=== PATIENT | male | born 1930 ===

== ENCOUNTER 2019-05-17 16:40 | Inpatient (IN) | payer MEDICARE ==
--- NOTE | 2019-05-17 17:10 | RAD ---
Chest AP view INDICATION: Altered mental status with lack of sleep COMPARISON: None FINDINGS: Lungs:The lungs are clear Cardiac silhouette:The cardiomediastinal silhouette appears within normal limits. Pulmonary vasculature:Normal Pleural spaces:No pleural effusion or pneumothorax is demonstrated. Upper abdomen:No abnormality seen. Osseous structures: No acute osseous abnormality. Additional findings:None. IMPRESSION: No acute cardiopulmonary abnormality.
--- NOTE | 2019-05-17 17:23 | CT ---
CT HEAD WITHOUT IV CONTRAST COMPARISON: None HISTORY: Altered mental status TECHNIQUE: Axial CT imaging at 5 mm intervals from vertex through skull base without contrast FINDINGS: There is decreased attenuation in the periventricular white matter which is nonspecific but likely re flective of chronic small vessel ischemic changes. There is mild cerebral volume loss. The ventricular system is normal in size, shape, and position for the degree of sulcal atrophy. There is no evidence of an acute infarction, hemorrhage, mass effect, or midline shift. Trace mucosal thickening is seen in the left sphenoid sinus and right maxillary antrum. Mastoid air c ells are clear. The left aspect posterior arch of the C2 vertebral body is not visualized, but this may be related to incomplete imaging of the C2 vertebral body versus developmental defect. Calvarium demonstrates a normal CT appearance, and no calvarial fracture is seen. IMPRESSION: 1. No acute intracranial abnormality demonstrated. 2. Chronic small vessel ischemic changes and cerebral volume loss.
[2019-05-17 17:28] LABS: #Eosinphils 0.2 thou/uL (0.0-0.7); #Lymphocytes 1.8 thou/uL (1.20-3.40); #Monocytes 0.9 thou/uL (0.11-0.59); #Neutrophils 6.5 thou/uL (1.40-6.50); %Basophils 0.3 % (0.0-1.0); %Eosinophils 1.8 % (0.0-10.0); %Lymphocytes 19.6 % (21.0-51.0); %Monocytes 9.2 % (0.0-10.0); %Neutrophils 69.2 % (42.0-75.0); Hemoglobin 13.5 g/dL (14.0-18.0); Mean Corpuscular HGB CONC 32.8 g/dL (32.0-36.0); Mean Corpuscular Hemoglobin 32.7 pg (27.0-31.0); Mean Corpuscular Volume 99.5 fL (78.0-98.0); Mean Platelet Volume 7.7 fL (7.4-10.4); Platelet Count 227 thou/uL (130-400); RBC Distribution Width 12.7 % (11.5-14.5); Red Blood Cell (RBC) Count 4.13 mill/uL (4.70-6.10); White Blood Cell (WBC) Count 9.4 thou/uL (4.8-10.8)
[2019-05-17 17:35] LABS: PTT 31.7 SEC (22.9-36.1)
[2019-05-17 17:53] LABS: ALT (SGPT) 15 U/L (8-55); AST (SGOT) 19 U/L (5-34); Albumin 4.6 g/dL (3.4-4.8); Alkaline Phosphatase 69 U/L (40-110); Anion Gap 11 mmol/L (10-20); BUN (Urea Nitrogen) 17 mg/dL (8.4-25.7); Bilirubin, Total 0.4 mg/dL (0.2-1.2); CK (CPK) 296 U/L (30-200); Calc. Creatinine Clearance 0 mL/min (70-130); Calcium 9.8 mg/dL (7.8-10.44); Carbon Dioxide 27 mmol/L (23-31); Chloride 106 mmol/L (98-107); Estimated GFR-MDRD 51; Glucose 117 mg/dL (83-110); Protein, Total 7.6 g/dL (5.8-8.1); Sodium 140 mmol/L (136-145)
[2019-05-17 19:11] LABS: Bacteria/HPF 4+ HPF (None Seen); Bilirubin Negative (Negative); Blood, Urine Negative (Negative); Clarity Turbid (Clear); Glucose, Urine (Dipstick) Normal (Negative); Leukocyte 500 Leu/uL (Negative); Nitrite 2+ (Negative); Protein, Urine (Dipstick) 50 mg/dL (Neg-Trace); RBC/HPF 0-3 HPF (0-3); Squamous Epithelial 0-3 HPF (0-3); Urobilinogen Normal mg/dL (Less than 2); WBC/HPF 21-50 HPF (0-3)
[2019-05-17] MEDS ORDERED: cefTRIAXone\\ROCEPHIN 2 GM VIAL ONE (19:55)
[2019-05-17] MEDS ORDERED: traMADol HCl 50 MG TAB ONE (19:55)
[2019-05-17 21:36] LABS: Troponin I 0.046 ng/mL (< 0.028)
[2019-05-17] MEDS ORDERED: Ondansetron PF 4 MG/2 ML Vial IVP PRN (22:21)
[2019-05-17] MEDS ORDERED: Ondansetron ODT 4 MG TAB SL PRN (22:21)
[2019-05-17] MEDS ORDERED: Sodium Chloride 0.9% 1,000 ML IV SCH (22:30)
[2019-05-17 22:37] VITALS: BMI 25.4
[2019-05-18] MEDS: Acetaminophen 325 MG TAB PO PRN (00:57)
[2019-05-18 01:10] LABS: Troponin I 0.034 ng/mL (< 0.028)
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
[2019-05-18 04:33] LABS: #Eosinphils 0.3 thou/uL (0.0-0.7); #Monocytes 0.8 thou/uL (0.11-0.59); #Neutrophils 4.9 thou/uL (1.40-6.50); %Basophils 0.5 % (0.0-1.0); %Eosinophils 3.6 % (0.0-10.0); %Lymphocytes 24.8 % (21.0-51.0); %Monocytes 9.8 % (0.0-10.0); %Neutrophils 61.3 % (42.0-75.0); Hemoglobin 12.3 g/dL (14.0-18.0); Mean Corpuscular HGB CONC 32.2 g/dL (32.0-36.0); Mean Corpuscular Hemoglobin 32.6 pg (27.0-31.0); Mean Platelet Volume 8.1 fL (7.4-10.4); Platelet Count 194 thou/uL (130-400); RBC Distribution Width 12.7 % (11.5-14.5); Red Blood Cell (RBC) Count 3.78 mill/uL (4.70-6.10)
[2019-05-18 04:55] LABS: Anion Gap 12 mmol/L (10-20); BUN (Urea Nitrogen) 14 mg/dL (8.4-25.7); Calc. Creatinine Clearance 77 mL/min (70-130); Carbon Dioxide 22 mmol/L (23-31); Chloride 108 mmol/L (98-107); Estimated GFR-MDRD 75; Glucose 102 mg/dL (83-110); Potassium 3.8 mmol/L (3.5-5.1); Sodium 138 mmol/L (136-145)
[2019-05-18] MEDS: Enoxaparin Sodium 40 MG/0.4 ML SYRINGE SC SCH (10:09)
[2019-05-18] MEDS: Phenazopyridine HCl 97.5 MG TABLET PO PRN (10:09)
[2019-05-18] MEDS: Famotidine 20 MG TAB PO SCH (10:09)
[2019-05-18] MEDS: cefTRIAXone\\ROCEPHIN 1 GM in Sodium Chloride 0.9% 100 ML IVPB SCH (11:02)
[2019-05-18] MEDS: Morphine 2 MG/ML SYRINGE SLOW IVP PRN ×2 (11:03→23:29)
--- NOTE | 2019-05-18 13:54 | PDOC.HOSPP ---
- Subjective Encounter Date: 05/18/19 Encounter Time: 10:40 Subjective: quite confused, off the bed. d/w RN on today's plan. pt has diaper. penozopyridine trial for bladder spasm. may need santana, if he allows us. Fall risk, consider having a sitter. - Objective Vital Signs & Weight: Vital Signs (12 hours) Temp Pulse Resp BP BP Pulse Ox 05/18/19 11:12 97.5 F L 115 H 18 139/80 97 05/18/19 08:30 97.5 F L 107 H 18 158/87 H 99 05/18/19 04:06 98.3 F 110 H 18 148/75 H 97 Weight Weight 214 lb 6.4 oz I&O: 05/17/19 05/18/19 05/19/19 06:59 06:59 06:59 Intake Total 1920 Output Total 150 Balance 1770 Result Diagrams: 05/18/19 03:57 05/18/19 03:57 Hospitalist ROS - Medication Medications: Active Medications Generic Name Dose Route Start Last Admin Trade Name Freq PRN Reason Stop Dose Admin Acetaminophen 650 mg 05/18/19 00:06 05/18/19 00:57 Tylenol PO 650 mg Q4H PRN Administration Headache/Fever/Mild Pain (1-3) Enoxaparin Sodium 40 mg 05/18/19 09:00 05/18/19 10:09 Lovenox SC 40 mg 0900 AMANDA Administration Famotidine 20 mg 05/18/19 09:00 05/18/19 10:09 Pepcid PO 20 mg 0900 AMANDA Administration Ceftriaxone Sodium 1 gm/ 100 mls @ 200 mls/hr 05/18/19 11:00 05/18/19 11:02 Sodium Chloride IVPB 100 mls 1100 AMANDA Administration Morphine Sulfate 1 mg 05/18/19 10:32 05/18/19 11:03 Morphine SLOW IVP 05/20/19 10:33 1 mg Q12H PRN Administration Pain Phenazopyridine HCl 195 mg 05/18/19 09:42 05/18/19 10:09 Azo Standard PO 195 mg TIDPRN PRN Administration Pain - Exam General Appearance: NAD General - other findings: AOx1 Eye: PERRL ENT: normocephalic atraumatic Neck: supple, symmetric Heart: RRR Respiratory: CTAB Gastrointestinal: normal bowel sounds Neurological: cranial nerve grossly intact, no focal deficits Hosp A/P - Plan Acute metab encephlaopathy -poss d/t UTI -no mich has been scheduled. - will notify micro lab to do urine mcih & Sens. - may need another sample. -cw ctx. UTI - as above -pehnozopyridine, PRN Dementia -supportive care No family around during my rounds. full code.
[2019-05-18] MEDS ORDERED: cefTRIAXone\\ROCEPHIN 1 GM in Sodium Chloride 0.9% 100 ML IVPB SCH (20:00)
[2019-05-18] MEDS: Melatonin 3 MG TAB PO PRN (23:53)
[2019-05-19] MEDS: Morphine 2 MG/ML SYRINGE SLOW IVP PRN (07:45)
[2019-05-19] MEDS: Phenazopyridine HCl 97.5 MG TABLET PO PRN ×2 (07:46→20:08)
[2019-05-19] MEDS ORDERED: hydrALAZINE 20 MG/ML VIAL SLOW IVP PRN (10:05)
--- NOTE | 2019-05-19 10:50 | PDOC.HOSPP ---
- Subjective Encounter Date: 05/19/19 Encounter Time: 09:55 Subjective: more alert today unlike y'day, but keep asking for four [severe dementia- starting back home meds - Objective Vital Signs & Weight: Vital Signs (12 hours) Temp Pulse Resp BP Pulse Ox 05/19/19 07:37 97.6 F 84 18 170/80 H 99 05/19/19 03:32 97.4 F L 65 16 153/95 H 93 L 05/18/19 23:44 155/76 H Weight Weight 214 lb 6.4 oz I&O: 05/18/19 05/19/19 05/20/19 06:59 06:59 06:59 Intake Total 1920 1500 Output Total 150 200 Balance 1770 1300 Result Diagrams: 05/18/19 03:57 05/18/19 03:57 Hospitalist ROS - Medication Medications: Active Medications Generic Name Dose Route Start Last Admin Trade Name Freq PRN Reason Stop Dose Admin Acetaminophen 650 mg 05/18/19 00:06 05/18/19 00:57 Tylenol PO 650 mg Q4H PRN Administration Headache/Fever/Mild Pain (1-3) Enoxaparin Sodium 40 mg 05/18/19 09:00 05/18/19 10:09 Lovenox SC 40 mg 0900 AMANDA Administration Famotidine 20 mg 05/18/19 09:00 05/18/19 10:09 Pepcid PO 20 mg 0900 AMANDA Administration Ceftriaxone Sodium 1 gm/ 100 mls @ 200 mls/hr 05/18/19 11:00 05/18/19 11:02 Sodium Chloride IVPB 100 mls 1100 AMANDA Administration Melatonin 3 mg 05/18/19 23:13 05/18/19 23:53 Melatonin PO 3 mg HSPRN PRN Administration Insomnia Morphine Sulfate 1 mg 05/18/19 10:32 05/19/19 07:45 Morphine SLOW IVP 05/20/19 10:33 1 mg Q12H PRN Administration Pain Phenazopyridine HCl 195 mg 05/18/19 09:42 05/19/19 07:46 Azo Standard PO 195 mg TIDPRN PRN Administration Pain Sodium Chloride 10 ml 05/18/19 21:00 05/19/19 07:47 Flush - Normal Saline IVF 10 ml Q12HR AMANDA Administration - Exam General Appearance: NAD, awake alert General - other findings: still disoreinted ENT: normocephalic atraumatic Neck: supple Heart: RRR Respiratory: no wheezes, rales, rhonchi Gastrointestinal: soft, normal bowel sounds Neurological: no focal deficits Hosp A/P - Plan Acute metab encephlaopathy with underlying hx of dementia -poss d/t UTI -no mich has been scheduled. - will notify micro lab to do urine mich & Sens. - may need another sample. -cw ctx. GNR UTI - on ctx -sens pending. -phenozopyridine, PRN for bladder discomfort. abn.troponin --prob metabolic mismatch, type II. -on BB< aCEI Dementia -supportive care -ordered TSH, apurva D, B12 and [place] level and pl fw on BPH -on tamsulosin No family around during my rounds. full code.
[2019-05-19] MEDS ORDERED: Cyanocobalamin (Vitamin B-12) 1,000 MCG TAB PO SCH (11:15)
[2019-05-19] MEDS ORDERED: Atenolol 25 MG TAB PO SCH ×2 (11:15→21:00)
[2019-05-19] MEDS ORDERED: Amlodipine 10 MG TAB PO SCH (11:15)
[2019-05-19] MEDS ORDERED: Lisinopril 20 MG TAB PO SCH (11:15)
[2019-05-19] MEDS ORDERED: Tamsulosin HCl 0.4 MG CAP PO SCH (11:15)
[2019-05-19] MEDS: Famotidine 20 MG TAB PO SCH (11:37)
[2019-05-19] MEDS: traMADol HCl 50 MG TAB PO PRN (11:39)
[2019-05-19] MEDS: Enoxaparin Sodium 40 MG/0.4 ML SYRINGE SC SCH (11:41)
[2019-05-19] MEDS: cefTRIAXone\\ROCEPHIN 1 GM in Sodium Chloride 0.9% 100 ML IVPB SCH (11:42)
[2019-05-19 12:10] LABS: Vitamin D, 25 Hydroxy 13.6 ng/ml (> 30.0)
[2019-05-19] MEDS: Budesonide 0.5 MG/2 ML NEB NEB SCH (18:49)
[2019-05-19] MEDS: Atenolol 25 MG TAB PO SCH (20:08)
[2019-05-19] MEDS: Finasteride 5 MG TAB PO SCH (20:09)
[2019-05-20] MEDS: Lisinopril 20 MG TAB PO SCH (08:42)
[2019-05-20] MEDS: Tamsulosin HCl 0.4 MG CAP PO SCH (08:43)
[2019-05-20] MEDS: Atenolol 25 MG TAB PO SCH ×2 (08:43→20:34)
[2019-05-20] MEDS: Cyanocobalamin (Vitamin B-12) 1,000 MCG TAB PO SCH (08:43)
[2019-05-20] MEDS: Famotidine 20 MG TAB PO SCH (08:43)
[2019-05-20] MEDS: Amlodipine 10 MG TAB PO SCH (08:44)
[2019-05-20] MEDS: Enoxaparin Sodium 40 MG/0.4 ML SYRINGE SC SCH (08:47)
[2019-05-20] MEDS: Budesonide 0.5 MG/2 ML NEB NEB SCH ×2 (08:53→19:42)
[2019-05-20] MEDS ORDERED: Lisinopril 20 MG TAB PO SCH (09:00)
[2019-05-20] MEDS ORDERED: Cyanocobalamin (Vitamin B-12) 1,000 MCG TAB PO SCH (09:00)
[2019-05-20] MEDS: cefTRIAXone\\ROCEPHIN 1 GM in Sodium Chloride 0.9% 100 ML IVPB SCH (12:00)
--- NOTE | 2019-05-20 12:27 | PDOC.HOSPP ---
- Subjective Encounter Date: 05/20/19 Encounter Time: 08:40 Subjective: not in distress, not fully oriented but tries to communicate. - Objective Vital Signs & Weight: Vital Signs (12 hours) Temp Pulse Resp BP BP Pulse Ox 05/20/19 08:53 89 20 05/20/19 08:44 71 05/20/19 08:43 71 149/73 H 05/20/19 08:42 149/73 H 05/20/19 07:47 97.6 F 71 18 149/73 H 98 05/20/19 03:45 97.3 F L 87 14 146/82 H 92 L Weight Weight 214 lb 6.4 oz I&O: 05/19/19 05/20/19 05/21/19 06:59 06:59 06:59 Intake Total 1500 2049 Output Total 200 1550 Balance 1300 0 -1550 Result Diagrams: 05/18/19 03:57 05/18/19 03:57 Hospitalist ROS - Medication Medications: Active Medications Generic Name Dose Route Start Last Admin Trade Name Freq PRN Reason Stop Dose Admin Acetaminophen 650 mg 05/18/19 00:06 05/18/19 00:57 Tylenol PO 650 mg Q4H PRN Administration Headache/Fever/Mild Pain (1-3) Albuterol/Ipratropium 3 ml 05/19/19 13:00 05/20/19 11:22 Duoneb NEB Not Given QID AMANDA Amlodipine Besylate 10 mg 05/20/19 09:00 05/20/19 08:44 Norvasc PO 10 mg DAILY AMANDA Administration Atenolol 25 mg 05/19/19 21:00 05/20/19 08:43 Tenormin PO 25 mg BID AMANDA Administration Budesonide 0.5 mg 05/19/19 21:00 05/20/19 08:53 Pulmicort Neb Solution NEB 0.5 mg BID AMANDA Administration Cyanocobalamin 1,000 mcg 05/20/19 09:00 05/20/19 08:43 Vitamin B-12 PO 1,000 mcg DAILY AMANDA Administration Enoxaparin Sodium 40 mg 05/18/19 09:00 05/20/19 08:47 Lovenox SC 40 mg 0900 AMANDA Administration Famotidine 20 mg 05/18/19 09:00 05/20/19 08:43 Pepcid PO 20 mg 0900 AMANDA Administration Finasteride 5 mg 05/19/19 21:00 05/19/19 20:09 Proscar PO 5 mg HS AMANDA Administration Ceftriaxone Sodium 1 gm/ 100 mls @ 200 mls/hr 05/18/19 11:00 05/20/19 12:00 Sodium Chloride IVPB 100 mls 1100 AMANDA Administration Lisinopril 40 mg 05/20/19 09:00 05/20/19 08:42 Zestril PO 40 mg DAILY AMANDA Administration [place] Carbonate 300 mg 05/19/19 21:00 05/20/19 08:44 Lithobid Er PO 300 mg BID AMANDA Administration Melatonin 3 mg 05/18/19 23:13 05/18/19 23:53 Melatonin PO 3 mg HSPRN PRN Administration Insomnia Phenazopyridine HCl 195 mg 05/18/19 09:42 05/19/19 20:08 Azo Standard PO 195 mg TIDPRN PRN Administration Pain Sodium Chloride 10 ml 05/18/19 21:00 05/20/19 08:47 Flush - Normal Saline IVF 10 ml Q12HR AMANDA Administration Sodium Chloride 10 ml 05/18/19 09:41 05/20/19 12:01 Flush - Normal Saline IVF 10 ml PRN PRN Administration Saline Flush Tamsulosin HCl 0.4 mg 05/20/19 09:00 05/20/19 08:43 Flomax PO 0.4 mg DAILY AMANDA Administration Tramadol HCl 50 mg 05/19/19 10:04 05/19/19 11:39 Ultram PO 50 mg QIDPRN PRN Administration Pain - Exam General Appearance: awake alert Eye: PERRL, anicteric sclera ENT: no oropharyngeal lesions, dry oral mucosa Neck: supple, no JVD Heart: no murmur, no gallops Respiratory: no wheezes, no rales Gastrointestinal: soft, non-tender, non-distended, normal bowel sounds Extremities: no cyanosis, no edema Neurological: cranial nerve grossly intact, no focal deficits Hosp A/P (1) UTI (urinary tract infection) Status: Acute Qualifiers: Urinary tract infection type: acute cystitis Hematuria presence: without hematuria Qualified Code(s): N30.00 - Acute cystitis without hematuria (2) Acute metabolic encephalopathy Code(s): G93.41 - METABOLIC ENCEPHALOPATHY Status: Acute (3) Dementia Code(s): F03.90 - UNSPECIFIED DEMENTIA WITHOUT BEHAVIORAL DISTURBANCE Status: Chronic Qualifiers: Dementia type: Alzheimer's disease (4) HTN (hypertension) Code(s): I10 - ESSENTIAL (PRIMARY) HYPERTENSION Status: Chronic Qualifiers: Hypertension type: essential hypertension Qualified Code(s): I10 - Essential (primary) hypertension (5) BPH (benign prostatic hyperplasia) Code(s): N40.0 - BENIGN PROSTATIC HYPERPLASIA WITHOUT LOWER URINRY TRACT SYMP Status: Chronic Qualifiers: Lower urinary tract symptom presence: symptoms present Lower urinary tract symptom detail: urinary retention Qualified Code(s): N40.1 - Benign prostatic hyperplasia with lower urinary tract symptoms; R33.8 - Other retention of urine (6) Urinary retention Code(s): R33.9 - RETENTION OF URINE, UNSPECIFIED Status: Acute (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 cipro for uti, continue norvasc, lisinopril, atenolol, flomax, proscar, pulmicort inh. likely has bipolar disorder and is on lithium bid tx patient to medical floor hemostable dc plan in am if stable
[2019-05-20] MEDS: traMADol HCl 50 MG TAB PO PRN ×2 (18:31→23:36)
[2019-05-20] MEDS: Acetaminophen 325 MG TAB PO PRN ×2 (18:32→23:35)
[2019-05-20] MEDS: Melatonin 3 MG TAB PO PRN (20:33)
[2019-05-20] MEDS: Phenazopyridine HCl 97.5 MG TABLET PO PRN (20:33)
[2019-05-20] MEDS: Ciprofloxacin 500 MG TAB PO SCH (20:34)
[2019-05-20] MEDS: Finasteride 5 MG TAB PO SCH (20:34)
[2019-05-20] MEDS: Temazepam 15 MG CAP PO PRN (21:42)
[2019-05-21] MEDS: Lorazepam 0.5 MG TAB PO PRN ×3 (01:11→21:09)
[2019-05-21] MEDS: Ciprofloxacin 500 MG TAB PO SCH ×2 (05:48→19:48)
[2019-05-21] MEDS: Budesonide 0.5 MG/2 ML NEB NEB SCH ×3 (06:11→19:15)
[2019-05-21 09:11] LABS: #Eosinphils 0.3 thou/uL (0.0-0.7); #Lymphocytes 1.7 thou/uL (1.20-3.40); #Monocytes 0.9 thou/uL (0.11-0.59); #Neutrophils 5.4 thou/uL (1.40-6.50); %Basophils 0.5 % (0.0-1.0); %Monocytes 10.9 % (0.0-10.0); %Neutrophils 64.7 % (42.0-75.0); Hemoglobin 12.2 g/dL (14.0-18.0); Mean Corpuscular HGB CONC 33.1 g/dL (32.0-36.0); Mean Corpuscular Hemoglobin 33.3 pg (27.0-31.0); Platelet Count 142 thou/uL (130-400); RBC Distribution Width 12.5 % (11.5-14.5); Red Blood Cell (RBC) Count 3.67 mill/uL (4.70-6.10); White Blood Cell (WBC) Count 8.3 thou/uL (4.8-10.8)
[2019-05-21 09:33] LABS: ALT (SGPT) 9 U/L (8-55); AST (SGOT) 11 U/L (5-34); Albumin 3.6 g/dL (3.4-4.8); Alkaline Phosphatase 49 U/L (40-110); Anion Gap 12 mmol/L (10-20); BUN (Urea Nitrogen) 30 mg/dL (8.4-25.7); Bilirubin, Total 0.3 mg/dL (0.2-1.2); Calc. Creatinine Clearance 54 mL/min (70-130); Calcium 8.6 mg/dL (7.8-10.44); Carbon Dioxide 21 mmol/L (23-31); Chloride 105 mmol/L (98-107); Estimated GFR-MDRD 51; Globulin 2.5 g/dL (2.4-3.5); Glucose 134 mg/dL (83-110); Potassium 3.9 mmol/L (3.5-5.1); Protein, Total 6.1 g/dL (5.8-8.1); Sodium 134 mmol/L (136-145)
[2019-05-21] MEDS: Atenolol 25 MG TAB PO SCH (09:35)
[2019-05-21] MEDS: Famotidine 20 MG TAB PO SCH (09:35)
[2019-05-21] MEDS: Amlodipine 10 MG TAB PO SCH (09:36)
[2019-05-21] MEDS: Lisinopril 20 MG TAB PO SCH (09:36)
[2019-05-21] MEDS: Cyanocobalamin (Vitamin B-12) 1,000 MCG TAB PO SCH (09:37)
[2019-05-21] MEDS: Tamsulosin HCl 0.4 MG CAP PO SCH (09:37)
[2019-05-21] MEDS: Enoxaparin Sodium 40 MG/0.4 ML SYRINGE SC SCH (09:38)
--- NOTE | 2019-05-21 12:39 | PDOC.HOSPP ---
- Subjective Encounter Date: 05/21/19 Encounter Time: 11:45 Subjective: is watching tv, not in distress no complaints, says he feels good. - Objective Vital Signs & Weight: Vital Signs (12 hours) Temp Pulse Resp BP BP BP Pulse Ox 05/21/19 12:09 97.8 F 57 L 18 129/80 93 L 05/21/19 10:26 71 16 93 L 05/21/19 09:36 50 L 149/73 H 05/21/19 09:35 50 L 113/69 05/21/19 08:16 97.5 F L 50 L 16 113/69 95 05/21/19 08:00 94 L 05/21/19 06:11 65 16 94 L 05/21/19 05:05 97.6 F 50 L 20 111/56 L 94 L Weight Weight 214 lb 6.4 oz I&O: 05/20/19 05/21/19 05/22/19 06:59 06:59 06:59 Intake Total 2049 158 Output Total 2330 Balance 2049 - Result Diagrams: 05/21/19 09:03 05/21/19 09:03 Hospitalist ROS - Medication Medications: Active Medications Generic Name Dose Route Start Last Admin Trade Name Freq PRN Reason Stop Dose Admin Acetaminophen 650 mg 05/18/19 00:06 05/20/19 23:35 Tylenol PO 650 mg Q4H PRN Administration Headache/Fever/Mild Pain (1-3) Albuterol/Ipratropium 3 ml 05/21/19 07:00 05/21/19 10:26 Duoneb NEB 3 ml QID-RT AMANDA Administration Amlodipine Besylate 10 mg 05/20/19 09:00 05/21/19 09:36 Norvasc PO 10 mg DAILY AMANDA Administration Atenolol 25 mg 05/21/19 09:00 05/21/19 09:35 Tenormin PO 25 mg DAILY AMANDA Administration Budesonide 0.5 mg 05/21/19 06:30 05/21/19 06:17 Pulmicort Neb Solution NEB Not Given BID-RT AMANDA Ciprofloxacin 500 mg 05/20/19 20:00 05/21/19 05:48 Cipro PO 500 mg 06,1999 AMANDA Administration Cyanocobalamin 1,000 mcg 05/20/19 09:00 05/21/19 09:37 Vitamin B-12 PO 1,000 mcg DAILY AMANDA Administration Enoxaparin Sodium 40 mg 05/18/19 09:00 05/21/19 09:38 Lovenox SC 40 mg 09 AMANDA Administration Famotidine 20 mg 05/18/19 09:00 05/21/19 09:35 Pepcid PO 20 mg 0900 AMANDA Administration Finasteride 5 mg 05/19/19 21:00 05/20/19 20:34 Proscar PO 5 mg HS AMANDA Administration Lisinopril 40 mg 05/20/19 09:00 05/21/19 09:36 Zestril PO 40 mg DAILY AMANDA Administration [place] Carbonate 300 mg 05/19/19 21:00 05/21/19 09:38 Lithobid Er PO 300 mg BID AMANDA Administration Melatonin 3 mg 05/18/19 23:13 05/20/19 20:33 Melatonin PO 3 mg HSPRN PRN Administration Insomnia Phenazopyridine HCl 195 mg 05/18/19 09:42 05/20/19 20:33 Azo Standard PO 195 mg TIDPRN PRN Administration Pain Sodium Chloride 10 ml 05/18/19 21:00 05/21/19 09:39 Flush - Normal Saline IVF 10 ml Q12HR AMANDA Administration Sodium Chloride 10 ml 05/18/19 09:41 05/20/19 12:01 Flush - Normal Saline IVF 10 ml PRN PRN Administration Saline Flush Tamsulosin HCl 0.4 mg 05/20/19 09:00 05/21/19 09:37 Flomax PO 0.4 mg DAILY AMANDA Administration Temazepam 15 mg 05/20/19 21:29 05/20/19 21:42 Restoril PO 15 mg HSPRN PRN Administration Insomnia Tramadol HCl 50 mg 05/19/19 10:04 05/20/19 23:36 Ultram PO 50 mg QIDPRN PRN Administration Pain - Exam General Appearance: awake alert Eye: PERRL, anicteric sclera ENT: no oropharyngeal lesions, moist mucosa Neck: supple, no JVD Heart: RRR, no murmur Respiratory: no wheezes, no rales Gastrointestinal: soft, non-tender, non-distended, normal bowel sounds Extremities: no cyanosis, no edema Neurological: cranial nerve grossly intact, no focal deficits Hosp A/P (1) UTI (urinary tract infection) Status: Acute Qualifiers: Urinary tract infection type: acute cystitis Hematuria presence: without hematuria Qualified Code(s): N30.00 - Acute cystitis without hematuria (2) Acute metabolic encephalopathy Code(s): G93.41 - METABOLIC ENCEPHALOPATHY Status: Acute (3) Dementia Code(s): F03.90 - UNSPECIFIED DEMENTIA WITHOUT BEHAVIORAL DISTURBANCE Status: Chronic Qualifiers: Dementia type: Alzheimer's disease (4) HTN (hypertension) Code(s): I10 - ESSENTIAL (PRIMARY) HYPERTENSION Status: Chronic Qualifiers: Hypertension type: essential hypertension Qualified Code(s): I10 - Essential (primary) hypertension (5) BPH (benign prostatic hyperplasia) Code(s): N40.0 - BENIGN PROSTATIC HYPERPLASIA WITHOUT LOWER URINRY TRACT SYMP Status: Chronic Qualifiers: Lower urinary tract symptom presence: symptoms present Lower urinary tract symptom detail: urinary retention Qualified Code(s): N40.1 - Benign prostatic hyperplasia with lower urinary tract symptoms; R33.8 - Other retention of urine (6) Urinary retention Code(s): R33.9 - RETENTION OF URINE, UNSPECIFIED Status: Acute (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 cipro for uti, continue norvasc, lisinopril, decrease atenolol to daily(bid at home) due to hr around 50/min, flomax, proscar, pulmicort inh. likely has bipolar disorder and is on lithium bid hemostable dc plan in am if stable
[2019-05-21] MEDS: Finasteride 5 MG TAB PO SCH (19:47)
[2019-05-21] MEDS: Phenazopyridine HCl 97.5 MG TABLET PO PRN (19:47)
[2019-05-21] MEDS: Melatonin 3 MG TAB PO PRN (19:47)
[2019-05-21] MEDS: Temazepam 15 MG CAP PO PRN (19:48)
[2019-05-21] MEDS: traMADol HCl 50 MG TAB PO PRN (21:07)
[2019-05-21] MEDS: Acetaminophen 325 MG TAB PO PRN (21:07)
[2019-05-22] MEDS: Lorazepam 0.5 MG TAB PO PRN (00:58)
[2019-05-22] MEDS ORDERED: Lorazepam 0.5 MG TAB PO SCH (03:30)
[2019-05-22] MEDS: Ciprofloxacin 500 MG TAB PO SCH ×2 (04:51→20:19)
[2019-05-22] MEDS: Acetaminophen 325 MG TAB PO PRN ×2 (04:51→20:19)
[2019-05-22] MEDS: traMADol HCl 50 MG TAB PO PRN ×2 (04:52→20:21)
[2019-05-22 06:49] LABS: #Eosinphils 0.3 thou/uL (0.0-0.7); #Lymphocytes 1.4 thou/uL (1.20-3.40); #Monocytes 0.9 thou/uL (0.11-0.59); #Neutrophils 5.1 thou/uL (1.40-6.50); %Basophils 0.6 % (0.0-1.0); %Eosinophils 4.1 % (0.0-10.0); %Lymphocytes 18.4 % (21.0-51.0); %Monocytes 11.2 % (0.0-10.0); %Neutrophils 65.7 % (42.0-75.0); Hemoglobin 11.7 g/dL (14.0-18.0); Mean Corpuscular HGB CONC 33.6 g/dL (32.0-36.0); Mean Corpuscular Hemoglobin 33.6 pg (27.0-31.0); Mean Corpuscular Volume 99.9 fL (78.0-98.0); Mean Platelet Volume 8.2 fL (7.4-10.4); Platelet Count 143 thou/uL (130-400); RBC Distribution Width 12.3 % (11.5-14.5); Red Blood Cell (RBC) Count 3.49 mill/uL (4.70-6.10); White Blood Cell (WBC) Count 7.7 thou/uL (4.8-10.8)
[2019-05-22 07:09] LABS: ALT (SGPT) 8 U/L (8-55); AST (SGOT) 9 U/L (5-34); Albumin 3.6 g/dL (3.4-4.8); Alkaline Phosphatase 48 U/L (40-110); Anion Gap 10 mmol/L (10-20); BUN (Urea Nitrogen) 27 mg/dL (8.4-25.7); Bilirubin, Total 0.3 mg/dL (0.2-1.2); Calc. Creatinine Clearance 68 mL/min (70-130); Calcium 8.9 mg/dL (7.8-10.44); Carbon Dioxide 25 mmol/L (23-31); Chloride 107 mmol/L (98-107); Estimated GFR-MDRD 66; Globulin 2.6 g/dL (2.4-3.5); Glucose 105 mg/dL (83-110); Magnesium 2.3 mg/dL (1.6-2.6); Protein, Total 6.2 g/dL (5.8-8.1); Sodium 138 mmol/L (136-145)
[2019-05-22] MEDS: Atenolol 25 MG TAB PO SCH (08:05)
[2019-05-22] MEDS: Famotidine 20 MG TAB PO SCH (08:05)
[2019-05-22] MEDS: Amlodipine 10 MG TAB PO SCH (08:05)
[2019-05-22] MEDS: Lisinopril 20 MG TAB PO SCH (08:06)
[2019-05-22] MEDS: Cyanocobalamin (Vitamin B-12) 1,000 MCG TAB PO SCH (08:06)
[2019-05-22] MEDS: Tamsulosin HCl 0.4 MG CAP PO SCH (08:06)
[2019-05-22] MEDS: Enoxaparin Sodium 40 MG/0.4 ML SYRINGE SC SCH (08:07)
[2019-05-22] MEDS: Budesonide 0.5 MG/2 ML NEB NEB SCH ×2 (10:23→20:20)
--- NOTE | 2019-05-22 12:34 | PDOC.HOSPP ---
- Subjective Encounter Date: 05/22/19 Encounter Time: 11:45 Subjective: awake, responds to verbal stimuli knows he is in [place] and 's name is Kellee not in distress - Objective Vital Signs & Weight: Vital Signs (12 hours) Temp Pulse Resp BP BP Pulse Ox 05/22/19 10:23 48 L 20 98 05/22/19 08:06 149/73 H 05/22/19 08:05 55 L 05/22/19 08:00 96 05/22/19 07:44 97.4 F L 55 L 19 127/72 96 05/22/19 04:56 59 L 18 99 05/22/19 03:35 61 18 99 Weight Weight 214 lb 6.4 oz I&O: 05/21/19 05/22/19 05/23/19 06:59 06:59 06:59 Intake Total 1580 730 240 Output Total 2330 1950 Balance -750 -1220 240 Result Diagrams: 05/22/19 06:39 05/22/19 06:39 Hospitalist ROS - Medication Medications: Active Medications Generic Name Dose Route Start Last Admin Trade Name Freq PRN Reason Stop Dose Admin Acetaminophen 650 mg 05/18/19 00:06 05/22/19 04:51 Tylenol PO 650 mg Q4H PRN Administration Headache/Fever/Mild Pain (1-3) Albuterol/Ipratropium 3 ml 05/21/19 07:00 05/22/19 10:26 Duoneb NEB 3 ml QID-RT AMANDA Administration Amlodipine Besylate 10 mg 05/20/19 09:00 05/22/19 08:05 Norvasc PO 10 mg DAILY AMANDA Administration Atenolol 25 mg 05/21/19 09:00 05/22/19 08:05 Tenormin PO 25 mg DAILY AMANDA Administration Budesonide 0.5 mg 05/21/19 06:30 05/22/19 10:23 Pulmicort Neb Solution NEB 0.5 mg BID-RT AMANDA Administration Ciprofloxacin 500 mg 05/20/19 20:00 05/22/19 04:51 Cipro PO 500 mg 06,1999 AMANDA Administration Cyanocobalamin 1,000 mcg 05/20/19 09:00 05/22/19 08:06 Vitamin B-12 PO 1,000 mcg DAILY AMANDA Administration Enoxaparin Sodium 40 mg 05/18/19 09:00 05/22/19 08:07 Lovenox SC 40 mg 0900 AMANDA Administration Famotidine 20 mg 05/18/19 09:00 05/22/19 08:05 Pepcid PO 20 mg 0900 AMANDA Administration Finasteride 5 mg 05/19/19 21:00 05/21/19 19:47 Proscar PO 5 mg HS AMANDA Administration Lisinopril 40 mg 05/20/19 09:00 05/22/19 08:06 Zestril PO 40 mg DAILY AMANDA Administration [place] Carbonate 300 mg 05/19/19 21:00 05/22/19 08:06 Lithobid Er PO 300 mg BID AMANDA Administration Melatonin 3 mg 05/18/19 23:13 05/21/19 19:47 Melatonin PO 3 mg HSPRN PRN Administration Insomnia Phenazopyridine HCl 195 mg 05/18/19 09:42 05/21/19 19:47 Azo Standard PO 195 mg TIDPRN PRN Administration Pain Sodium Chloride 10 ml 05/18/19 21:00 05/22/19 08:06 Flush - Normal Saline IVF 10 ml Q12HR AMANDA Administration Sodium Chloride 10 ml 05/18/19 09:41 05/20/19 12:01 Flush - Normal Saline IVF 10 ml PRN PRN Administration Saline Flush Tamsulosin HCl 0.4 mg 05/20/19 09:00 05/22/19 08:06 Flomax PO 0.4 mg DAILY AMANDA Administration Temazepam 15 mg 05/20/19 21:29 05/21/19 19:48 Restoril PO 15 mg HSPRN PRN Administration Insomnia Tramadol HCl 50 mg 05/19/19 10:04 05/22/19 04:52 Ultram PO 50 mg QIDPRN PRN Administration Pain - Exam General Appearance: awake alert Eye: PERRL, anicteric sclera ENT: no oropharyngeal lesions, dry oral mucosa Neck: supple, no JVD Heart: RRR, no murmur Respiratory: no wheezes, no rales Gastrointestinal: soft, non-tender, non-distended, normal bowel sounds Gastrointestinal - other findings: santana+ Extremities: no cyanosis, no edema Neurological: cranial nerve grossly intact, no focal deficits Hosp A/P (1) UTI (urinary tract infection) Status: Acute Qualifiers: Urinary tract infection type: acute cystitis Hematuria presence: without hematuria Qualified Code(s): N30.00 - Acute cystitis without hematuria (2) Acute metabolic encephalopathy Code(s): G93.41 - METABOLIC ENCEPHALOPATHY Status: Acute (3) Dementia Code(s): F03.90 - UNSPECIFIED DEMENTIA WITHOUT BEHAVIORAL DISTURBANCE Status: Chronic Qualifiers: Dementia type: Alzheimer's disease (4) HTN (hypertension) Code(s): I10 - ESSENTIAL (PRIMARY) HYPERTENSION Status: Chronic Qualifiers: Hypertension type: essential hypertension Qualified Code(s): I10 - Essential (primary) hypertension (5) BPH (benign prostatic hyperplasia) Code(s): N40.0 - BENIGN PROSTATIC HYPERPLASIA WITHOUT LOWER URINRY TRACT SYMP Status: Chronic Qualifiers: Lower urinary tract symptom presence: symptoms present Lower urinary tract symptom detail: urinary retention Qualified Code(s): N40.1 - Benign prostatic hyperplasia with lower urinary tract symptoms; R33.8 - Other retention of urine (6) Urinary retention Code(s): R33.9 - RETENTION OF URINE, UNSPECIFIED Status: Acute (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 May remove it if it helps him stay calm at night and start straight cath tid. cipro for uti, continue norvasc, lisinopril, decrease atenolol to daily(bid at home) due to hr around 50/min, flomax, proscar, pulmicort inh. likely has bipolar disorder and is on lithium bid hemostable Risperdal low dose QHS. dc plan to [facility] per family preference, medically stable for dc
[2019-05-22] MEDS: Phenazopyridine HCl 97.5 MG TABLET PO PRN (20:18)
[2019-05-22] MEDS: Finasteride 5 MG TAB PO SCH (20:19)
[2019-05-22] MEDS: Melatonin 3 MG TAB PO PRN (20:19)
[2019-05-22] MEDS: Temazepam 15 MG CAP PO PRN (20:21)
[2019-05-22] MEDS ORDERED: risperiDONE 1 MG TAB PO SCH (21:00)
[2019-05-23 05:49] VITALS: TEMP 97.4
[2019-05-23] MEDS: Ciprofloxacin 500 MG TAB PO SCH (05:52)
[2019-05-23] MEDS: traMADol HCl 50 MG TAB PO PRN (05:52)
[2019-05-23] MEDS: Acetaminophen 325 MG TAB PO PRN (05:52)
[2019-05-23] MEDS: Atenolol 25 MG TAB PO SCH (07:38)
[2019-05-23] MEDS: Enoxaparin Sodium 40 MG/0.4 ML SYRINGE SC SCH (07:38)
[2019-05-23] MEDS: Lisinopril 20 MG TAB PO SCH (07:39)
[2019-05-23] MEDS: Famotidine 20 MG TAB PO SCH (07:39)
[2019-05-23] MEDS: Amlodipine 10 MG TAB PO SCH (07:40)
[2019-05-23] MEDS: Tamsulosin HCl 0.4 MG CAP PO SCH (07:40)
[2019-05-23] MEDS: Cyanocobalamin (Vitamin B-12) 1,000 MCG TAB PO SCH (07:40)
[2019-05-23 08:02] VITALS: BP 125/63
[2019-05-23] MEDS: Budesonide 0.5 MG/2 ML NEB NEB SCH (08:28)
--- NOTE | 2019-05-23 15:35 | PDOC.HOSPP ---
- Subjective Encounter Date: 05/23/19 Encounter Time: 07:30 Subjective: conversing well, no complaints - Objective Vital Signs & Weight: Vital Signs (12 hours) Temp Pulse Resp BP BP BP Pulse Ox 05/23/19 15:11 61 20 95 05/23/19 11:04 50 L 18 94 L 05/23/19 08:28 59 L 18 100 05/23/19 08:00 100 05/23/19 07:59 97.4 F L 58 L 20 125/63 100 05/23/19 07:40 54 L 05/23/19 07:39 149/73 H 05/23/19 07:38 54 L 05/23/19 05:55 54 L 16 152/76 H 100 05/23/19 04:00 97.4 F L 55 L 20 179/83 H 100 Weight Weight 214 lb 6.4 oz I&O: 05/22/19 05/23/19 05/24/19 06:59 06:59 06:59 Intake Total 730 1330 600 Output Total 1950 1000 325 Balance -1220 330 275 Result Diagrams: 05/22/19 06:39 05/22/19 06:39 Hospitalist ROS - Medication Medications: Active Medications Generic Name Dose Route Start Last Admin Trade Name Freq PRN Reason Stop Dose Admin Acetaminophen 650 mg 05/18/19 00:06 05/23/19 05:52 Tylenol PO 650 mg Q4H PRN Administration Headache/Fever/Mild Pain (1-3) Albuterol/Ipratropium 3 ml 05/21/19 07:00 05/23/19 15:11 Duoneb NEB 3 ml QID-RT AMANDA Administration Amlodipine Besylate 10 mg 05/20/19 09:00 05/23/19 07:40 Norvasc PO 10 mg DAILY AMANDA Administration Atenolol 25 mg 05/21/19 09:00 05/23/19 07:38 Tenormin PO 25 mg DAILY AMANDA Administration Budesonide 0.5 mg 05/21/19 06:30 05/23/19 08:28 Pulmicort Neb Solution NEB 0.5 mg BID-RT AMANDA Administration Ciprofloxacin 500 mg 05/20/19 20:00 05/23/19 05:52 Cipro PO 500 mg 0600,2000 AMANDA Administration Cyanocobalamin 1,000 mcg 05/20/19 09:00 05/23/19 07:40 Vitamin B-12 PO 1,000 mcg DAILY AMANDA Administration Enoxaparin Sodium 40 mg 05/18/19 09:00 05/23/19 07:38 Lovenox SC 40 mg 0900 AMANDA Administration Famotidine 20 mg 05/18/19 09:00 05/23/19 07:39 Pepcid PO 20 mg 0900 AMANDA Administration Finasteride 5 mg 05/19/19 21:00 05/22/19 20:19 Proscar PO 5 mg HS AMANDA Administration Lisinopril 40 mg 05/20/19 09:00 05/23/19 07:39 Zestril PO 40 mg DAILY AMANDA Administration [place] Carbonate 300 mg 05/19/19 21:00 05/23/19 07:39 Lithobid Er PO 300 mg BID AMANDA Administration Melatonin 3 mg 05/18/19 23:13 05/22/19 20:19 Melatonin PO 3 mg HSPRN PRN Administration Insomnia Phenazopyridine HCl 195 mg 05/18/19 09:42 05/22/19 20:18 Azo Standard PO 195 mg TIDPRN PRN Administration Pain Risperidone 0.5 mg 05/22/19 21:00 05/22/19 20:19 Risperidone PO 0.5 mg HS AMANDA Administration Sodium Chloride 10 ml 05/18/19 21:00 05/23/19 07:40 Flush - Normal Saline IVF 10 ml Q12HR AMANDA Administration Sodium Chloride 10 ml 05/18/19 09:41 05/20/19 12:01 Flush - Normal Saline IVF 10 ml PRN PRN Administration Saline Flush Tamsulosin HCl 0.4 mg 05/20/19 09:00 05/23/19 07:40 Flomax PO 0.4 mg DAILY AMANDA Administration Temazepam 15 mg 05/20/19 21:29 05/22/19 20:21 Restoril PO 15 mg HSPRN PRN Administration Insomnia Tramadol HCl 50 mg 05/19/19 10:04 05/23/19 05:52 Ultram PO 50 mg QIDPRN PRN Administration Pain - Exam General Appearance: awake alert Eye: PERRL, anicteric sclera ENT: no oropharyngeal lesions, moist mucosa Neck: supple, no JVD Heart: RRR, no murmur Respiratory: no wheezes, no rales Gastrointestinal: soft, non-tender, non-distended, normal bowel sounds Extremities: no cyanosis, no edema Neurological: cranial nerve grossly intact, no focal deficits Hosp A/P (1) UTI (urinary tract infection) Status: Acute Qualifiers: Urinary tract infection type: acute cystitis Hematuria presence: without hematuria Qualified Code(s): N30.00 - Acute cystitis without hematuria (2) Acute metabolic encephalopathy Code(s): G93.41 - METABOLIC ENCEPHALOPATHY Status: Acute (3) Dementia Code(s): F03.90 - UNSPECIFIED DEMENTIA WITHOUT BEHAVIORAL DISTURBANCE Status: Chronic Qualifiers: Dementia type: Alzheimer's disease (4) HTN (hypertension) Code(s): I10 - ESSENTIAL (PRIMARY) HYPERTENSION Status: Chronic Qualifiers: Hypertension type: essential hypertension Qualified Code(s): I10 - Essential (primary) hypertension (5) BPH (benign prostatic hyperplasia) Code(s): N40.0 - BENIGN PROSTATIC HYPERPLASIA WITHOUT LOWER URINRY TRACT SYMP Status: Chronic Qualifiers: Lower urinary tract symptom presence: symptoms present Lower urinary tract symptom detail: urinary retention Qualified Code(s): N40.1 - Benign prostatic hyperplasia with lower urinary tract symptoms; R33.8 - Other retention of urine (6) Urinary retention Code(s): R33.9 - RETENTION OF URINE, UNSPECIFIED Status: Acute (7) Macrocytosis without anemia Code(s): D75.89 - OTHER SPECIFIED DISEASES OF BLOOD AND BLOOD-FORMING ORGANS Status: Chronic (8) Mood disorder Code(s): F39 - UNSPECIFIED MOOD [AFFECTIVE] DISORDER Status: Chronic - Plan straight cath tid. cipro for uti, continue norvasc, lisinopril, decrease atenolol to daily(bid at home) due to hr around 50/min, flomax, proscar, pulmicort inh. has bipolar disorder and is on lithium bid hemostable Risperdal 1mg QHS from [facility]. dc pt to [facility], gave verbal report to .
--- NOTE | 2019-05-23 17:22 | DIS ---
DATE OF ADMISSION: 05/17/2019 DATE OF DISCHARGE: 05/23/2019 DISCHARGE DISPOSITION: To [facility]. PRIMARY DISCHARGE DIAGNOSES: Acute metabolic encephalopathy with urinary tract infection, history of benign prostatic hypertrophy with chronic urinary retention and doing straight catheterization 4 times daily prior to arrival, hypertension, macrocytosis without anemia, likely underlying dementia, bipolar disorder. PROCEDURES DONE DURING HOSPITALIZATION: The patient has had chest x-ray done, which showed no acute cardiopulmonary abnormality. CT brain without contrast showed no acute intracranial abnormality. There are chronic small-vessel ischemic changes with cerebral volume loss seen. Urine culture grew E coli, resistant to ampicillin and Macrobid, but otherwise sensitive to all other antibiotics. White count of 7, hemoglobin and hematocrit are 11 and 34, platelet count 143. BUN 27, creatinine 1.0. B12 of 635. 25-hydroxy vitamin D 13.6. Folic acid 12.4. TSH 0.87. DISCHARGE MEDICATIONS: 1. Ciprofloxacin 500 mg p.o. twice daily for another 5 days. 2. Risperdal 1 mg p.o. at bedtime. 3. Atenolol 25 mg p.o. daily. 4. Ultram 50 mg four times daily p.r.n. 5. Flomax 0.4 mg p.o. daily. 6. Proscar 5 mg p.o. at bedtime. 7. [place] 300 mg p.o. twice daily. 8. Lisinopril 40 mg p.o. daily. 9. DuoNebs four times daily p.r.n. 10. Vitamin B12, 5000 mcg p.o. daily. 11. Pulmicort nebulizer twice daily. 12. Norvasc 10 mg daily. ALLERGIES: NO KNOWN DRUG ALLERGIES. DISCHARGE PLAN: The patient to follow up with Dr. Bahena at [facility]. BRIEF COURSE DURING HOSPITALIZATION: The patient initially got admitted on the for confusion/altered mental state, along with the diarrhea and foul-smelling urine for 4 days. His initial workup revealed UTI with sepsis. He was placed on broad-spectrum antibiotics along with gentle hydration. He has done remarkably well during his stay here. The patient has underlying benign prostatic hypertrophy and was doing straight catheterization 4 times daily prior to arrival here. Due to metabolic encephalopathy, he has had a Berry catheter placed and this was removed 24 hours prior to discharge. He is back on straight cath 3 times a day. The patient has underlying dementia with sundowning. He has had deconditioning and will be shortly discharged to [facility]. He was placed on Risperdal 0.5 mg p.o. at bedtime on the , but the patient was still trying to get out of his bed despite being unstable to walk with risk of falls at night. In view of this, this will be increased to 1 mg at bedtime to see if it works for him. I have given complete updates to Dr. Bahena, he is his primary care physician at the senior care where he will be discharged shortly. A total of 35 minutes was spent on discharge plan. Please see a [id number] documentation for the day of discharge on [employer]. Job ID: [id number]
--- NOTE | 2019-05-24 02:11 | PQF ---
[employer] Glass [employer] Winform Viewer AISHA,SERGEI PHAN MD [id number] [id number] [id number] CLINICAL DOCUMENTATION CLARIFICATION FORM: POST DISCHARGE Addendum to original discharge summary date: ____ Late entry note date: __ DATE: 05/24/19 ATTN:Sergei Singh Please exercise your independent, professional judgment in responding to the clarification form. Clinical indicators are provided on the bottom of this form for your review Cab you please further clarify if Sepsis is ruled in or ruled out? Sepsis [ x] Ruled in diagnosis [ ] Continue to treat [ x] Resolved [ ] Ruled out diagnosis [ ] Cannot rule out diagnosis [ ] Other diagnosis [ ] Unable to determine In addition, please specify: Present on Admission (POA): [ x ] Yes [ ] No [ ] Unable to determine For continuity of documentation, please document condition throughout progress notes and discharge summary. Thank You. CLINICAL INDICATORS - SIGNS / SYMPTOMS / LABS DS pg.2- Initial work up revealed UTI with Sepsis DH and P pg.1- altered mental status H and P pg.2- VS BP 113/87, pulse 109, respiration 21, temp 97.7 DS pg.1- doing straight catheterization 4 times daily prior arrival DS pg.1- Urine culture grew E.coli, resistant to ampicillin RISK FACTORS UTI- DS pg.1 Acute metabolic encephalopathy- DS pg.1 88 years old- H and P pg.1 Dementia- DS pg.1 TREATMENTS Broad spectrum antibiotics- DS pg.2 IV fluids- MAR Urine culture- Microbiology (This form is maintained as a part of the permanent medical record) 2014 [employer]. All Rights Reserved Kelvin [email or web address]
--- NOTE | 2019-05-24 02:15 | PQF ---
[employer] Personal Coach Crystal Reports Winform Viewer AISHA,SERGEI PHAN MD [id number] [facility]264 [id number] CLINICAL DOCUMENTATION CLARIFICATION FORM: POST DISCHARGE Addendum to original discharge summary date: ____ Late entry note date: __ DATE: 05/24/19 ATTN: Sergei Singh Please exercise your independent, professional judgment in responding to the clarification form. Clinical indicators are provided on the bottom of this form for your review Please check appropriate box(s): [ x ] UTI please specify if due to or related to (as applicable): [ ] Indwelling catheter [ x ] Self-catheterization [ ] Suprapubic catheter [ ] Unable to determine etiology UTI Site: [ ] Kidney [ ] Ureter [ ] Bladder [ ] Urethra [ x ] Unable to determine Specify Organism (if known): [ ] Unknown organism [ ] Other diagnosis [ ] Unable to determine In addition, please specify: Present on Admission (POA): [ x ] Yes [ ] No [ ] Unable to determine For continuity of documentation, please document condition throughout progress notes and discharge summary. Thank You. CLINICAL INDICATORS - SIGNS / SYMPTOMS / LABS DS pg.2- Initial work up revealed UTI with Sepsis DS pg.1- Urine culture grew E.coli, resistant to Ampicillin DS pg.1- doing straight catheterization 4 times daily prior arrival H and P pg.1- altered mental status RISK FACTORS UTI- DS pg.1 Acute metabolic encephalopathy- DS pg.1 88 years old- H and P pg.1 Dementia- DS pg.1 TREATMENT: Broad spectrum antibiotics IV fluids- MAR Urine culture- Microbiology (This form is maintained as a part of the permanent medical record) 2014 [employer]. All Rights Reserved Kelvin REGGIE
== END 2019-05-23 18:02 | DRG 698 ==
LOC: ERS 16:40 → 2NO 22:10 → T4-B 05-20 15:44
PROVIDERS: ADMIT Internal Medicine; ATTEND Internal Medicine
DX: T83.511A Infection and inflammatory reaction due to indwelling urethral catheter, initial encounter (principal); G93.41 Metabolic encephalopathy; A41.51 Sepsis due to Escherichia coli [E. coli]; N30.00 Acute cystitis without hematuria; Z16.11 Resistance to penicillins; F05 Delirium due to known physiological condition; N40.1 Benign prostatic hyperplasia with lower urinary tract symptoms; R33.8 Other retention of urine; I10 Essential (primary) hypertension; D75.89 Other specified diseases of blood and blood-forming organs; F03.90 Unspecified dementia, unspecified severity, without behavioral disturbance, psychotic disturbance, mood disturbance, and anxiety; F31.9 Bipolar disorder, unspecified; I48.91 Unspecified atrial fibrillation; J44.9 Chronic obstructive pulmonary disease, unspecified; F51.04 Psychophysiologic insomnia
CPT/HCPCS: 36415; 51701; 70450; 71045; 80048; 80053; 80178; 81003; 81015; 82306; 82550; 82607; 82746; 83605; 83735; 83880; 84443; 84484; 85025; 85610; 85730; 87077; 87086; 87186; 93005; 94640; 94760; 96365; J0696; J1650; J2270; J3490; J7620; J7626

== ENCOUNTER 2020-03-12 12:38 | Inpatient (IN) | payer MEDICARE ==
[2020-03-12 13:52] LABS: Hemoglobin 11.4 g/dL (14.0-18.0); Mean Corpuscular HGB CONC 32.8 g/dL (32.0-36.0); Mean Corpuscular Hemoglobin 33.2 pg (27.0-31.0); Mean Platelet Volume 9.3 fL (7.4-10.4); Platelet Count 180 thou/uL (130-400); RBC Distribution Width 12.3 % (11.5-14.5); Red Blood Cell (RBC) Count 3.45 mill/uL (4.70-6.10); White Blood Cell (WBC) Count 13.8 thou/uL (4.8-10.8)
--- NOTE | 2020-03-12 14:15 | RAD ---
XR Chest 1 View Portable HISTORY: Dyspnea COMPARISON: 05/17/2019 FINDINGS: The heart is enlarged. The aorta is tortuous. There is patchy opacity in the peripheral lef t lower lung. No pneumothoraces or large effusions are seen. IMPRESSION: Findings are suspicious for pneumonia. A follow-up exam should be obtained after course of antibiotics.
[2020-03-12 14:36] LABS: Bilirubin Negative (Negative); Blood, Urine 1+ (Negative); Clarity Turbid (Clear); Glucose, Urine (Dipstick) Normal (Negative); Ketone, Urine Negative (Negative); Leukocyte 500 Leu/uL (Negative); Nitrite Negative (Negative); Protein, Urine (Dipstick) 100 mg/dL (Neg-Trace); RBC/HPF 0-3 HPF (0-3); Squamous Epithelial None Seen HPF (0-3); Urobilinogen Normal mg/dL (Less than 2); WBC/HPF Greater than 50 HPF (0-3); pH, Urine 5.5 (5.0-9.0)
[2020-03-12 14:39] LABS: ALT (SGPT) 12 U/L (8-55); AST (SGOT) 14 U/L (5-34); Albumin 3.3 g/dL (3.4-4.8); Alkaline Phosphatase 72 U/L (40-110); Anion Gap 17 mmol/L (10-20); BUN (Urea Nitrogen) 25 mg/dL (8.4-25.7); Bilirubin, Total 0.6 mg/dL (0.2-1.2); Calc. Creatinine Clearance 0 mL/min (70-130); Calcium 9.2 mg/dL (7.8-10.44); Carbon Dioxide 22 mmol/L (23-31); Chloride 100 mmol/L (98-107); Globulin 2.9 g/dL (2.4-3.5); Glucose 130 mg/dL (83-110); Potassium 4.4 mmol/L (3.5-5.1); Protein, Total 6.2 g/dL (5.8-8.1); Sodium 135 mmol/L (136-145)
[2020-03-12] MEDS ORDERED: cefTRIAXone\\ROCEPHIN 1 GM VIAL ONE (14:39)
[2020-03-12 14:44] LABS: Bacteria/HPF 1+ HPF (None Seen)
[2020-03-12] MEDS ORDERED: Albuterol 200 PUFF (6.7GM INHALER) ONE (14:54)
[2020-03-12] MEDS ORDERED: Dexamethasone 10 MG/ML VIAL ONE (14:54)
[2020-03-12 14:55] LABS: Band 20 % (5-11); Lymphocytes 2 % (21-51); MDiff Complete? YES; Macrocytosis SLIGHT = 6-15 cells (100X) (0-5/hpf); Monocytes 12 % (0-10); Neutrophil 64 % (42-75); Platelet Morphology Comment Appears Adequate; Polychromasia SLIGHT = 2-3 cells (100X) (0-2/hpf); Reactive Lymphocytes 2 % (0-10)
--- NOTE | 2020-03-12 15:11 | PDOC.HHP ---
Hospitalist HPI - History of Present Illness Pneumonia and UTI History of Present Illness: 89-year-old male who was brought to emergency room for increasing shortness of breath, in the emergency room patient was appeared confused and he was poor historian, he was not able to provide good history, in emergency room he was tachypneic and relatively hypoxic, his chest x-ray showed left lower lobe pneumonia, his urine analysis was also consistent with UTI, patient is being admitted for pneumonia and UTI treatment. ED Course: And is given Rocephin and azithromycin as well as patient is given 1 L of IV fluid Hospitalist ROS - Review of Systems ROS unobtainable: due to mental status Hospitalist History - Past Medical History Other Medical History: Atrial fibrillation Hypertension Osteoarthritis COPD - Past Surgical History Other Surgical History: Hip surgery Past psychiatric history anxiety and depression - Family History Other Family History: No strong family history of premature coronary artery disease stroke or cancer - Social History Other Social History: No history of tobacco alcohol or illicit drug abuse - Exam General Appearance: NAD, awake alert Eye: PERRL, anicteric sclera ENT: normocephalic atraumatic, no oropharyngeal lesions Neck: supple, symmetric, no JVD Heart: RRR, no murmur, no gallops, no rubs Respiratory: no wheezes, rales Respiratory - other findings: Left basal rales Gastrointestinal: soft, non-tender, non-distended, normal bowel sounds Extremities: no cyanosis, no clubbing, no edema Skin: normal turgor, no lesions Neurological: no focal deficits Musculoskeletal: normal tone, normal strength Psychiatric: normal affect, normal behavior Hospitalist Results - Labs Result Diagrams: 03/12/20 13:37 03/12/20 13:37 Lab results: WBC 13.8 thou/uL (4.8-10.8) H 03/12/20 13:37 Hgb 11.4 g/dL (14.0-18.0) L 03/12/20 13:37 Hct 34.9 % (42.0-52.0) L 03/12/20 13:37 MCV 101.0 fL (78.0-98.0) H 03/12/20 13:37 Plt Count 180 thou/uL (130-400) 03/12/20 13:37 Band Neuts % (Manual) 20 % (5-11) H 03/12/20 13:37 Sodium 135 mmol/L (136-145) L 03/12/20 13:37 Potassium 4.4 mmol/L (3.5-5.1) 03/12/20 13:37 Chloride 100 mmol/L (98-107) 03/12/20 13:37 Carbon Dioxide 22 mmol/L (23-31) L 03/12/20 13:37 BUN 25 mg/dL (8.4-25.7) 03/12/20 13:37 Creatinine 1.33 mg/dL (0.7-1.3) H 03/12/20 13:37 Glucose 130 mg/dL (83-110) H 03/12/20 13:37 Lactic Acid 1.3 mmol/L (0.5-2.2) 03/12/20 13:37 Calcium 9.2 mg/dL (7.8-10.44) 03/12/20 13:37 Total Bilirubin 0.6 mg/dL (0.2-1.2) 03/12/20 13:37 AST 14 U/L (5-34) 03/12/20 13:37 ALT 12 U/L (8-55) 03/12/20 13:37 Alkaline Phosphatase 72 U/L (40-110) 03/12/20 13:37 Troponin I 0.027 ng/mL (< 0.028) 03/12/20 13:37 B-Natriuretic Peptide 309.3 pg/mL (0-100) H 03/12/20 13:37 Serum Total Protein 6.2 g/dL (5.8-8.1) 03/12/20 13:37 Albumin 3.3 g/dL (3.4-4.8) L 03/12/20 13:37 Urine Ketones Negative mg/dL (Negative) 03/12/20 13:59 Urine Blood 1+ (Negative) A 03/12/20 13:59 Urine Nitrite Negative (Negative) 03/12/20 13:59 Ur Leukocyte Esterase 500 Rupa/uL (Negative) A 03/12/20 13:59 Urine RBC 0-3 HPF (0-3) 03/12/20 13:59 Urine WBC Greater than 50 HPF (0-3) A 03/12/20 13:59 Ur Squamous Epith Cells None Seen HPF (0-3) 03/12/20 13:59 Urine Bacteria 1+ HPF (None Seen) A 03/12/20 13:59 - EKG Interpretation EKG: Rate of 60 sinus rhythm borderline first-degree AV block. Normal axis. QRS wi dening at 148 ms. Nonspecific fascicular block. No acute left bundle branch block. Nonspecific ST changes. No ST segment elevation. - Radiology Interpretation Chest x-ray Status: image reviewed by me Additional Comment: HISTORY: Dyspnea COMPARISON: 05/17/2019 FINDINGS: The heart is enlarged. The aorta is tortuous. There is patchy opacity in the peripheral lef t lower lung. No pneumothoraces or large effusions are seen. IMPRESSION: Findings are suspicious for pneumonia. A follow-up exam should be obtained after course of antibiotics. Hospitalist H&P A/P - Problem (1) Left lower lobe pneumonia Code(s): J18.9 - PNEUMONIA, UNSPECIFIED ORGANISM Status: Acute Qualifiers: Pneumonia type: due to unspecified organism Qualified Code(s): J18.9 - Pneumonia, unspecified organism (2) UTI (urinary tract infection) Status: Acute Qualifiers: Urinary tract infection type: acute cystitis Hematuria presence: without hematuria Qualified Code(s): N30.00 - Acute cystitis without hematuria (3) BPH (benign prostatic hyperplasia) Code(s): N40.0 - BENIGN PROSTATIC HYPERPLASIA WITHOUT LOWER URINRY TRACT SYMP Status: Chronic Qualifiers: Lower urinary tract symptom presence: symptoms present Lower urinary tract symptom detail: urinary retention Qualified Code(s): N40.1 - Benign prostatic hyperplasia with lower urinary tract symptoms; R33.8 - Other retention of urine (4) Dementia Code(s): F03.90 - UNSPECIFIED DEMENTIA WITHOUT BEHAVIORAL DISTURBANCE Status: Chronic Qualifiers: Dementia type: Alzheimer's disease (5) HTN (hypertension) Code(s): I10 - ESSENTIAL (PRIMARY) HYPERTENSION Status: Chronic Qualifiers: Hypertension type: essential hypertension Qualified Code(s): I10 - Essential (primary) hypertension (6) Macrocytosis without anemia Code(s): D75.89 - OTHER SPECIFIED DISEASES OF BLOOD AND BLOOD-FORMING ORGANS Status: Chronic (7) Mood disorder Code(s): F39 - UNSPECIFIED MOOD [AFFECTIVE] DISORDER Status: Chronic (8) COPD (chronic obstructive pulmonary disease) Status: Chronic Qualifiers: Chronic bronchitis type: unspecified - Plan Plan: Plan Admit to medical floor Continue Rocephin and azithromycin Follow-up on culture result and change to oral antibiotic accordingly His home medication will be reconciled DVT prophylaxis Lovenox 40 mg subcu daily GI prophylaxis Pepcid 20 mg twice daily CODE STATUS patient is full code Disposition plan based on clinical course
[2020-03-12 15:27] LABS: SARS-CoV-2 NAA Rapid Test Not Detected (NotDetected)
[2020-03-12] MEDS ORDERED: Azithromycin 500 MG VIAL ONE (15:48)
[2020-03-12] MEDS ORDERED: Metoclopramide HCl 10 MG/2 ML VIAL IVP PRN (20:04)
[2020-03-12] MEDS ORDERED: Senokot S 8.6-50 MG TAB PO PRN (20:04)
[2020-03-12] MEDS ORDERED: Loperamide HCl 2 MG CAP PO PRN (20:04)
[2020-03-12] MEDS ORDERED: Bisacodyl 10 MG SUPP PR PRN (20:04)
[2020-03-12] MEDS ORDERED: Sodium Chloride 0.65% Nasal 44 ML BOT EA NARE PRN (20:04)
[2020-03-12] MEDS ORDERED: Cepastat Lozenges 1 LOZ PO PRN (20:04)
[2020-03-12] MEDS ORDERED: Diabetic Tussin 200 MG/10 ML UDCUP PO PRN (20:04)
[2020-03-12] MEDS ORDERED: Calcium Carbonate 500 MG ChewTAB PO PRN (20:04)
[2020-03-12] MEDS ORDERED: hydrALAZINE 20 MG/ML VIAL SLOW IVP PRN (20:04)
[2020-03-12] MEDS ORDERED: Budesonide 0.5 MG/2 ML NEB NEB SCH (20:45)
[2020-03-12] MEDS: Famotidine 20 MG TAB PO SCH (20:59)
[2020-03-12] MEDS: Benzonatate 100 MG CAP PO PRN (20:59)
[2020-03-12] MEDS: Finasteride 5 MG TAB PO SCH (20:59)
[2020-03-12] MEDS: risperiDONE 1 MG TAB PO SCH (21:00)
[2020-03-12] MEDS: Acetaminophen 325 MG TAB PO PRN (21:00)
[2020-03-12] MEDS: traMADol HCl 50 MG TAB PO PRN (21:00)
[2020-03-12 22:47] VITALS: BMI 26.1
[2020-03-12] MEDS: Budesonide 0.5 MG/2 ML NEB NEB SCH (23:27)
[2020-03-13 06:31] LABS: #Basophils 0.1 thou/uL (0.0-0.2); #Lymphocytes 0.4 thou/uL (1.20-3.40); #Monocytes 0.6 thou/uL (0.11-0.59); #Neutrophils 10.2 thou/uL (1.40-6.50); %Basophils 0.7 % (0.0-1.0); %Lymphocytes 3.9 % (21.0-51.0); %Monocytes 4.9 % (0.0-10.0); %Neutrophils 90.5 % (42.0-75.0); Hemoglobin 10.7 g/dL (14.0-18.0); Mean Corpuscular Hemoglobin 32.1 pg (27.0-31.0); Mean Platelet Volume 8.5 fL (7.4-10.4); Platelet Count 191 thou/uL (130-400); RBC Distribution Width 12.3 % (11.5-14.5); Red Blood Cell (RBC) Count 3.34 mill/uL (4.70-6.10); White Blood Cell (WBC) Count 11.3 thou/uL (4.8-10.8)
[2020-03-13] MEDS: Budesonide 0.5 MG/2 ML NEB NEB SCH ×2 (06:40→19:39)
[2020-03-13 06:50] LABS: Anion Gap 14 mmol/L (10-20); BUN (Urea Nitrogen) 30 mg/dL (8.4-25.7); Calc. Creatinine Clearance 60 mL/min (70-130); Calcium 9.1 mg/dL (7.8-10.44); Carbon Dioxide 25 mmol/L (23-31); Chloride 102 mmol/L (98-107); Glucose 209 mg/dL (83-110); Potassium 4.1 mmol/L (3.5-5.1); Sodium 137 mmol/L (136-145)
[2020-03-13] MEDS: Cyanocobalamin (Vitamin B-12) 1,000 MCG TAB PO SCH (10:13)
[2020-03-13] MEDS: Lisinopril 20 MG TAB PO SCH (10:13)
[2020-03-13] MEDS: Amlodipine 10 MG TAB PO SCH (10:14)
[2020-03-13] MEDS: Atenolol 25 MG TAB PO SCH (10:14)
[2020-03-13] MEDS: Folic Acid 1 MG TAB PO SCH (10:14)
[2020-03-13] MEDS: Famotidine 20 MG TAB PO SCH ×2 (10:14→19:50)
[2020-03-13] MEDS: Saccharomyces boulardii 250 MG CAP PO SCH (10:14)
[2020-03-13] MEDS: Tamsulosin HCl 0.4 MG CAP PO SCH (10:14)
[2020-03-13] MEDS: Enoxaparin Sodium 40 MG/0.4 ML SYRINGE SC SCH (10:15)
--- NOTE | 2020-03-13 10:23 | PDOC.HOSPP ---
- Subjective Encounter Date: 03/13/20 Encounter Time: 10:17 Subjective: much better, less sob, still coughing - Objective Vital Signs & Weight: Vital Signs (12 hours) Temp Pulse Resp BP BP Pulse Ox 03/13/20 10:14 74 156/65 H 03/13/20 10:13 156/65 H 03/13/20 07:38 74 20 156/65 H 96 03/13/20 06:40 72 22 H 91 L 03/13/20 03:28 97.5 F L 79 17 137/77 96 03/12/20 23:29 98.2 F 74 17 128/62 96 03/12/20 23:26 96 Weight Weight 220 lb I&O: 03/12/20 03/13/20 03/14/20 06:59 06:59 06:59 Intake Total 500 Balance 500 Result Diagrams: 03/13/20 06:20 03/13/20 06:20 Hospitalist ROS - Medication Medications: Active Medications Generic Name Dose Route Start Last Admin Trade Name Freq PRN Reason Stop Dose Admin Acetaminophen 650 mg 03/12/20 20:04 03/12/20 21:00 Acetaminophen 325 Mg Tab PO 650 mg Q4H PRN Administration Headache/Fever/Mild Pain (1-3) Albuterol/Ipratropium 3 ml 03/13/20 07:00 03/13/20 06:43 Ipratropium/Albuterol Sulfate 3 Ml Neb NEB 3 ml QID-RT AMANDA Administration Amlodipine Besylate 10 mg 03/13/20 09:00 03/13/20 10:14 Amlodipine 10 Mg Tab PO 10 mg DAILY AMANDA Administration Atenolol 25 mg 03/13/20 09:00 03/13/20 10:14 Atenolol 25 Mg Tab PO 25 mg DAILY AMANDA Administration Benzonatate 100 mg 03/12/20 20:04 03/12/20 20:59 Benzonatate 100 Mg Cap PO 100 mg Q6H PRN Administration Cough Budesonide 0.5 mg 03/13/20 06:30 03/13/20 06:40 Budesonide 0.5 Mg/2 Ml Neb NEB 0.5 mg BID-RT AMANDA Administration Cyanocobalamin 1,000 mcg 03/13/20 09:00 03/13/20 10:13 Cyanocobalamin (Vitamin B-12) 1,000 Mcg Tab PO 1,000 mcg DAILY AMANDA Administration Enoxaparin Sodium 40 mg 03/13/20 09:00 03/13/20 10:15 Enoxaparin Sodium 40 Mg/0.4 Ml Syringe SC 40 mg 0900 AMANDA Administration Famotidine 20 mg 03/12/20 21:00 03/13/20 10:14 Famotidine 20 Mg Tab PO 20 mg BID AMANDA Administration Finasteride 5 mg 03/12/20 21:00 03/12/20 20:59 Finasteride 5 Mg Tab PO 5 mg HS AMANDA Administration Folic Acid 1 mg 03/13/20 09:00 03/13/20 10:14 Folic Acid 1 Mg Tab PO 1 mg DAILY AMANDA Administration Lisinopril 40 mg 03/13/20 09:00 03/13/20 10:13 Lisinopril 20 Mg Tab PO 40 mg DAILY AMANDA Administration [place] Carbonate 300 mg 03/12/20 21:00 03/12/20 20:59 [place] Carbonate Er 300 Mg Tablet PO 300 mg BID AMANDA Administration Risperidone 1 mg 03/12/20 21:00 03/12/20 21:00 Risperidone 1 Mg Tab PO 1 mg HS AMANDA Administration Saccharomyces Boulardii 250 mg 03/13/20 09:00 03/13/20 10:14 Saccharomyces Boulardii 250 Mg Cap PO 250 mg DAILY AMANDA Administration Tamsulosin HCl 0.4 mg 03/13/20 09:00 03/13/20 10:14 Tamsulosin Hcl 0.4 Mg Cap PO 0.4 mg DAILY AMANDA Administration Tramadol HCl 50 mg 03/12/20 20:04 03/12/20 21:00 Tramadol Hcl 50 Mg Tab PO 50 mg QID PRN Administration Pain - Exam General Appearance: awake alert Neck: no JVD Heart: RRR, no murmur Respiratory - other findings: rales LLL, otherwise clear Hosp A/P (1) Left lower lobe pneumonia Code(s): J18.9 - PNEUMONIA, UNSPECIFIED ORGANISM Status: Acute Qualifiers: Pneumonia type: due to Escherichia coli Qualified Code(s): J15.5 - Pneumonia due to Escherichia coli (2) COPD (chronic obstructive pulmonary disease) Status: Chronic Qualifiers: Chronic bronchitis type: unspecified (3) Acute metabolic encephalopathy Code(s): G93.41 - METABOLIC ENCEPHALOPATHY Status: Acute (4) UTI (urinary tract infection) Status: Acute Qualifiers: Urinary tract infection type: acute cystitis Hematuria presence: without hematuria Qualified Code(s): N30.00 - Acute cystitis without hematuria (5) BPH (benign prostatic hyperplasia) Code(s): N40.0 - BENIGN PROSTATIC HYPERPLASIA WITHOUT LOWER URINRY TRACT SYMP Status: Chronic Qualifiers: Lower urinary tract symptom presence: symptoms present Lower urinary tract symptom detail: urinary retention Qualified Code(s): N40.1 - Benign prostatic hyperplasia with lower urinary tract symptoms; R33.8 - Other retention of urine (6) Dementia Code(s): F03.90 - UNSPECIFIED DEMENTIA WITHOUT BEHAVIORAL DISTURBANCE Status: Chronic Qualifiers: Dementia type: Alzheimer's disease (7) HTN (hypertension) Code(s): I10 - ESSENTIAL (PRIMARY) HYPERTENSION Status: Chronic Qualifiers: Hypertension type: essential hypertension Qualified Code(s): I10 - Essential (primary) hypertension (8) Bacteremia Code(s): R78.81 - BACTEREMIA Status: Acute - Plan uti with bacteremia, sensitivities pending will consider PNA likely gm neg also; however could be pneumococcus, etc. since he is improved, no change in antibx pending cultures
[2020-03-13] MEDS: Benzonatate 100 MG CAP PO PRN (13:31)
[2020-03-13] MEDS: cefTRIAXone\\ROCEPHIN 1 GM in Sodium Chloride 0.9% 100 ML IVPB SCH (16:19)
[2020-03-13] MEDS: Azithromycin 500 MG in Sodium Chloride 0.9% 250 ML 250 ML IVPB SCH (17:06)
[2020-03-13] MEDS: Finasteride 5 MG TAB PO SCH (19:51)
[2020-03-13] MEDS: Loratadine 10 MG TAB PO PRN (19:51)
[2020-03-13] MEDS: Acetaminophen 325 MG TAB PO PRN (19:51)
[2020-03-13] MEDS: traMADol HCl 50 MG TAB PO PRN (19:51)
[2020-03-13] MEDS: risperiDONE 1 MG TAB PO SCH (21:26)
[2020-03-14] MEDS: HYDROcodone/Acetaminophen 5/325 mg Tablet PO PRN ×2 (03:46→23:27)
--- NOTE | 2020-03-14 07:32 | PDOC.HOSPP ---
- Subjective Encounter Date: 03/14/20 Encounter Time: 09:00 Subjective: Patient without complaints. Very confused. states he gets this way when he has an infection, but usually oriented at home. - Objective Vital Signs & Weight: Vital Signs (12 hours) Temp Pulse Resp BP Pulse Ox 03/14/20 07:12 97.8 F 98 20 173/79 H 93 L 03/14/20 04:00 97.6 F 85 22 H 130/71 97 03/13/20 20:00 96 03/13/20 19:57 67 16 147/73 H 96 Weight Weight 220 lb I&O: 03/13/20 03/14/20 03/15/20 06:59 06:59 06:59 Intake Total 500 1450 Output Total 1150 Balance 500 300 Result Diagrams: 03/13/20 06:20 03/13/20 06:20 Hospitalist ROS - Review of Systems ROS unobtainable: due to mental status - Medication Medications: Active Medications Generic Name Dose Route Start Last Admin Trade Name Freq PRN Reason Stop Dose Admin Acetaminophen 650 mg 03/12/20 20:04 03/13/20 19:51 Acetaminophen 325 Mg Tab PO 650 mg Q4H PRN Administration Headache/Fever/Mild Pain (1-3) Hydrocodone Bitart/Acetaminophen 1 tab 03/12/20 20:04 03/14/20 03:46 Hydrocodone/Acetaminophen 5/325 Mg Tablet PO 1 tab Q4H PRN Administration Moderate Pain (4-6) Albuterol/Ipratropium 3 ml 03/13/20 07:00 03/13/20 19:39 Ipratropium/Albuterol Sulfate 3 Ml Neb NEB Not Given QID-RT AMANDA Amlodipine Besylate 10 mg 03/13/20 09:00 03/13/20 10:14 Amlodipine 10 Mg Tab PO 10 mg DAILY AMANDA Administration Atenolol 25 mg 03/13/20 09:00 03/13/20 10:14 Atenolol 25 Mg Tab PO 25 mg DAILY AMANDA Administration Benzonatate 100 mg 03/12/20 20:04 03/13/20 13:31 Benzonatate 100 Mg Cap PO 100 mg Q6H PRN Administration Cough Budesonide 0.5 mg 03/13/20 06:30 03/13/20 19:39 Budesonide 0.5 Mg/2 Ml Neb NEB Not Given BID-RT AMANDA Cyanocobalamin 1,000 mcg 03/13/20 09:00 03/13/20 10:13 Cyanocobalamin (Vitamin B-12) 1,000 Mcg Tab PO 1,000 mcg DAILY AMANDA Administration Enoxaparin Sodium 40 mg 03/13/20 09:00 03/13/20 10:15 Enoxaparin Sodium 40 Mg/0.4 Ml Syringe SC 40 mg 0900 AMANDA Administration Famotidine 20 mg 03/12/20 21:00 03/13/20 19:50 Famotidine 20 Mg Tab PO 20 mg BID AMANDA Administration Finasteride 5 mg 03/12/20 21:00 03/13/20 19:51 Finasteride 5 Mg Tab PO 5 mg HS AMANDA Administration Folic Acid 1 mg 03/13/20 09:00 03/13/20 10:14 Folic Acid 1 Mg Tab PO 1 mg DAILY AMANDA Administration Guaifenesin 200 mg 03/12/20 20:04 03/13/20 19:51 Diabetic Tussin 200 Mg/10 Ml Udcup PO 200 mg Q4H PRN Administration Cough Ceftriaxone Sodium 1 gm/ 100 mls @ 200 mls/hr 03/13/20 15:00 03/13/20 16:19 Sodium Chloride IVPB 100 mls 1500 AMANDA Administration Azithromycin 500 mg/ Sodium 250 mls @ 250 mls/hr 03/13/20 16:00 03/13/20 17:06 Chloride IVPB 250 mls 1600 AMANDA Administration Lisinopril 40 mg 03/13/20 09:00 03/13/20 10:13 Lisinopril 20 Mg Tab PO 40 mg DAILY AMANDA Administration [place] Carbonate 300 mg 03/12/20 21:00 03/13/20 21:26 [place] Carbonate Er 300 Mg Tablet PO 300 mg BID AMANDA Administration Loratadine 10 mg 03/12/20 20:04 03/13/20 19:51 Loratadine 10 Mg Tab PO 10 mg DAILYPRN PRN Administration Sinus Symptoms Risperidone 1 mg 03/12/20 21:00 03/13/20 21:26 Risperidone 1 Mg Tab PO 1 mg HS AMANDA Administration Saccharomyces Boulardii 250 mg 03/13/20 09:00 03/13/20 10:14 Saccharomyces Boulardii 250 Mg Cap PO 250 mg DAILY AMANDA Administration Tamsulosin HCl 0.4 mg 03/13/20 09:00 03/13/20 10:14 Tamsulosin Hcl 0.4 Mg Cap PO 0.4 mg DAILY AMANDA Administration Tramadol HCl 50 mg 03/12/20 20:04 03/13/20 19:51 Tramadol Hcl 50 Mg Tab PO 50 mg QID PRN Administration Pain - Exam General Appearance: NAD, awake alert ENT: moist mucosa Heart: RRR, no murmur, no gallops, no rubs Respiratory: no wheezes, no rales, no ronchi, no tachypnea Respiratory - other findings: decreased breath sounds in bases Gastrointestinal: soft, non-tender, non-distended, normal bowel sounds Extremities: no edema Psychiatric: normal affect, normal behavior, oriented to person. negative: oriented to place, oriented to time Hosp A/P - Plan (1) Left lower lobe pneumonia Code(s): J18.9 - PNEUMONIA, UNSPECIFIED ORGANISM Status: Acute Qualifiers: Pneumonia type: due to Escherichia coli Qualified Code(s): J15.5 - Pneumonia due to Escherichia coli (2) COPD (chronic obstructive pulmonary disease) Status: Chronic Qualifiers: Chronic bronchitis type: unspecified (3) Acute metabolic encephalopathy Code(s): G93.41 - METABOLIC ENCEPHALOPATHY Status: Acute (4) UTI (urinary tract infection) Status: Acute Qualifiers: Urinary tract infection type: acute cystitis Hematuria presence: without hematuria Qualified Code(s): N30.00 - Acute cystitis without hematuria (5) BPH (benign prostatic hyperplasia) Code(s): N40.0 - BENIGN PROSTATIC HYPERPLASIA WITHOUT LOWER URINRY TRACT SYMP Status: Chronic Qualifiers: Lower urinary tract symptom presence: symptoms present Lower urinary tract symptom detail: urinary retention Qualified Code(s): N40.1 - Benign prostatic hyperplasia with lower urinary tract symptoms; R33.8 - Other retention of urine (6) Dementia Code(s): F03.90 - UNSPECIFIED DEMENTIA WITHOUT BEHAVIORAL DISTURBANCE Status: Chronic Qualifiers: Dementia type: Alzheimer's disease (7) HTN (hypertension) Code(s): I10 - ESSENTIAL (PRIMARY) HYPERTENSION Status: Chronic Qualifiers: Hypertension type: essential hypertension Qualified Code(s): I10 - [place] l (primary) hypertension (8) Bacteremia Code(s): R78.81 - BACTEREMIA Status: Acute On Rocephin and Azithromycin since 02/11/2020 On 2L NC O2 updated on patient's progress, likely a couple more days in the hospital. DVT Proph: Lovenox GI Proph: Pepcid
[2020-03-14] MEDS: Budesonide 0.5 MG/2 ML NEB NEB SCH ×2 (09:05→21:38)
[2020-03-14] MEDS: Atenolol 25 MG TAB PO SCH (09:25)
[2020-03-14] MEDS: Enoxaparin Sodium 40 MG/0.4 ML SYRINGE SC SCH (09:25)
[2020-03-14] MEDS: Saccharomyces boulardii 250 MG CAP PO SCH (09:25)
[2020-03-14] MEDS: Lisinopril 20 MG TAB PO SCH (09:25)
[2020-03-14] MEDS: Famotidine 20 MG TAB PO SCH ×2 (09:26→20:17)
[2020-03-14] MEDS: Amlodipine 10 MG TAB PO SCH (09:27)
[2020-03-14] MEDS: Tamsulosin HCl 0.4 MG CAP PO SCH (09:27)
[2020-03-14] MEDS: Folic Acid 1 MG TAB PO SCH (09:27)
[2020-03-14] MEDS: Cyanocobalamin (Vitamin B-12) 1,000 MCG TAB PO SCH (09:27)
[2020-03-14] MEDS: cefTRIAXone\\ROCEPHIN 1 GM in Sodium Chloride 0.9% 100 ML IVPB SCH (14:39)
[2020-03-14] MEDS: Acetaminophen 325 MG TAB PO PRN (16:37)
[2020-03-14] MEDS: Azithromycin 500 MG in Sodium Chloride 0.9% 250 ML 250 ML IVPB SCH (16:53)
[2020-03-14] MEDS: Finasteride 5 MG TAB PO SCH (20:17)
[2020-03-14] MEDS: risperiDONE 1 MG TAB PO SCH (20:17)
[2020-03-15 06:18] LABS: #Eosinphils 0.1 thou/uL (0.0-0.7); #Neutrophils 10.4 thou/uL (1.40-6.50); %Basophils 0.2 % (0.0-1.0); %Eosinophils 1.2 % (0.0-10.0); %Lymphocytes 7.9 % (21.0-51.0); %Monocytes 7.9 % (0.0-10.0); %Neutrophils 82.8 % (42.0-75.0); Hemoglobin 11.8 g/dL (14.0-18.0); Mean Corpuscular HGB CONC 32.7 g/dL (32.0-36.0); Mean Platelet Volume 7.7 fL (7.4-10.4); Platelet Count 310 thou/uL (130-400); RBC Distribution Width 12.3 % (11.5-14.5); Red Blood Cell (RBC) Count 3.59 mill/uL (4.70-6.10); White Blood Cell (WBC) Count 12.6 thou/uL (4.8-10.8)
[2020-03-15 06:43] LABS: Anion Gap 16 mmol/L (10-20); BUN (Urea Nitrogen) 29 mg/dL (8.4-25.7); Calc. Creatinine Clearance 67 mL/min (70-130); Calcium 9.5 mg/dL (7.8-10.44); Carbon Dioxide 25 mmol/L (23-31); Chloride 104 mmol/L (98-107); Glucose 130 mg/dL (83-110); Potassium 3.8 mmol/L (3.5-5.1); Sodium 141 mmol/L (136-145)
[2020-03-15] MEDS: Budesonide 0.5 MG/2 ML NEB NEB SCH ×2 (07:19→19:18)
[2020-03-15] MEDS: traMADol HCl 50 MG TAB PO PRN (07:36)
[2020-03-15] MEDS: Saccharomyces boulardii 250 MG CAP PO SCH (07:38)
[2020-03-15] MEDS: Tamsulosin HCl 0.4 MG CAP PO SCH (07:38)
[2020-03-15] MEDS: Folic Acid 1 MG TAB PO SCH (07:38)
[2020-03-15] MEDS: Amlodipine 10 MG TAB PO SCH (07:40)
[2020-03-15] MEDS: Atenolol 25 MG TAB PO SCH (07:41)
[2020-03-15] MEDS: Cyanocobalamin (Vitamin B-12) 1,000 MCG TAB PO SCH (07:41)
[2020-03-15] MEDS: Enoxaparin Sodium 40 MG/0.4 ML SYRINGE SC SCH (07:42)
[2020-03-15] MEDS: Lisinopril 20 MG TAB PO SCH (07:42)
[2020-03-15] MEDS: Famotidine 20 MG TAB PO SCH ×2 (08:46→20:35)
--- NOTE | 2020-03-15 13:38 | PQF ---
CLINICAL DOCUMENTATION CLARIFICATION FORM: Dear Dr. Porter Date: 03/15/20 Please exercise your independent, professional judgment in responding to the clarification form. Clinical indicators are provided on the bottom of this form for your review. Please check appropriate box(es): [ X ] Sepsis due to: Pneumonia and UTI [ ] Severe sepsis with associated acute organ dysfunction: [ ] Acute Respiratory Failure [ ] Acute Kidney injury w/o ATN [ ] Acute Kidney Injury w ATN [ ] Encephalopathy (metabolic) (septic) [ ] Disseminated Intravascular Coagulopathy (DIC) [ ] Hepatic Failure [ ] Additional/Other: please specify: [ ] Localized infection without sepsis [ ] SIRS due to non-infectious process (please specify etiology) [ ] with organ dysfunction [ ] without organ dysfunction [ ] Other diagnosis [ ] Unable to determine In addition, please specify: Present on Admission (POA): [ X ] Yes [ ] No [ ] Unable to determine For continuity of documentation, please document condition throughout progress notes and discharge summary. Thank You. To be completed by CDI/Coding staff for physician review: CLINICAL INDICATORS - SIGNS / SYMPTOMS / LABS / RESULTS AND LOCATION IN MR RR 30 WBC 03/12: 13.8 BANDS 03/12: 20 RISK FACTORS / RESULTS AND LOCATION IN MR PNEUMONIA (PN 03/14-LACEY) UTI (PN 03/14-LACEY) BACTEREMIA (ECOLI) (PN 03/14-LACEY) TREATMENTS / RESULTS AND LOCATION IN MR IV AZITHROMYCIN (ER-PRESENT) IV ROCEPHIN (ER-PRESENT) IV FLUIDS (ER) BLOOD & URINE CULTURES 03/12 CDS Signature: Ashley Solis RN Phone #: [phone] Date: 03/15/20 This is a permanent part of the Medical Record [facility]
[2020-03-15] MEDS: cefTRIAXone\\ROCEPHIN 1 GM in Sodium Chloride 0.9% 100 ML IVPB SCH (14:24)
[2020-03-15] MEDS: Azithromycin 500 MG in Sodium Chloride 0.9% 250 ML 250 ML IVPB SCH (15:07)
--- NOTE | 2020-03-15 16:21 | PDOC.HOSPP ---
- Subjective Encounter Date: 03/15/20 Subjective: Seen at bedside this morning during rounds. Resting in bed in no distress although he is confused and at time somewhat impulsive during exam. He was not able to provide any significant history. Being treated for possible UTI & PNA. - Objective Vital Signs & Weight: Vital Signs (12 hours) Temp Pulse Resp BP BP Pulse Ox 03/15/20 15:10 98.1 F 92 18 152/85 H 95 03/15/20 13:51 92 18 03/15/20 08:00 95 03/15/20 07:46 101 H 20 153/88 H 95 03/15/20 07:42 153/88 H 03/15/20 07:41 88 153/88 H 03/15/20 07:40 88 153/88 H 03/15/20 07:19 88 20 Weight Weight 220 lb I&O: 03/14/20 03/15/20 03/16/20 06:59 06:59 06:59 Intake Total 1450 Output Total 1150 Balance 300 Result Diagrams: 03/15/20 05:52 03/15/20 05:52 Hospitalist ROS - Review of Systems ROS unobtainable: due to mental status - Medication Medications: Active Medications Generic Name Dose Route Start Last Admin Trade Name Freq PRN Reason Stop Dose Admin Acetaminophen 650 mg 03/12/20 20:04 03/14/20 16:37 Acetaminophen 325 Mg Tab PO 650 mg Q4H PRN Administration Headache/Fever/Mild Pain (1-3) Hydrocodone Bitart/Acetaminophen 1 tab 03/12/20 20:04 03/14/20 23:27 Hydrocodone/Acetaminophen 5/325 Mg Tablet PO 1 tab Q4H PRN Administration Moderate Pain (4-6) Albuterol/Ipratropium 3 ml 03/13/20 07:00 03/15/20 13:51 Ipratropium/Albuterol Sulfate 3 Ml Neb NEB 3 ml QID-RT AMANDA Administration Amlodipine Besylate 10 mg 03/13/20 09:00 03/15/20 07:40 Amlodipine 10 Mg Tab PO 10 mg DAILY AMANDA Administration Atenolol 25 mg 03/13/20 09:00 03/15/20 07:41 Atenolol 25 Mg Tab PO 25 mg DAILY AMANDA Administration Benzonatate 100 mg 03/12/20 20:04 03/13/20 13:31 Benzonatate 100 Mg Cap PO 100 mg Q6H PRN Administration Cough Budesonide 0.5 mg 03/13/20 06:30 03/15/20 07:19 Budesonide 0.5 Mg/2 Ml Neb NEB 0.5 mg BID-RT AMANDA Administration Cyanocobalamin 1,000 mcg 03/13/20 09:00 03/15/20 07:41 Cyanocobalamin (Vitamin B-12) 1,000 Mcg Tab PO 1,000 mcg DAILY AMANDA Administration Enoxaparin Sodium 40 mg 03/13/20 09:00 03/15/20 07:42 Enoxaparin Sodium 40 Mg/0.4 Ml Syringe SC 40 mg 0900 AMANDA Administration Famotidine 20 mg 03/12/20 21:00 03/15/20 08:46 Famotidine 20 Mg Tab PO 20 mg BID AMANDA Administration Finasteride 5 mg 03/12/20 21:00 03/14/20 20:17 Finasteride 5 Mg Tab PO 5 mg HS AMANDA Administration Folic Acid 1 mg 03/13/20 09:00 03/15/20 07:38 Folic Acid 1 Mg Tab PO 1 mg DAILY AMANDA Administration Guaifenesin 200 mg 03/12/20 20:04 03/13/20 19:51 Diabetic Tussin 200 Mg/10 Ml Udcup PO 200 mg Q4H PRN Administration Cough Ceftriaxone Sodium 1 gm/ 100 mls @ 200 mls/hr 03/13/20 15:00 03/15/20 14:24 Sodium Chloride IVPB 100 mls 1500 AMANDA Administration Azithromycin 500 mg/ Sodium 250 mls @ 250 mls/hr 03/13/20 16:00 03/15/20 15:07 Chloride IVPB 250 mls 1600 AMANDA Administration Lisinopril 40 mg 03/13/20 09:00 03/15/20 07:42 Lisinopril 20 Mg Tab PO 40 mg DAILY AMANDA Administration [place] Carbonate 300 mg 03/12/20 21:00 03/15/20 08:45 [place] Carbonate Er 300 Mg Tablet PO 300 mg BID AMANDA Administration Loratadine 10 mg 03/12/20 20:04 03/13/20 19:51 Loratadine 10 Mg Tab PO 10 mg DAILYPRN PRN Administration Sinus Symptoms Risperidone 1 mg 03/12/20 21:00 03/14/20 20:17 Risperidone 1 Mg Tab PO 1 mg HS AMANDA Administration Saccharomyces Boulardii 250 mg 03/13/20 09:00 03/15/20 07:38 Saccharomyces Boulardii 250 Mg Cap PO 250 mg DAILY AMANDA Administration Tamsulosin HCl 0.4 mg 03/13/20 09:00 03/15/20 07:38 Tamsulosin Hcl 0.4 Mg Cap PO 0.4 mg DAILY AMANDA Administration Tramadol HCl 50 mg 03/12/20 20:04 03/15/20 07:36 Tramadol Hcl 50 Mg Tab PO 50 mg QID PRN Administration Pain - Exam General Appearance: ill appearing General - other findings: Confused and impulsive during exam Eye: PERRL ENT: normocephalic atraumatic Neck: supple, symmetric, no JVD Heart: RRR, no murmur, no gallops, no rubs, normal peripheral pulses Respiratory: CTAB, no wheezes, no rales, no ronchi, normal chest expansion, no tachypnea, normal percussion Gastrointestinal: soft, non-tender, non-distended, normal bowel sounds, no palpable masses, no hepatomegaly, no splenomegaly, no bruit Extremities: no cyanosis, no clubbing, no edema Neurological - other findings: No focal findings Musculoskeletal: normal tone, normal strength, no muscle wasting Hosp A/P - Plan old records reviewed/req A/P: Patient initially evaluated in ED for progressive shortness of breath and confusion found to have possible LL PNA & UTI. # Pneumonia: Possible LLL PNA. Current O2 requirements at 2L. No respiratory distress observed during exam. Blood cultures +'ve for E.coli and GPS. Continue with IV ABX Ceftriaxone + Azithromycin. # UTI: Possible UTI based on UA. Blood cultures +'ve for E.coli and GPS. Continue with IV ABX Ceftriaxone + Azithromycin. # Bacteremia: Gram negative due to E.coli. Suspecting urine as source. Pansensitive. Continue with IV Ceftriaxone. # COPD: History of COPD. Appears stable, not truly on exacerbation. Continue with inhalers and IV ABX for PNA. No need for steroids. # HTN: VS appear stable. Continue with current regimen. Monitor hemodynamics closely. # AMS: Confusion likely in setting of dementia with acute delirium due to above. Per family patient is usually oriented at baseline. Treat underlying causes per above plan. Avoid delirium triggers. DISPOSITION: Continue with IV ABX for treatment of PNA and possible UTI. Pending progression may require placement for rehab.
[2020-03-15] MEDS: risperiDONE 1 MG TAB PO SCH (20:35)
[2020-03-15] MEDS: Finasteride 5 MG TAB PO SCH (20:35)
[2020-03-15] MEDS: Acetaminophen 325 MG TAB PO PRN (20:40)
[2020-03-16] MEDS: Loratadine 10 MG TAB PO PRN (00:15)
[2020-03-16] MEDS: traMADol HCl 50 MG TAB PO PRN (00:15)
[2020-03-16 06:03] LABS: #Eosinphils 0.3 thou/uL (0.0-0.7); #Lymphocytes 1.4 thou/uL (1.20-3.40); #Monocytes 1.2 thou/uL (0.11-0.59); #Neutrophils 12.2 thou/uL (1.40-6.50); %Basophils 0.3 % (0.0-1.0); %Eosinophils 1.7 % (0.0-10.0); %Lymphocytes 9.3 % (21.0-51.0); %Monocytes 7.6 % (0.0-10.0); %Neutrophils 81.1 % (42.0-75.0); Mean Corpuscular HGB CONC 33.8 g/dL (32.0-36.0); Mean Corpuscular Hemoglobin 34.4 pg (27.0-31.0); Mean Platelet Volume 7.6 fL (7.4-10.4); Platelet Count 298 thou/uL (130-400); RBC Distribution Width 12.3 % (11.5-14.5); Red Blood Cell (RBC) Count 3.49 mill/uL (4.70-6.10)
[2020-03-16 06:27] LABS: Anion Gap 14 mmol/L (10-20); BUN (Urea Nitrogen) 30 mg/dL (8.4-25.7); Calc. Creatinine Clearance 65 mL/min (70-130); Calcium 9.4 mg/dL (7.8-10.44); Carbon Dioxide 26 mmol/L (23-31); Chloride 103 mmol/L (98-107); Glucose 129 mg/dL (83-110); Potassium 3.8 mmol/L (3.5-5.1); Sodium 139 mmol/L (136-145)
--- NOTE | 2020-03-16 07:47 | PDOC.HOSPP ---
- Subjective Encounter Date: 03/16/20 Subjective: Patient seen and examined at bedside. Being followed for possible PNA and UTI. Today patient is more away and interactive. He was able to answer some questions when yesterday he offered no information due to confusion. Today he is able to tell me his name and the town. - Objective Vital Signs & Weight: Vital Signs (12 hours) Temp Pulse Resp BP Pulse Ox 03/16/20 07:23 98.9 F 105 H 16 134/77 95 03/15/20 23:30 98.9 F 94 18 106/65 97 03/15/20 20:35 95 03/15/20 19:51 98.9 F 92 18 126/64 95 Weight Weight 220 lb I&O: 03/15/20 03/16/20 03/17/20 06:59 06:59 06:59 Intake Total 500 Balance 500 Result Diagrams: 03/16/20 05:33 03/16/20 05:33 Hospitalist ROS - Review of Systems ROS unobtainable: due to mental status (Very limited history but more awake and interactive) - Medication Medications: Active Medications Generic Name Dose Route Start Last Admin Trade Name Freq PRN Reason Stop Dose Admin Acetaminophen 650 mg 03/12/20 20:04 03/15/20 20:40 Acetaminophen 325 Mg Tab PO 650 mg Q4H PRN Administration Headache/Fever/Mild Pain (1-3) Hydrocodone Bitart/Acetaminophen 1 tab 03/12/20 20:04 03/14/20 23:27 Hydrocodone/Acetaminophen 5/325 Mg Tablet PO 1 tab Q4H PRN Administration Moderate Pain (4-6) Albuterol/Ipratropium 3 ml 03/13/20 07:00 03/15/20 19:18 Ipratropium/Albuterol Sulfate 3 Ml Neb NEB 3 ml QID-RT AMANDA Administration Amlodipine Besylate 10 mg 03/13/20 09:00 03/15/20 07:40 Amlodipine 10 Mg Tab PO 10 mg DAILY AMANDA Administration Atenolol 25 mg 03/13/20 09:00 03/15/20 07:41 Atenolol 25 Mg Tab PO 25 mg DAILY AMANDA Administration Benzonatate 100 mg 03/12/20 20:04 03/13/20 13:31 Benzonatate 100 Mg Cap PO 100 mg Q6H PRN Administration Cough Budesonide 0.5 mg 03/13/20 06:30 03/15/20 19:18 Budesonide 0.5 Mg/2 Ml Neb NEB 0.5 mg BID-RT AMANDA Administration Cyanocobalamin 1,000 mcg 03/13/20 09:00 03/15/20 07:41 Cyanocobalamin (Vitamin B-12) 1,000 Mcg Tab PO 1,000 mcg DAILY AMANDA Administration Enoxaparin Sodium 40 mg 03/13/20 09:00 03/15/20 07:42 Enoxaparin Sodium 40 Mg/0.4 Ml Syringe SC 40 mg 0900 AMANDA Administration Famotidine 20 mg 03/12/20 21:00 03/15/20 20:35 Famotidine 20 Mg Tab PO 20 mg BID AMANDA Administration Finasteride 5 mg 03/12/20 21:00 03/15/20 20:35 Finasteride 5 Mg Tab PO 5 mg HS AMANDA Administration Folic Acid 1 mg 03/13/20 09:00 03/15/20 07:38 Folic Acid 1 Mg Tab PO 1 mg DAILY AMANDA Administration Guaifenesin 200 mg 03/12/20 20:04 03/13/20 19:51 Diabetic Tussin 200 Mg/10 Ml Udcup PO 200 mg Q4H PRN Administration Cough Ceftriaxone Sodium 1 gm/ 100 mls @ 200 mls/hr 03/13/20 15:00 03/15/20 14:24 Sodium Chloride IVPB 100 mls 1500 AMANDA Administration Azithromycin 500 mg/ Sodium 250 mls @ 250 mls/hr 03/13/20 16:00 03/15/20 15:07 Chloride IVPB 250 mls 1600 AMANDA Administration Lisinopril 40 mg 03/13/20 09:00 03/15/20 07:42 Lisinopril 20 Mg Tab PO 40 mg DAILY AMANDA Administration [place] Carbonate 300 mg 03/12/20 21:00 03/15/20 20:35 [place] Carbonate Er 300 Mg Tablet PO 300 mg BID AMANDA Administration Loratadine 10 mg 03/12/20 20:04 03/16/20 00:15 Loratadine 10 Mg Tab PO 10 mg DAILYPRN PRN Administration Sinus Symptoms Risperidone 1 mg 03/12/20 21:00 03/15/20 20:35 Risperidone 1 Mg Tab PO 1 mg HS AMANDA Administration Saccharomyces Boulardii 250 mg 03/13/20 09:00 03/15/20 07:38 Saccharomyces Boulardii 250 Mg Cap PO 250 mg DAILY AMANDA Administration Tamsulosin HCl 0.4 mg 03/13/20 09:00 03/15/20 07:38 Tamsulosin Hcl 0.4 Mg Cap PO 0.4 mg DAILY AMANDA Administration Tramadol HCl 50 mg 03/12/20 20:04 03/16/20 00:15 Tramadol Hcl 50 Mg Tab PO 50 mg QID PRN Administration Pain - Exam General Appearance: NAD, awake alert Eye: PERRL, anicteric sclera Heart: RRR, no murmur, no gallops, no rubs, normal peripheral pulses Respiratory: CTAB, no wheezes, no rales, no ronchi, normal chest expansion, no tachypnea, normal percussion Gastrointestinal: soft, non-tender, non-distended, normal bowel sounds, no palpable masses, no hepatomegaly, no splenomegaly, no bruit Neurological - other findings: Moving all extremities, no focal findings, confused Musculoskeletal: normal tone, normal strength, no muscle wasting Psychiatric - other findings: More alert, able to answer some questions, remains confused Hosp A/P - Plan old records reviewed/req A/P: Patient initially evaluated in ED for progressive shortness of breath and confusion found to have possible LLL PNA & UTI. # Pneumonia: Possible LLL PNA. Current O2 requirements at 2L. No respiratory distress observed during exam. Blood cultures +'ve for E.coli and GPS. Continue with IV ABX Ceftriaxone + Azithromycin. # UTI: Possible UTI based on UA. Blood cultures +'ve for E.coli and GPS. Continue with IV ABX Ceftriaxone + Azithromycin. # Bacteremia: Gram negative due to E.coli. Suspecting urine as source. Pansensitive. Continue with IV Ceftriaxone. # COPD: History of COPD. Appears stable, not truly on exacerbation. Continue with inhalers and IV ABX for PNA. No need for steroids. # HTN: VS appear stable. Continue with current regimen. Monitor hemodynamics closely. # AMS: Confusion likely in setting of dementia with acute delirium due to above. Per family patient is usually oriented at baseline. Treat underlying causes per above plan. Avoid delirium triggers. DISPOSITION: Continue with IV ABX for treatment of PNA and possible UTI. Pending progression may require placement for rehab.
[2020-03-16] MEDS: Budesonide 0.5 MG/2 ML NEB NEB SCH ×2 (07:52→19:01)
[2020-03-16] MEDS: Atenolol 25 MG TAB PO SCH (08:08)
[2020-03-16] MEDS: Folic Acid 1 MG TAB PO SCH (08:09)
[2020-03-16] MEDS: Amlodipine 10 MG TAB PO SCH (08:09)
[2020-03-16] MEDS: Famotidine 20 MG TAB PO SCH ×2 (08:09→20:52)
[2020-03-16] MEDS: Tamsulosin HCl 0.4 MG CAP PO SCH (08:10)
[2020-03-16] MEDS: Cyanocobalamin (Vitamin B-12) 1,000 MCG TAB PO SCH (08:10)
[2020-03-16] MEDS: Lisinopril 20 MG TAB PO SCH (08:10)
[2020-03-16] MEDS: Saccharomyces boulardii 250 MG CAP PO SCH (08:16)
[2020-03-16] MEDS: Enoxaparin Sodium 40 MG/0.4 ML SYRINGE SC SCH (08:17)
[2020-03-16] MEDS: cefTRIAXone\\ROCEPHIN 1 GM in Sodium Chloride 0.9% 100 ML IVPB SCH (15:26)
[2020-03-16] MEDS: Azithromycin 500 MG in Sodium Chloride 0.9% 250 ML 250 ML IVPB SCH (16:27)
[2020-03-16] MEDS: Finasteride 5 MG TAB PO SCH (20:52)
[2020-03-16] MEDS: risperiDONE 1 MG TAB PO SCH (21:06)
[2020-03-17] MEDS: traMADol HCl 50 MG TAB PO PRN ×2 (01:46→22:03)
[2020-03-17] MEDS: HYDROcodone/Acetaminophen 5/325 mg Tablet PO PRN (01:47)
[2020-03-17 05:33] LABS: #Eosinphils 0.3 thou/uL (0.0-0.7); #Lymphocytes 1.3 thou/uL (1.20-3.40); #Monocytes 1.2 thou/uL (0.11-0.59); #Neutrophils 13.9 thou/uL (1.40-6.50); %Basophils 0.1 % (0.0-1.0); %Eosinophils 1.9 % (0.0-10.0); %Lymphocytes 7.9 % (21.0-51.0); %Monocytes 7.2 % (0.0-10.0); %Neutrophils 82.9 % (42.0-75.0); Hemoglobin 11.1 g/dL (14.0-18.0); Mean Corpuscular HGB CONC 32.8 g/dL (32.0-36.0); Mean Platelet Volume 7.6 fL (7.4-10.4); Platelet Count 340 thou/uL (130-400); RBC Distribution Width 12.4 % (11.5-14.5); Red Blood Cell (RBC) Count 3.35 mill/uL (4.70-6.10); White Blood Cell (WBC) Count 16.7 thou/uL (4.8-10.8)
[2020-03-17 06:01] LABS: ALT (SGPT) 12 U/L (8-55); AST (SGOT) 13 U/L (5-34); Albumin 3.3 g/dL (3.4-4.8); Alkaline Phosphatase 61 U/L (40-110); Anion Gap 14 mmol/L (10-20); BUN (Urea Nitrogen) 28 mg/dL (8.4-25.7); Bilirubin, Total 0.4 mg/dL (0.2-1.2); Calc. Creatinine Clearance 61 mL/min (70-130); Calcium 8.9 mg/dL (7.8-10.44); Carbon Dioxide 26 mmol/L (23-31); Chloride 106 mmol/L (98-107); Globulin 3.1 g/dL (2.4-3.5); Glucose 124 mg/dL (83-110); Protein, Total 6.4 g/dL (5.8-8.1); Sodium 142 mmol/L (136-145)
[2020-03-17] MEDS: Budesonide 0.5 MG/2 ML NEB NEB SCH ×2 (06:41→19:51)
--- NOTE | 2020-03-17 08:04 | PDOC.HOSPP ---
- Subjective Encounter Date: 03/17/20 Subjective: Patient seen and examined at bedside. He is awake and alert. Certainly there has been some improvement on his mentation although still confused and unable to provide much history. I was informed by RN on 03-16-20 of patient having some coughing when drinking fluids. He has been seen by speech therapy and diet was adjusted to softs and nectar. He remains on 2L O2 NC. Remains afebrile but does have slightly increased leukocytosis. Will continue with IV ABX today and add Flagyl. Repeat chest x-ray today. - Objective Vital Signs & Weight: Vital Signs (12 hours) Temp Pulse Resp BP Pulse Ox 03/17/20 07:39 98.0 F 79 20 140/67 93 L 03/17/20 06:41 85 16 96 03/17/20 06:38 85 16 96 Weight Weight 220 lb I&O: 03/16/20 03/17/20 03/18/20 06:59 06:59 06:59 Intake Total 500 Balance 500 Result Diagrams: 03/17/20 05:09 03/17/20 05:09 Hospitalist ROS - Review of Systems ROS unobtainable: due to mental status (Limited ROS due to confusion. His mentation does appear to be improving.) - Medication Medications: Active Medications Generic Name Dose Route Start Last Admin Trade Name Freq PRN Reason Stop Dose Admin Acetaminophen 650 mg 03/12/20 20:04 03/15/20 20:40 Acetaminophen 325 Mg Tab PO 650 mg Q4H PRN Administration Headache/Fever/Mild Pain (1-3) Hydrocodone Bitart/Acetaminophen 1 tab 03/12/20 20:04 03/17/20 01:47 Hydrocodone/Acetaminophen 5/325 Mg Tablet PO 1 tab Q4H PRN Administration Moderate Pain (4-6) Albuterol/Ipratropium 3 ml 03/13/20 07:00 03/17/20 06:38 Ipratropium/Albuterol Sulfate 3 Ml Neb NEB 3 ml QID-RT AMANDA Administration Amlodipine Besylate 10 mg 03/13/20 09:00 03/16/20 08:09 Amlodipine 10 Mg Tab PO 10 mg DAILY AMANDA Administration Atenolol 25 mg 03/13/20 09:00 03/16/20 08:08 Atenolol 25 Mg Tab PO 25 mg DAILY AMANDA Administration Benzonatate 100 mg 03/12/20 20:04 03/13/20 13:31 Benzonatate 100 Mg Cap PO 100 mg Q6H PRN Administration Cough Budesonide 0.5 mg 03/13/20 06:30 03/17/20 06:41 Budesonide 0.5 Mg/2 Ml Neb NEB 0.5 mg BID-RT AMANDA Administration Cyanocobalamin 1,000 mcg 03/13/20 09:00 03/16/20 08:10 Cyanocobalamin (Vitamin B-12) 1,000 Mcg Tab PO 1,000 mcg DAILY AMANDA Administration Enoxaparin Sodium 40 mg 03/13/20 09:00 03/16/20 08:17 Enoxaparin Sodium 40 Mg/0.4 Ml Syringe SC 40 mg 0900 AMANDA Administration Famotidine 20 mg 03/12/20 21:00 03/16/20 20:52 Famotidine 20 Mg Tab PO 20 mg BID AMANDA Administration Finasteride 5 mg 03/12/20 21:00 03/16/20 20:52 Finasteride 5 Mg Tab PO 5 mg HS AMANDA Administration Folic Acid 1 mg 03/13/20 09:00 03/16/20 08:09 Folic Acid 1 Mg Tab PO 1 mg DAILY AMANDA Administration Guaifenesin 200 mg 03/12/20 20:04 03/13/20 19:51 Diabetic Tussin 200 Mg/10 Ml Udcup PO 200 mg Q4H PRN Administration Cough Ceftriaxone Sodium 1 gm/ 100 mls @ 200 mls/hr 03/13/20 15:00 03/16/20 15:26 Sodium Chloride IVPB 100 mls 1500 AMANDA Administration Azithromycin 500 mg/ Sodium 250 mls @ 250 mls/hr 03/13/20 16:00 03/16/20 16:27 Chloride IVPB 250 mls 1600 AMANDA Administration Lisinopril 40 mg 03/13/20 09:00 03/16/20 08:10 Lisinopril 20 Mg Tab PO 40 mg DAILY AMANDA Administration [place] Carbonate 300 mg 03/12/20 21:00 03/16/20 20:52 [place] Carbonate Er 300 Mg Tablet PO 300 mg BID AMANDA Administration Loratadine 10 mg 03/12/20 20:04 03/16/20 00:15 Loratadine 10 Mg Tab PO 10 mg DAILYPRN PRN Administration Sinus Symptoms Risperidone 1 mg 03/12/20 21:00 03/16/20 21:06 Risperidone 1 Mg Tab PO 1 mg HS AMANDA Administration Saccharomyces Boulardii 250 mg 03/13/20 09:00 03/16/20 08:16 Saccharomyces Boulardii 250 Mg Cap PO 250 mg DAILY AMANDA Administration Tamsulosin HCl 0.4 mg 03/13/20 09:00 03/16/20 08:10 Tamsulosin Hcl 0.4 Mg Cap PO 0.4 mg DAILY AMANDA Administration Tramadol HCl 50 mg 03/12/20 20:04 03/17/20 01:46 Tramadol Hcl 50 Mg Tab PO 50 mg QID PRN Administration Pain - Exam General Appearance: NAD, awake alert Eye: PERRL ENT: normocephalic atraumatic Heart: RRR, no murmur, no gallops, no rubs, normal peripheral pulses Respiratory: no wheezes, no rales, no ronchi, normal chest expansion, no tachypnea, normal percussion Gastrointestinal: soft, non-tender, non-distended, normal bowel sounds, no palpable masses, no hepatomegaly, no splenomegaly, no bruit Neurological: cranial nerve grossly intact, normal sensation to touch, no weakness, no focal deficits, no new deficit Musculoskeletal: generalized weakness Psychiatric - other findings: Confusion/mentation improving Hosp A/P - Plan old records reviewed/req A/P: Patient initially evaluated in ED for progressive shortness of breath and c onfusion found to have possible LLL PNA & UTI. # Pneumonia: Possible LLL PNA. Increasing leukocytosis to 16.7 but no fever. Current O2 requirements remain at 2L. No respiratory distress observed during exam. He was evaluated by speech therapy on 03-16 for coughing when drinking. Diet changed to softs and nectar. On IV ABX Ceftriaxone + Azithromycin, add IV Flagyl for aspiration concerns. Blood cultures +'ve for E.coli and GPS. # UTI: Possible UTI based on UA. Blood cultures +'ve for E.coli and GPS. Continue with IV ABX Ceftriaxone + Azithromycin. # Bacteremia: Gram negative due to E.coli. Suspecting urine as source. Pansensitive. Continue with IV Ceftriaxone. # COPD: History of COPD. Appears stable, not truly on exacerbation. Continue with inhalers and IV ABX for PNA. No need for steroids. # HTN: VS appear stable. Continue with current regimen. Monitor hemodynamics closely. # AMS: Improving. Confusion likely in setting of dementia with acute delirium due to above. Per family patient is usually oriented at baseline. Treat underlying causes per above plan. Avoid delirium triggers. DISPOSITION: Antibiotics adjusted to add IV Flagyl in setting of worsening leukocytosis and concerns for aspiration. Diet modified per ST recommendations. Will likely need rehab at time of discharge. CM consulted to follow for discharge disposition.
[2020-03-17] MEDS: Folic Acid 1 MG TAB PO SCH (08:31)
[2020-03-17] MEDS: Atenolol 25 MG TAB PO SCH (08:32)
[2020-03-17] MEDS: Amlodipine 10 MG TAB PO SCH (08:32)
[2020-03-17] MEDS: Tamsulosin HCl 0.4 MG CAP PO SCH (08:32)
[2020-03-17] MEDS: Lisinopril 20 MG TAB PO SCH (08:32)
[2020-03-17] MEDS: Famotidine 20 MG TAB PO SCH ×2 (08:33→19:58)
[2020-03-17] MEDS: Saccharomyces boulardii 250 MG CAP PO SCH (08:33)
[2020-03-17] MEDS: Enoxaparin Sodium 40 MG/0.4 ML SYRINGE SC SCH (08:34)
[2020-03-17] MEDS: Cyanocobalamin (Vitamin B-12) 1,000 MCG TAB PO SCH (08:34)
--- NOTE | 2020-03-17 12:10 | RAD ---
SINGLE VIEW CHEST: Date: 03/17/2020 COMPARISON: 03/12/2020. HISTORY: Pneumonia. FINDINGS: Single view of the chest shows an enlarged but stable cardiomediastinal silhouette with atherosclerot ic calcifications in the aorta. There is no evidence of consolidation, mass, or pleural effusion. [place] in the left lung base is not seen on one of the images and may have represented atelectasis. Deg enerative changes are seen in the spine. IMPRESSION: Cardiomegaly. POS: EAA
[2020-03-17] MEDS: metroNIDAZOLE 500 MG in Premix Bag 1 BAG IVPB SCH ×2 (12:26→19:56)
[2020-03-17] MEDS: cefTRIAXone\\ROCEPHIN 1 GM in Sodium Chloride 0.9% 100 ML IVPB SCH (16:39)
[2020-03-17] MEDS: Azithromycin 500 MG in Sodium Chloride 0.9% 250 ML 250 ML IVPB SCH (17:48)
[2020-03-17] MEDS: risperiDONE 1 MG TAB PO SCH (19:59)
[2020-03-17] MEDS: Finasteride 5 MG TAB PO SCH (19:59)
[2020-03-17] MEDS: Acetaminophen 325 MG TAB PO PRN (22:03)
[2020-03-18] MEDS: metroNIDAZOLE 500 MG in Premix Bag 1 BAG IVPB SCH ×3 (04:00→18:06)
[2020-03-18 05:47] LABS: #Eosinphils 0.3 thou/uL (0.0-0.7); #Lymphocytes 1.3 thou/uL (1.20-3.40); #Monocytes 1.2 thou/uL (0.11-0.59); #Neutrophils 15.1 thou/uL (1.40-6.50); %Eosinophils 1.9 % (0.0-10.0); %Monocytes 6.8 % (0.0-10.0); %Neutrophils 84.3 % (42.0-75.0); Hemoglobin 11.1 g/dL (14.0-18.0); Mean Corpuscular HGB CONC 32.1 g/dL (32.0-36.0); Mean Corpuscular Hemoglobin 32.7 pg (27.0-31.0); Mean Platelet Volume 7.5 fL (7.4-10.4); Platelet Count 332 thou/uL (130-400); RBC Distribution Width 12.5 % (11.5-14.5); White Blood Cell (WBC) Count 17.9 thou/uL (4.8-10.8)
[2020-03-18 06:08] LABS: Anion Gap 15 mmol/L (10-20); BUN (Urea Nitrogen) 25 mg/dL (8.4-25.7); Calc. Creatinine Clearance 61 mL/min (70-130); Calcium 8.6 mg/dL (7.8-10.44); Carbon Dioxide 23 mmol/L (23-31); Chloride 107 mmol/L (98-107); Glucose 136 mg/dL (83-110); Potassium 3.8 mmol/L (3.5-5.1); Sodium 141 mmol/L (136-145)
[2020-03-18] MEDS: Budesonide 0.5 MG/2 ML NEB NEB SCH ×2 (07:15→19:18)
[2020-03-18] MEDS: Famotidine 20 MG TAB PO SCH ×2 (07:48→20:48)
[2020-03-18] MEDS: Atenolol 25 MG TAB PO SCH (07:48)
[2020-03-18] MEDS: Amlodipine 10 MG TAB PO SCH (07:49)
[2020-03-18] MEDS: Lisinopril 20 MG TAB PO SCH (07:49)
[2020-03-18] MEDS: Saccharomyces boulardii 250 MG CAP PO SCH (07:49)
[2020-03-18] MEDS: Cyanocobalamin (Vitamin B-12) 1,000 MCG TAB PO SCH (07:49)
[2020-03-18] MEDS: Tamsulosin HCl 0.4 MG CAP PO SCH (07:49)
[2020-03-18] MEDS: Enoxaparin Sodium 40 MG/0.4 ML SYRINGE SC SCH (07:50)
[2020-03-18] MEDS: Folic Acid 1 MG TAB PO SCH (07:50)
--- NOTE | 2020-03-18 09:07 | PDOC.HOSPP ---
- Subjective Encounter Date: 03/18/20 Encounter Time: 11:30 Subjective: Patient feeling well. Sleeping and some trouble with getting words out on initial waking but cleared quickly. Much better orientation than on admit. Knows year, location, reason for being in the hospital. - Objective Vital Signs & Weight: Vital Signs (12 hours) Temp Pulse Resp BP BP Pulse Ox 03/18/20 08:00 98 03/18/20 07:49 87 151/74 H 03/18/20 07:48 87 03/18/20 07:44 97.8 F 87 20 141/71 H 98 03/18/20 07:14 92 16 97 03/18/20 04:00 74 18 109/52 L 97 Weight Weight 220 lb I&O: 03/17/20 03/18/20 03/19/20 06:59 06:59 06:59 Intake Total 1000 360 Output Total 9200 Balance -8200 360 Result Diagrams: 03/18/20 05:30 03/18/20 05:30 Hospitalist ROS - Review of Systems Constitutional: denies: fever, chills Respiratory: denies: cough, shortness of breath Cardiovascular: denies: chest pain, palpitations Gastrointestinal: denies: nausea, vomiting, abdominal pain - Medication Medications: Active Medications Generic Name Dose Route Start Last Admin Trade Name Freq PRN Reason Stop Dose Admin Acetaminophen 650 mg 03/12/20 20:04 03/17/20 22:03 Acetaminophen 325 Mg Tab PO 650 mg Q4H PRN Administration Headache/Fever/Mild Pain (1-3) Hydrocodone Bitart/Acetaminophen 1 tab 03/12/20 20:04 03/17/20 01:47 Hydrocodone/Acetaminophen 5/325 Mg Tablet PO 1 tab Q4H PRN Administration Moderate Pain (4-6) Albuterol/Ipratropium 3 ml 03/13/20 07:00 03/18/20 07:14 Ipratropium/Albuterol Sulfate 3 Ml Neb NEB 3 ml QID-RT AMANDA Administration Amlodipine Besylate 10 mg 03/13/20 09:00 03/18/20 07:49 Amlodipine 10 Mg Tab PO 10 mg DAILY AMANDA Administration Atenolol 25 mg 03/13/20 09:00 03/18/20 07:48 Atenolol 25 Mg Tab PO 25 mg DAILY AMANDA Administration Benzonatate 100 mg 03/12/20 20:04 03/13/20 13:31 Benzonatate 100 Mg Cap PO 100 mg Q6H PRN Administration Cough Budesonide 0.5 mg 03/13/20 06:30 03/18/20 07:15 Budesonide 0.5 Mg/2 Ml Neb NEB 0.5 mg BID-RT AMANDA Administration Cyanocobalamin 1,000 mcg 03/13/20 09:00 03/18/20 07:49 Cyanocobalamin (Vitamin B-12) 1,000 Mcg Tab PO 1,000 mcg DAILY AMANDA Administration Enoxaparin Sodium 40 mg 03/13/20 09:00 03/18/20 07:50 Enoxaparin Sodium 40 Mg/0.4 Ml Syringe SC 40 mg 09 AMANDA Administration Famotidine 20 mg 03/12/20 21:00 03/18/20 07:48 Famotidine 20 Mg Tab PO 20 mg BID AMANDA Administration Finasteride 5 mg 03/12/20 21:00 03/17/20 19:59 Finasteride 5 Mg Tab PO 5 mg HS AMANDA Administration Folic Acid 1 mg 03/13/20 09:00 03/18/20 07:50 Folic Acid 1 Mg Tab PO 1 mg DAILY AMANDA Administration Guaifenesin 200 mg 03/12/20 20:04 03/13/20 19:51 Diabetic Tussin 200 Mg/10 Ml Udcup PO 200 mg Q4H PRN Administration Cough Ceftriaxone Sodium 1 gm/ 100 mls @ 200 mls/hr 03/13/20 15:00 03/17/20 16:39 Sodium Chloride IVPB 100 mls 1500 AMANDA Administration Metronidazole 500 mg/ Device 100 mls @ 100 mls/hr 03/17/20 11:00 03/18/20 04:00 IVPB 100 mls 0300,1100,1900 AMANDA Administration Lisinopril 40 mg 03/13/20 09:00 03/18/20 07:49 Lisinopril 20 Mg Tab PO 40 mg DAILY AMANDA Administration [place] Carbonate 300 mg 03/12/20 21:00 03/18/20 07:48 Mel[place] Carbonate Er 300 Mg Tablet PO 300 mg BID AMANDA Administration Loratadine 10 mg 03/12/20 20:04 03/16/20 00:15 Loratadine 10 Mg Tab PO 10 mg DAILYPRN PRN Administration Sinus Symptoms Risperidone 1 mg 03/12/20 21:00 03/17/20 19:59 Risperidone 1 Mg Tab PO 1 mg HS AMANDA Administration Saccharomyces Boulardii 250 mg 03/13/20 09:00 03/18/20 07:49 Saccharomyces Boulardii 250 Mg Cap PO 250 mg DAILY AMANDA Administration Tamsulosin HCl 0.4 mg 03/13/20 09:00 03/18/20 07:49 Tamsulosin Hcl 0.4 Mg Cap PO 0.4 mg DAILY AMANDA Administration Tramadol HCl 50 mg 03/12/20 20:04 03/17/20 22:03 Tramadol Hcl 50 Mg Tab PO 50 mg QID PRN Administration Pain - Exam General Appearance: NAD, awake alert ENT: moist mucosa Heart: RRR, no murmur, no gallops, no rubs Respiratory: CTAB, no wheezes, no rales, no ronchi Gastrointestinal: soft, non-tender, non-distended, normal bowel sounds Psychiatric: normal affect, normal behavior, A&O x 3 Psychiatric - other findings: some slow and difficult speech initially but better after a few min Hosp A/P - Plan A/P: Patient initially evaluated in ED for progressive shortness of breath and confusion found to have possible LLL PNA & UTI. # Pneumonia: Resolved on repeat CXR. Likely was atelectasis. Patient did have some aspiration type symptoms but no worsening of oxygen levels and CXR today clear. Patient was started on Metronidazole yesterday but WBC still up again today. Given lack of fever and clinical improvement, will just monitor for now. Azithromycin d/c'd after 5 days. # UTI: UCx positive for pansensitive E.coli and small amount of GPS. Continue with IV ABX Ceftriaxone. # Bacteremia: Gram negative due to E.coli. Suspecting urine as source. Pansensitive. Continue with IV Ceftriaxone. # COPD: History of COPD. Appears stable, not truly on exacerbation. Continue with inhalers and IV ABX for PNA. No need for steroids. Try off Oxygen. # HTN: VS appear stable. Continue with current regimen. Monitor hemodynamics closely. # AMS: Improving. Confusion likely in setting of dementia with acute delirium due to above. Per family patient is usually oriented at baseline. Treat underlying causes per above plan. Avoid delirium triggers. # Dysphagia: Coughing a few days ago while drinking. ST evaluated and diet modifications made. DISPOSITION: Antibiotics adjusted to add IV Flagyl in setting of worsening leukocytosis and concerns for aspiration. Diet modified per ST recommendations. Patient did great with PT yesterday so can likely go home on d/c if has 24 hour care, otherwise may need SNF. CM consulted to follow for discharge disposition.
[2020-03-18] MEDS: cefTRIAXone\\ROCEPHIN 1 GM in Sodium Chloride 0.9% 100 ML IVPB SCH (14:25)
[2020-03-18] MEDS: HYDROcodone/Acetaminophen 5/325 mg Tablet PO PRN (20:47)
[2020-03-18] MEDS: risperiDONE 1 MG TAB PO SCH (20:47)
[2020-03-18] MEDS: Finasteride 5 MG TAB PO SCH (20:48)
[2020-03-19] MEDS: metroNIDAZOLE 500 MG in Premix Bag 1 BAG IVPB SCH ×2 (04:00→11:08)
[2020-03-19 06:14] LABS: #Eosinphils 0.3 thou/uL (0.0-0.7); #Lymphocytes 1.5 thou/uL (1.20-3.40); #Neutrophils 10.8 thou/uL (1.40-6.50); %Basophils 0.1 % (0.0-1.0); %Eosinophils 1.9 % (0.0-10.0); %Lymphocytes 10.7 % (21.0-51.0); %Monocytes 7.2 % (0.0-10.0); %Neutrophils 80.1 % (42.0-75.0); Hemoglobin 11.1 g/dL (14.0-18.0); Mean Corpuscular HGB CONC 31.5 g/dL (32.0-36.0); Mean Platelet Volume 7.4 fL (7.4-10.4); Platelet Count 353 thou/uL (130-400); RBC Distribution Width 12.3 % (11.5-14.5); Red Blood Cell (RBC) Count 3.46 mill/uL (4.70-6.10); White Blood Cell (WBC) Count 13.5 thou/uL (4.8-10.8)
[2020-03-19 06:44] LABS: Anion Gap 15 mmol/L (10-20); BUN (Urea Nitrogen) 23 mg/dL (8.4-25.7); Calc. Creatinine Clearance 66 mL/min (70-130); Calcium 9.1 mg/dL (7.8-10.44); Carbon Dioxide 23 mmol/L (23-31); Chloride 109 mmol/L (98-107); Glucose 121 mg/dL (83-110); Sodium 143 mmol/L (136-145)
[2020-03-19] MEDS: Budesonide 0.5 MG/2 ML NEB NEB SCH (07:40)
--- NOTE | 2020-03-19 08:04 | PDOC.HOSPP ---
- Subjective Encounter Date: 03/19/20 Encounter Time: 11:20 Subjective: Patient without complaints this morning. Improved orientation. Remembers me from yesterday. States that he has oxygen at home. - Objective Vital Signs & Weight: Vital Signs (12 hours) Temp Pulse Resp BP Pulse Ox 03/19/20 07:40 88 18 95 03/19/20 05:00 97.2 F L 88 16 120/61 93 L 03/19/20 00:15 98.0 F 86 18 130/44 L 91 L 03/18/20 21:40 93 16 112/65 90 L Weight Weight 220 lb I&O: 03/18/20 03/19/20 03/20/20 06:59 06:59 06:59 Intake Total 1000 960 Output Total 9200 900 Balance -8200 60 Result Diagrams: 03/19/20 05:59 03/19/20 05:59 Hospitalist ROS - Review of Systems Constitutional: denies: fever, chills Respiratory: denies: cough, shortness of breath Cardiovascular: denies: chest pain, palpitations Gastrointestinal: denies: nausea, vomiting, abdominal pain Genitourinary: denies: dysuria - Medication Medications: Active Medications Generic Name Dose Route Start Last Admin Trade Name Freq PRN Reason Stop Dose Admin Acetaminophen 650 mg 03/12/20 20:04 03/17/20 22:03 Acetaminophen 325 Mg Tab PO 650 mg Q4H PRN Administration Headache/Fever/Mild Pain (1-3) Hydrocodone Bitart/Acetaminophen 1 tab 03/12/20 20:04 03/18/20 20:47 Hydrocodone/Acetaminophen 5/325 Mg Tablet PO 1 tab Q4H PRN Administration Moderate Pain (4-6) Albuterol/Ipratropium 3 ml 03/13/20 07:00 03/19/20 07:40 Ipratropium/Albuterol Sulfate 3 Ml Neb NEB 3 ml QID-RT AMANDA Administration Amlodipine Besylate 10 mg 03/13/20 09:00 03/18/20 07:49 Amlodipine 10 Mg Tab PO 10 mg DAILY AMANDA Administration Atenolol 25 mg 03/13/20 09:00 03/18/20 07:48 Atenolol 25 Mg Tab PO 25 mg DAILY AAMNDA Administration Benzonatate 100 mg 03/12/20 20:04 03/13/20 13:31 Benzonatate 100 Mg Cap PO 100 mg Q6H PRN Administration Cough Budesonide 0.5 mg 03/13/20 06:30 03/19/20 07:40 Budesonide 0.5 Mg/2 Ml Neb NEB 0.5 mg BID-RT AMANDA Administration Cyanocobalamin 1,000 mcg 03/13/20 09:00 03/18/20 07:49 Cyanocobalamin (Vitamin B-12) 1,000 Mcg Tab PO 1,000 mcg DAILY AMANDA Administration Enoxaparin Sodium 40 mg 03/13/20 09:00 03/18/20 07:50 Enoxaparin Sodium 40 Mg/0.4 Ml Syringe SC 40 mg 0900 AMANDA Administration Famotidine 20 mg 03/12/20 21:00 03/18/20 20:48 Famotidine 20 Mg Tab PO 20 mg BID AMANDA Administration Finasteride 5 mg 03/12/20 21:00 03/18/20 20:48 Finasteride 5 Mg Tab PO 5 mg HS AMANDA Administration Folic Acid 1 mg 03/13/20 09:00 03/18/20 07:50 Folic Acid 1 Mg Tab PO 1 mg DAILY AMANDA Administration Guaifenesin 200 mg 03/12/20 20:04 03/13/20 19:51 Diabetic Tussin 200 Mg/10 Ml Udcup PO 200 mg Q4H PRN Administration Cough Ceftriaxone Sodium 1 gm/ 100 mls @ 200 mls/hr 03/13/20 15:00 03/18/20 14:25 Sodium Chloride IVPB 100 mls 1500 AMANDA Administration Metronidazole 500 mg/ Device 100 mls @ 100 mls/hr 03/17/20 11:00 03/19/20 04:00 IVPB 100 mls 0300,1100,1900 AMANDA Administration Lisinopril 40 mg 03/13/20 09:00 03/18/20 07:49 Lisinopril 20 Mg Tab PO 40 mg DAILY AMANDA Administration [place] Carbonate 300 mg 03/12/20 21:00 03/18/20 20:48 [place] Carbonate Er 300 Mg Tablet PO 300 mg BID AMANDA Administration Loratadine 10 mg 03/12/20 20:04 03/16/20 00:15 Loratadine 10 Mg Tab PO 10 mg DAILYPRN PRN Administration Sinus Symptoms Risperidone 1 mg 03/12/20 21:00 03/18/20 20:47 Risperidone 1 Mg Tab PO 1 mg HS AMANDA Administration Saccharomyces Boulardii 250 mg 03/13/20 09:00 03/18/20 07:49 Saccharomyces Boulardii 250 Mg Cap PO 250 mg DAILY AMANDA Administration Tamsulosin HCl 0.4 mg 03/13/20 09:00 03/18/20 07:49 Tamsulosin Hcl 0.4 Mg Cap PO 0.4 mg DAILY AMANDA Administration Tramadol HCl 50 mg 03/12/20 20:04 03/17/20 22:03 Tramadol Hcl 50 Mg Tab PO 50 mg QID PRN Administration Pain - Exam General Appearance: NAD, awake alert ENT: moist mucosa Heart: RRR, no murmur, no gallops, no rubs Respiratory: CTAB, no wheezes, no rales, no ronchi Gastrointestinal: soft, non-tender, non-distended, normal bowel sounds Psychiatric: normal affect, normal behavior, A&O x 3 Hosp A/P - Plan A/P: Patient initially evaluated in ED for progressive shortness of breath and confusion found to have possible LLL PNA & UTI. # Pneumonia: Resolved on repeat CXR. Likely was atelectasis. Patient did have some aspiration type symptoms but no worsening of oxygen levels and CXR today clear. Patient was started on Metronidazole 03/17/2020 and WBC trending down today. Azithromycin d/c'd after 5 days. Still requiring low dose O2. Per patient he uses oxygen at home, up to 3L. Have not been able to confirm with yet. # UTI: UCx positive for pansensitive E.coli and small amount of GPS. Continue with IV ABX Ceftriaxone. # Bacteremia: Gram negative due to E.coli. Suspecting urine as source. Pansensitive. Continue with IV Ceftriaxone. # COPD: History of COPD. Appears stable, not truly on exacerbation. Continue with inhalers and IV ABX for PNA. No need for steroids. Try off Oxygen. # HTN: VS appear stable. Continue with current regimen. Monitor hemodynamics closely. # AMS: Improving. Confusion likely in setting of dementia with acute delirium due to above. Per family patient is usually oriented at baseline. Treat underlying causes per above plan. Avoid delirium triggers. # Dysphagia: Coughing a few days ago while drinking. ST evaluated and diet modifications made. DISPOSITION: Antibiotics adjusted to add IV Flagyl in setting of worsening leukocytosis and concerns for aspiration, however CXR negative and WBC now trending down. Will d/c Flagyl and transition to oral antibiotics. Diet modified per ST recommendations. Patient did great with PT on Wednesday. Will plan for d/c home today if can care for him at home.
[2020-03-19 08:07] VITALS: TEMP 98.2
[2020-03-19] MEDS: Famotidine 20 MG TAB PO SCH (08:13)
[2020-03-19] MEDS: Lisinopril 20 MG TAB PO SCH (08:13)
[2020-03-19] MEDS: Atenolol 25 MG TAB PO SCH (08:13)
[2020-03-19] MEDS: Saccharomyces boulardii 250 MG CAP PO SCH (08:13)
[2020-03-19] MEDS: Tamsulosin HCl 0.4 MG CAP PO SCH (08:14)
[2020-03-19] MEDS: Amlodipine 10 MG TAB PO SCH (08:14)
[2020-03-19] MEDS: Enoxaparin Sodium 40 MG/0.4 ML SYRINGE SC SCH (08:14)
[2020-03-19] MEDS: Cyanocobalamin (Vitamin B-12) 1,000 MCG TAB PO SCH (08:14)
[2020-03-19] MEDS: Folic Acid 1 MG TAB PO SCH (08:14)
[2020-03-19 08:18] VITALS: BP 151/74
--- NOTE | 2020-03-21 11:23 | DIS ---
DATE OF ADMISSION: 03/12/2020 DATE OF DISCHARGE: 03/19/2020 PRIMARY CARE PHYSICIAN: Olya Magaña, [employer] REASON FOR ADMISSION: Pneumonia and UTI. DIAGNOSES AT DISCHARGE: 1. Urinary tract infection with Escherichia coli and group B strep. 2. Bacteremia with Escherichia coli. 3. Pneumonia ruled out. 4. Chronic obstructive pulmonary disease, chronic, without exacerbation. 5. Hypertension. 6. Acute delirium with likely mild underlying dementia. 7. Dysphagia. PROCEDURES: None. CONSULTATIONS: None. SUMMARY OF HOSPITAL COURSE: This is an 89-year-old male, brought in for increased shortness of breath, confusion, and some tachypnea. He was unable to give any history due to delirium. Did have a left lower lobe infiltrate on his chest x-ray, UA showing a UTI, and did meet sepsis criteria. The patient was put on IV antibiotics. Blood and urine cultures were collected. The patient was also put on oxygen. Per the patient's , the patient does have an oxygen concentrator at home which he uses occasionally for his COPD. She also reported that he gets very confused with urinary tract infection, though usually he will have symptoms of the UTI prior to getting the confusion, but he just got confused at this time. The patient did grow back E coli both from his urine and from his blood, pansensitive to antibiotics. He continued to do well on a very small dose of O2 throughout his hospital stay. He had a repeat chest x-ray when his white blood cell count continued to increase in spite of antibiotics, which showed resolution of the infiltrate and thought to be likely atelectasis per the radiologist's report. The patient also did have a coughing spell after eating once in the hospital, so metronidazole was added for any possibility of aspiration. However, the patient did not develop any infiltrate on chest x-ray, no increased respiratory symptoms, so this was eventually discontinued. The patient improved clinically, he cleared and became alert and oriented x3 on the Rocephin. He did have a course of azithromycin for the possible pneumonia before that, which was completed after 5 days. The patient was doing very well on the day of discharge. He was ambulating well with PT. The patient did have 2 days before discharge some acute urinary retention greater than a liter in his bladder and is unable to pee. Berry was placed and then he was able to put out several liters of urine, which also helped with his mental clearing. The patient's is able to provide care for him at home and so he is being discharged home with Home Health and with urology followup. DISCHARGE MANAGEMENT: Discharged home with [facility]. ACTIVITY: As tolerated. DIET: Healthy heart, low-sodium diet with NDD-3 chopped, extra sauce/gravy and nectar thick liquids for his textures. THERAPY: Occupational and physical therapy via Home Health. EQUIPMENT SUPPLIES: He can continue using his oxygen at home as needed, though he was saturating well on room air when checked on the day of discharge and he is being sent home with a Berry. FOLLOWUP: With primary care physician as needed when in the next week to reassess the Berry. DISCHARGE MEDICATIONS: 1. Levofloxacin 500 mg daily for another 3 days. 2. Amlodipine 10 mg daily. 3. Atenolol 25 mg daily. 4. Pulmicort 0.5 mg neb twice a day. 5. Vitamin B12 5000 mcg daily. 6. Finasteride 5 mg at night. 7. DuoNeb 4 times a day. 8. Lisinopril 40 mg daily. 9. [place] carbonate 300 mg twice a day. 10. One daily vitamin for men one tablet daily. 11. Flomax 0.4 mg at night. 12. Tramadol as needed. 13. 1 tablet p.o. daily. TIME SPENT: Arranging the details of this discharge took 35 minutes. Job ID: [id number]
== END 2020-03-19 14:43 | disposition home health service (06) | DRG 871 ==
LOC: ERS 12:38 → ERHOLD 15:14 → T4-B 19:52
PROVIDERS: ADMIT Internal Medicine; ATTEND Emergency Medicine
PROC: 0T9B70Z Drainage of Bladder with Drainage Device, Via Natural or Artificial Opening (ICD-10-PCS; principal; 2020-03-15)
DX: A41.51 Sepsis due to Escherichia coli [E. coli] (principal); J15.5 Pneumonia due to Escherichia coli; G93.41 Metabolic encephalopathy; J44.0 Chronic obstructive pulmonary disease with (acute) lower respiratory infection; N30.00 Acute cystitis without hematuria; Z20.828 Contact with and (suspected) exposure to other viral communicable diseases; I48.91 Unspecified atrial fibrillation; I10 Essential (primary) hypertension; M19.90 Unspecified osteoarthritis, unspecified site; F41.9 Anxiety disorder, unspecified; F32.9 Major depressive disorder, single episode, unspecified; N40.1 Benign prostatic hyperplasia with lower urinary tract symptoms; R33.8 Other retention of urine; G30.9 Alzheimer's disease, unspecified; F02.80 Dementia in other diseases classified elsewhere, unspecified severity, without behavioral disturbance, psychotic disturbance, mood disturbance, and anxiety; D75.89 Other specified diseases of blood and blood-forming organs; F39 Unspecified mood [affective] disorder; Z79.899 Other long term (current) drug therapy; Z79.51 Long term (current) use of inhaled steroids
CPT/HCPCS: 36415; 51701; 71045; 80048; 80053; 81003; 81015; 83605; 83880; 84484; 85025; 87040; 87077; 87086; 87149; 87186; 93005; 94640; 94760; 96365; 96366; 96367; 96375; J0456; J0696; J1100; J1650; J3490; J7050; J7620; J7626; U0002

== ENCOUNTER 2021-03-18 18:14 | Inpatient (IN) | payer MEDICARE ==
[2021-03-18 19:08] LABS: #Lymphocytes 0.6 thou/uL (1.20-3.40); #Monocytes 0.1 thou/uL (0.11-0.59); #Neutrophils 6.2 thou/uL (1.40-6.50); %Eosinophils 0.1 % (0.0-10.0); %Monocytes 1.2 % (0.0-10.0); %Neutrophils 90.7 % (42.0-75.0); Hemoglobin 12.5 g/dL (14.0-18.0); Mean Corpuscular HGB CONC 32.5 g/dL (32.0-36.0); Mean Platelet Volume 8.1 fL (7.4-10.4); Platelet Count 167 thou/uL (130-400); RBC Distribution Width 12.2 % (11.5-14.5); Red Blood Cell (RBC) Count 3.79 mill/uL (4.70-6.10); White Blood Cell (WBC) Count 6.9 thou/uL (4.8-10.8)
[2021-03-18 19:32] LABS: ALT (SGPT) 13 U/L (8-55); AST (SGOT) 16 U/L (5-34); Albumin 4.1 g/dL (3.4-4.8); Alkaline Phosphatase 56 U/L (40-110); Anion Gap 11 mmol/L (10-20); BUN (Urea Nitrogen) 43 mg/dL (8.4-25.7); Bilirubin, Total 0.5 mg/dL (0.2-1.2); Calc. Creatinine Clearance 0 mL/min (70-130); Calcium 10.5 mg/dL (7.8-10.44); Carbon Dioxide 24 mmol/L (23-31); Chloride 106 mmol/L (98-107); Glucose 170 mg/dL (83-110); Magnesium 2.7 mg/dL (1.6-2.6); Potassium 5.2 mmol/L (3.5-5.1); Protein, Total 7.1 g/dL (5.8-8.1); Sodium 136 mmol/L (136-145)
[2021-03-18 19:40] LABS: SARS-CoV-2 NAA Rapid Test Not Detected (NotDetected)
[2021-03-18] MEDS ORDERED: Acetaminophen 500 MG TAB ONE (20:48)
[2021-03-18] MEDS ORDERED: traMADol HCl 50 MG TAB ONE (20:48)
[2021-03-18 22:49] LABS: Troponin I 0.018 ng/mL (< 0.028)
[2021-03-18] MEDS ORDERED: Ondansetron PF 4 MG/2 ML Vial IVP PRN (23:12)
[2021-03-18] MEDS ORDERED: traMADol HCl 50 MG TAB PO PRN (23:14)
[2021-03-19] MEDS: Sodium Chloride 0.9% 1,000 ML IV SCH ×2 (00:01→23:37)
[2021-03-19] MEDS: cefTRIAXone\\ROCEPHIN 1 GM in Sodium Chloride 0.9% 100 ML IVPB SCH ×2 (00:02→23:38)
[2021-03-19 01:51] LABS: Troponin I 0.013 ng/mL (< 0.028)
[2021-03-19 05:44] LABS: ALT (SGPT) 13 U/L (8-55); AST (SGOT) 14 U/L (5-34); Alkaline Phosphatase 57 U/L (40-110); Anion Gap 13 mmol/L (10-20); BUN (Urea Nitrogen) 38 mg/dL (8.4-25.7); Bilirubin, Total 0.3 mg/dL (0.2-1.2); Calc. Creatinine Clearance 55 mL/min (70-130); Calcium 10.4 mg/dL (7.8-10.44); Carbon Dioxide 22 mmol/L (23-31); Chloride 107 mmol/L (98-107); Globulin 3.2 g/dL (2.4-3.5); Glucose 190 mg/dL (83-110); Potassium 4.7 mmol/L (3.5-5.1); Protein, Total 7.2 g/dL (5.8-8.1); Sodium 137 mmol/L (136-145)
[2021-03-19 06:15] LABS: Band 1 % (5-11); Hemoglobin 12.4 g/dL (14.0-18.0); Lymphocytes 6 % (21-51); MDiff Complete? YES; Mean Corpuscular HGB CONC 33.3 g/dL (32.0-36.0); Mean Corpuscular Hemoglobin 33.6 pg (27.0-31.0); Mean Platelet Volume 8.4 fL (7.4-10.4); Monocytes 2 % (0-10); Neutrophil 91 % (42-75); Platelet Count 154 thou/uL (130-400); Platelet Morphology Comment Appears Adequate; RBC Distribution Width 12.1 % (11.5-14.5); Red Blood Cell (RBC) Count 3.69 mill/uL (4.70-6.10); White Blood Cell (WBC) Count 7.3 thou/uL (4.8-10.8)
[2021-03-19] MEDS ORDERED: Loperamide HCl 2 MG CAP PO PRN (09:31)
[2021-03-19] MEDS ORDERED: GUAIFENESIN SF SOLN 200 MG/10 ML UDCUP PO PRN (09:31)
[2021-03-19] MEDS ORDERED: Benzonatate 100 MG CAP PO PRN (09:31)
[2021-03-19] MEDS ORDERED: Hydrocerin (Eucerin) Cream 120 gm Jar TOP PRN (09:31)
[2021-03-19] MEDS ORDERED: Bisacodyl 5 MG TAB PO PRN (09:31)
[2021-03-19] MEDS ORDERED: hydrALAZINE 20 MG/ML VIAL SLOW IVP PRN (09:31)
[2021-03-19] MEDS ORDERED: Artificial Tear Sol 15 ML BOT EA EYE PRN (09:31)
[2021-03-19] MEDS ORDERED: Cepastat Lozenges 1 LOZ PO PRN (09:31)
[2021-03-19] MEDS ORDERED: Loratadine 10 MG TAB PO PRN (09:31)
[2021-03-19] MEDS ORDERED: Senokot S 8.6-50 MG TAB PO PRN (09:31)
[2021-03-19] MEDS ORDERED: Sodium Chloride 0.65% Nasal 44 ML BOT EA NARE PRN (09:31)
[2021-03-19] MEDS: Enoxaparin Sodium 40 MG/0.4 ML SYRINGE SC SCH (11:19)
[2021-03-19] MEDS: Famotidine 20 MG TAB PO SCH (11:19)
[2021-03-19] MEDS: Amlodipine 10 MG TAB PO SCH (11:19)
[2021-03-19] MEDS: Budesonide 0.5 MG/2 ML NEB NEB SCH (19:41)
[2021-03-19] MEDS: Finasteride 5 MG TAB PO SCH (20:22)
[2021-03-19] MEDS: Tamsulosin HCl 0.4 MG CAP PO SCH (20:22)
[2021-03-19] MEDS: HYDROcodone/Acetaminophen 5/325 mg Tablet PO PRN (20:22)
[2021-03-20] MEDS ORDERED: ALPRAZolam 0.5 MG TAB PO SCH (01:45)
[2021-03-20] MEDS: Budesonide 0.5 MG/2 ML NEB NEB SCH ×2 (07:17→18:52)
[2021-03-20] MEDS: Enoxaparin Sodium 40 MG/0.4 ML SYRINGE SC SCH (09:47)
[2021-03-20] MEDS: Famotidine 20 MG TAB PO SCH (09:47)
[2021-03-20] MEDS: Lithium Carbonate 150 MG CAP PO SCH ×2 (09:47→20:50)
[2021-03-20] MEDS: Amlodipine 10 MG TAB PO SCH (09:48)
[2021-03-20] MEDS: Ziprasidone 20 MG VIAL IM PRN ×3 (10:40→23:45)
[2021-03-20] MEDS: HYDROcodone/Acetaminophen 5/325 mg Tablet PO PRN (20:50)
[2021-03-20] MEDS: Tamsulosin HCl 0.4 MG CAP PO SCH (20:50)
[2021-03-20] MEDS: Finasteride 5 MG TAB PO SCH (20:50)
[2021-03-20] MEDS: cefTRIAXone\\ROCEPHIN 1 GM in Sodium Chloride 0.9% 100 ML IVPB SCH (23:27)
[2021-03-20] MEDS: Sodium Chloride 0.9% 1,000 ML IV SCH (23:28)
[2021-03-20] MEDS: Sterile Water 10 ML VIAL FS PRN (23:46)
[2021-03-21] MEDS: HYDROcodone/Acetaminophen 5/325 mg Tablet PO PRN (03:20)
[2021-03-21] MEDS: Budesonide 0.5 MG/2 ML NEB NEB SCH ×2 (07:56→19:00)
[2021-03-21] MEDS: Ziprasidone 20 MG VIAL IM PRN ×2 (08:57→22:15)
[2021-03-21] MEDS: Amlodipine 10 MG TAB PO SCH (08:58)
[2021-03-21] MEDS: Enoxaparin Sodium 40 MG/0.4 ML SYRINGE SC SCH (08:58)
[2021-03-21] MEDS: Lithium Carbonate 150 MG CAP PO SCH ×2 (08:58→23:25)
[2021-03-21] MEDS: Famotidine 20 MG TAB PO SCH (09:16)
[2021-03-21] MEDS: Sodium Chloride 0.9% 1,000 ML IV SCH (22:27)
[2021-03-21] MEDS: Finasteride 5 MG TAB PO SCH (23:25)
[2021-03-21] MEDS: Tamsulosin HCl 0.4 MG CAP PO SCH (23:25)
[2021-03-21] MEDS: cefTRIAXone\\ROCEPHIN 1 GM in Sodium Chloride 0.9% 100 ML IVPB SCH (23:32)
[2021-03-22] MEDS: Budesonide 0.5 MG/2 ML NEB NEB SCH ×2 (07:27→18:49)
[2021-03-22] MEDS: Ziprasidone 20 MG VIAL IM PRN ×2 (08:45→21:03)
[2021-03-22] MEDS: Enoxaparin Sodium 40 MG/0.4 ML SYRINGE SC SCH (08:55)
[2021-03-22] MEDS: Amlodipine 10 MG TAB PO SCH (08:56)
[2021-03-22] MEDS: Famotidine 20 MG TAB PO SCH (08:56)
[2021-03-22] MEDS: Lithium Carbonate 150 MG CAP PO SCH ×2 (08:56→21:02)
[2021-03-22] MEDS: Finasteride 5 MG TAB PO SCH (21:02)
[2021-03-22] MEDS: Tamsulosin HCl 0.4 MG CAP PO SCH (21:03)
[2021-03-22 22:38] LABS: Bilirubin Negative (Negative); Blood, Urine Trace (Negative); Clarity Clear (Clear); Glucose, Urine (Dipstick) Normal (Negative); Ketone, Urine Negative (Negative); Leukocyte 250 Leu/uL (Negative); Nitrite Negative (Negative); Protein, Urine (Dipstick) 50 mg/dL (Neg-Trace); RBC/HPF 0-3 HPF (0-3); Specific Gravity, Urine 1.017 (1.002-1.036); Squamous Epithelial 0-3 HPF (0-3); Urobilinogen Normal mg/dL (Less than 2)
[2021-03-22 22:46] LABS: WBC/HPF 0-3 HPF (0-3)
[2021-03-22 22:47] LABS: Bacteria/HPF None Seen HPF (None Seen)
[2021-03-22 22:48] LABS: Urine Culture Reflex Yes Yes
[2021-03-22] MEDS: cefTRIAXone\\ROCEPHIN 1 GM in Sodium Chloride 0.9% 100 ML IVPB SCH (23:27)
[2021-03-22] MEDS: Sodium Chloride 0.9% 1,000 ML IV SCH (23:28)
[2021-03-23] MEDS: Ziprasidone 20 MG VIAL IM PRN ×3 (01:33→21:55)
[2021-03-23] MEDS: Budesonide 0.5 MG/2 ML NEB NEB SCH ×2 (07:25→19:11)
[2021-03-23 08:40] LABS: Vitamin D, 25 Hydroxy 17.9 ng/ml (> 30.0)
[2021-03-23 08:46] LABS: Thyroid Stimulating Hormone 0.7486 uIU/mL (0.35-4.94)
[2021-03-23] MEDS: Enoxaparin Sodium 40 MG/0.4 ML SYRINGE SC SCH (09:04)
[2021-03-23] MEDS: Famotidine 20 MG TAB PO SCH (09:04)
[2021-03-23] MEDS: Lithium Carbonate 150 MG CAP PO SCH ×2 (09:04→21:04)
[2021-03-23] MEDS: Sterile Water 10 ML VIAL FS PRN (09:04)
[2021-03-23] MEDS: Amlodipine 10 MG TAB PO SCH (09:04)
[2021-03-23] MEDS: Cholecalciferol (Vitamin D3) 400 UNITS TAB PO SCH (11:27)
[2021-03-23] MEDS: Finasteride 5 MG TAB PO SCH (21:04)
[2021-03-23] MEDS: Tamsulosin HCl 0.4 MG CAP PO SCH (21:04)
[2021-03-24] MEDS: cefTRIAXone\\ROCEPHIN 1 GM in Sodium Chloride 0.9% 100 ML IVPB SCH (00:26)
[2021-03-24] MEDS: Ziprasidone 20 MG VIAL IM PRN ×3 (05:12→15:33)
[2021-03-24] MEDS: Budesonide 0.5 MG/2 ML NEB NEB SCH ×2 (06:37→18:42)
[2021-03-24] MEDS: Cholecalciferol (Vitamin D3) 400 UNITS TAB PO SCH (09:29)
[2021-03-24] MEDS: Lithium Carbonate 150 MG CAP PO SCH (09:29)
[2021-03-24] MEDS: Amlodipine 10 MG TAB PO SCH (09:29)
[2021-03-24] MEDS: Enoxaparin Sodium 40 MG/0.4 ML SYRINGE SC SCH (09:29)
[2021-03-24] MEDS: Famotidine 20 MG TAB PO SCH (09:35)
[2021-03-24] MEDS: Sodium Chloride 0.9% 1,000 ML IV SCH (09:48)
[2021-03-24 16:02] LABS: #Eosinphils 0.2 thou/uL (0.0-0.7); #Lymphocytes 1.4 thou/uL (1.20-3.40); #Monocytes 0.9 thou/uL (0.11-0.59); #Neutrophils 8.5 thou/uL (1.40-6.50); %Basophils 0.3 % (0.0-1.0); %Eosinophils 1.4 % (0.0-10.0); %Lymphocytes 12.9 % (21.0-51.0); %Monocytes 8.4 % (0.0-10.0); Hemoglobin 14.2 g/dL (14.0-18.0); Mean Corpuscular HGB CONC 31.6 g/dL (32.0-36.0); Mean Corpuscular Hemoglobin 32.8 pg (27.0-31.0); Mean Platelet Volume 7.9 fL (7.4-10.4); Platelet Count 190 thou/uL (130-400); RBC Distribution Width 12.6 % (11.5-14.5); Red Blood Cell (RBC) Count 4.32 mill/uL (4.70-6.10); White Blood Cell (WBC) Count 11.1 thou/uL (4.8-10.8)
[2021-03-24 16:23] LABS: ALT (SGPT) 17 U/L (8-55); AST (SGOT) 15 U/L (5-34); Alkaline Phosphatase 57 U/L (40-110); Anion Gap 11 mmol/L (10-20); BUN (Urea Nitrogen) 36 mg/dL (8.4-25.7); Bilirubin, Total 0.5 mg/dL (0.2-1.2); Calc. Creatinine Clearance 46 mL/min (70-130); Carbon Dioxide 25 mmol/L (23-31); Chloride 122 mmol/L (98-107); Globulin 3.1 g/dL (2.4-3.5); Glucose 122 mg/dL (83-110); Potassium 4.4 mmol/L (3.5-5.1); Protein, Total 7.1 g/dL (5.8-8.1); Sodium 154 mmol/L (136-145)
[2021-03-24] MEDS ORDERED: Amino Acids 4.25 %/Dextrose 5% 1,000 ML IV SCH (20:15)
[2021-03-24] MEDS: Dextrose 5% in Water 1,000 ML IV SCH (20:54)
[2021-03-25] MEDS: Finasteride 5 MG TAB PO SCH ×3 (00:12→21:01)
[2021-03-25] MEDS: Lithium Carbonate 150 MG CAP PO SCH ×4 (00:12→21:00)
[2021-03-25] MEDS: Tamsulosin HCl 0.4 MG CAP PO SCH ×3 (00:13→21:02)
[2021-03-25] MEDS: HYDROcodone/Acetaminophen 5/325 mg Tablet PO PRN ×2 (02:10→19:41)
[2021-03-25] MEDS ORDERED: Morphine 4 MG/ML VIAL SLOW IVP SCH (03:15)
[2021-03-25 05:29] LABS: #Eosinphils 0.2 thou/uL (0.0-0.7); #Lymphocytes 1.1 thou/uL (1.20-3.40); #Monocytes 0.9 thou/uL (0.11-0.59); #Neutrophils 8.3 thou/uL (1.40-6.50); %Basophils 0.3 % (0.0-1.0); %Lymphocytes 10.7 % (21.0-51.0); %Monocytes 8.1 % (0.0-10.0); Hemoglobin 13.3 g/dL (14.0-18.0); Mean Corpuscular HGB CONC 30.8 g/dL (32.0-36.0); Mean Corpuscular Hemoglobin 31.8 pg (27.0-31.0); Mean Platelet Volume 8.6 fL (7.4-10.4); Platelet Count 177 thou/uL (130-400); RBC Distribution Width 12.6 % (11.5-14.5); White Blood Cell (WBC) Count 10.5 thou/uL (4.8-10.8)
[2021-03-25] MEDS: Ziprasidone 20 MG VIAL IM PRN ×3 (05:30→20:54)
[2021-03-25 05:55] LABS: ALT (SGPT) 18 U/L (8-55); AST (SGOT) 15 U/L (5-34); Albumin 3.7 g/dL (3.4-4.8); Alkaline Phosphatase 53 U/L (40-110); Anion Gap 10 mmol/L (10-20); BUN (Urea Nitrogen) 37 mg/dL (8.4-25.7); Bilirubin, Total 0.5 mg/dL (0.2-1.2); Calc. Creatinine Clearance 49 mL/min (70-130); Carbon Dioxide 26 mmol/L (23-31); Chloride 122 mmol/L (98-107); Globulin 2.9 g/dL (2.4-3.5); Glucose 137 mg/dL (83-110); Magnesium 2.9 mg/dL (1.6-2.6); Potassium 4.1 mmol/L (3.5-5.1); Protein, Total 6.6 g/dL (5.8-8.1); Sodium 154 mmol/L (136-145)
[2021-03-25] MEDS: Budesonide 0.5 MG/2 ML NEB NEB SCH ×2 (07:03→18:45)
[2021-03-25] MEDS ORDERED: Amino Acids 4.25 %/Dextrose 5% 2,000 ML BAG IV SCH (09:00)
[2021-03-25] MEDS: Amlodipine 10 MG TAB PO SCH (09:18)
[2021-03-25] MEDS: Famotidine 20 MG TAB PO SCH (09:19)
[2021-03-25] MEDS: Dextrose 5% in Water 1,000 ML IV SCH ×3 (09:19→17:40)
[2021-03-25] MEDS: Enoxaparin Sodium 40 MG/0.4 ML SYRINGE SC SCH (09:19)
[2021-03-25] MEDS: Cholecalciferol (Vitamin D3) 400 UNITS TAB PO SCH (09:24)
[2021-03-25 15:20] LABS: Anion Gap 10 mmol/L (10-20); BUN (Urea Nitrogen) 34 mg/dL (8.4-25.7); Calc. Creatinine Clearance 52 mL/min (70-130); Calcium 9.5 mg/dL (7.8-10.44); Carbon Dioxide 26 mmol/L (23-31); Chloride 118 mmol/L (98-107); Glucose 187 mg/dL (83-110); Potassium 3.9 mmol/L (3.5-5.1); Sodium 150 mmol/L (136-145)
[2021-03-25 15:22] LABS: Actual Bicarbonate (HCO3a) 26.5 mEq/L (22-28); Base Excess (BEa) 0.2 mEq/L (-2.0 to +3.0); CO2 Tension 49.9 mmHg (35.0-45.0); Calcium, Ionized (arterial) 1.32 mmol/L (1.12-1.30); Carboxyhemoglobin (COHb) 0.7 gm% (0.0-3.0); Hemoglobin (Hb) 13.1 g/dL (14.0-18.0); O2 Tension (PaO2), arterial 75.2 mmHg (> 60.0); Potassium - ABG Lab 3.86 mmol/L (3.70-5.30); pH, Arterial 7.34 (7.35-7.45)
[2021-03-25 15:23] LABS: ALV-art Gradient 62.065 mmHg (0-20); Puncture Site LRA
[2021-03-25 15:25] VITALS: BMI 24.1
[2021-03-26] MEDS: Dextrose 5% in Water 1,000 ML IV SCH ×2 (01:17→05:03)
[2021-03-26] MEDS: HYDROcodone/Acetaminophen 5/325 mg Tablet PO PRN (03:35)
[2021-03-26] MEDS: Budesonide 0.5 MG/2 ML NEB NEB SCH (07:58)
[2021-03-26 08:58] LABS: Anion Gap 8 mmol/L (10-20); BUN (Urea Nitrogen) 26 mg/dL (8.4-25.7); Calc. Creatinine Clearance 63 mL/min (70-130); Calcium 9.3 mg/dL (7.8-10.44); Carbon Dioxide 26 mmol/L (23-31); Chloride 115 mmol/L (98-107); Glucose 176 mg/dL (83-110); Potassium 3.7 mmol/L (3.5-5.1); Sodium 145 mmol/L (136-145)
[2021-03-26] MEDS ORDERED: Famotidine 20 MG TAB PO SCH (09:00)
[2021-03-26] MEDS: Amlodipine 10 MG TAB PO SCH (09:53)
[2021-03-26] MEDS: Lithium Carbonate 150 MG CAP PO SCH (09:54)
[2021-03-26] MEDS: Enoxaparin Sodium 40 MG/0.4 ML SYRINGE SC SCH (09:55)
[2021-03-26] MEDS: Cholecalciferol (Vitamin D3) 400 UNITS TAB PO SCH (10:04)
[2021-03-26 15:27] LABS: SARS-CoV-2 PCR by NAA Not Detected (NotDetected)
[2021-03-26 17:56] VITALS: TEMP 97.7
[2021-03-26 18:00] VITALS: BP 148/85
== END 2021-03-26 17:40 | DRG 725 ==
LOC: ERS 18:14 → 2NO 21:30 → OBSVTOIN 03-19 11:22
PROVIDERS: ADMIT Internal Medicine; ATTEND Internal Medicine
DX: N40.1 Benign prostatic hyperplasia with lower urinary tract symptoms (principal); Z20.822 Contact with and (suspected) exposure to COVID-19; J96.01 Acute respiratory failure with hypoxia; G92.8 Other toxic encephalopathy; J44.1 Chronic obstructive pulmonary disease with (acute) exacerbation; E87.0 Hyperosmolality and hypernatremia; F02.81 Dementia in other diseases classified elsewhere, unspecified severity, with behavioral disturbance; I47.2 Ventricular tachycardia; N17.9 Acute kidney failure, unspecified; N30.00 Acute cystitis without hematuria; T43.595A Adverse effect of other antipsychotics and neuroleptics, initial encounter; R91.8 Other nonspecific abnormal finding of lung field; N28.1 Cyst of kidney, acquired; I71.4 Abdominal aortic aneurysm, without rupture; I71.2 Thoracic aortic aneurysm, without rupture; F31.9 Bipolar disorder, unspecified; I48.91 Unspecified atrial fibrillation; I10 Essential (primary) hypertension; M19.90 Unspecified osteoarthritis, unspecified site; R33.8 Other retention of urine; G30.1 Alzheimer's disease with late onset; D75.89 Other specified diseases of blood and blood-forming organs; R13.12 Dysphagia, oropharyngeal phase; E55.9 Vitamin D deficiency, unspecified; R00.1 Bradycardia, unspecified; I08.3 Combined rheumatic disorders of mitral, aortic and tricuspid valves; Z79.899 Other long term (current) drug therapy; Z79.51 Long term (current) use of inhaled steroids; Z78.1 Physical restraint status
CPT/HCPCS: 0240U; 36415; 36416; 36600; 51700; 51701; 70450; 71045; 71260; 80048; 80053; 80178; 81001; 82306; 82607; 82746; 82805; 83605; 83735; 84443; 84484; 85007; 85025; 85027; 87040; 87086; 93005; 93010; 93306; 94640; 94760; 95819; 95957; 96372; 96374; G0378; J0696; J1650; J2270; J3486; J3490; J7050; J7070; J7620; J7626; U0003; U0005

== ENCOUNTER 2021-04-21 22:28 | Inpatient (IN) | payer MEDICARE ==
[2021-04-21] MEDS ORDERED: Lorazepam 2 MG/ML VIAL ONE (23:39)
[2021-04-21 23:45] LABS: #Eosinphils 0.1 thou/uL (0.0-0.7); #Monocytes 0.6 thou/uL (0.11-0.59); #Neutrophils 3.1 thou/uL (1.40-6.50); %Basophils 0.3 % (0.0-1.0); %Eosinophils 1.1 % (0.0-10.0); %Lymphocytes 21.3 % (21.0-51.0); %Monocytes 12.7 % (0.0-10.0); %Neutrophils 64.6 % (42.0-75.0); Hemoglobin 10.8 g/dL (14.0-18.0); Mean Corpuscular HGB CONC 32.9 g/dL (32.0-36.0); Mean Corpuscular Hemoglobin 32.2 pg (27.0-31.0); Mean Corpuscular Volume 97.7 fL (78.0-98.0); Mean Platelet Volume 7.6 fL (7.4-10.4); Platelet Count 153 thou/uL (130-400); RBC Distribution Width 13.5 % (11.5-14.5); Red Blood Cell (RBC) Count 3.37 mill/uL (4.70-6.10); White Blood Cell (WBC) Count 4.8 thou/uL (4.8-10.8)
[2021-04-21] MEDS ORDERED: cefTRIAXone\\ROCEPHIN 1 GM VIAL ONE (23:56)
[2021-04-22 00:06] LABS: ALT (SGPT) Less than 7 U/L (8-55); AST (SGOT) 12 U/L (5-34); Albumin 3.2 g/dL (3.4-4.8); Alkaline Phosphatase 56 U/L (40-110); Anion Gap 14 mmol/L (10-20); BUN (Urea Nitrogen) 22 mg/dL (8.4-25.7); Bilirubin, Total 0.4 mg/dL (0.2-1.2); Calc. Creatinine Clearance 0 mL/min (70-130); Calcium 8.7 mg/dL (7.8-10.44); Carbon Dioxide 25 mmol/L (23-31); Chloride 103 mmol/L (98-107); Globulin 2.5 g/dL (2.4-3.5); Glucose 106 mg/dL (83-110); Potassium 4.9 mmol/L (3.5-5.1); Protein, Total 5.7 g/dL (5.8-8.1); Sodium 137 mmol/L (136-145)
[2021-04-22] MEDS ORDERED: Azithromycin 500 MG VIAL ONE (00:42)
[2021-04-22] MEDS ORDERED: Ondansetron ODT 4 MG TAB SL PRN (02:15)
[2021-04-22] MEDS ORDERED: Acetaminophen 325 MG TAB PO PRN (02:15)
[2021-04-22] MEDS ORDERED: Ondansetron PF 4 MG/2 ML Vial IVP PRN (02:15)
[2021-04-22] MEDS ORDERED: Guaifenesin DM 100-10/5 ML UDCUP PO PRN (08:19)
[2021-04-22] MEDS ORDERED: Cholecalciferol (Vitamin D3) 400 UNITS TAB PO SCH (09:00)
[2021-04-22] MEDS ORDERED: Non-Formulary Item 1 EACH (Cyanocobalamin (Vitamin B-12) [Vitamin B12] 5,000 MCG Tab.Rapd PO SCH (09:00)
[2021-04-22] MEDS: Dexamethasone 4 mg/ml Vial SLOW IVP SCH (10:41)
[2021-04-22] MEDS: Enoxaparin Sodium 40 MG/0.4 ML SYRINGE SC SCH ×2 (10:41→21:29)
[2021-04-22] MEDS ORDERED: hydrALAZINE 20 MG/ML VIAL SLOW IVP PRN (11:10)
[2021-04-22] MEDS ORDERED: REMDESIVIR 200 MG in Sodium Chloride 0.9% 250 ML 210 ML IV SCH (11:15)
[2021-04-22] MEDS: Lorazepam 2 MG/ML VIAL SLOW IVP PRN (11:26)
[2021-04-22] MEDS ORDERED: Iopamidol-370 76% 500 ML 1 ML ONE (11:56)
[2021-04-22] MEDS: Amlodipine 10 MG TAB PO SCH (12:03)
[2021-04-22] MEDS: Ascorbic Acid 500 mg Chewable Tablet PO SCH (12:03)
[2021-04-22] MEDS: Aspirin 81 mg Enteric Coated Tablet PO SCH (12:04)
[2021-04-22] MEDS: Cholecalciferol 1,000 UNITS (25 MCG) TAB PO SCH (12:05)
[2021-04-22] MEDS: Lisinopril 5 MG TAB PO SCH (12:05)
[2021-04-22] MEDS: Atenolol 25 MG TAB PO SCH ×2 (12:05→21:24)
[2021-04-22] MEDS: Cyanocobalamin (Vitamin B-12) 1,000 MCG TAB PO SCH (12:05)
[2021-04-22] MEDS: Zinc Sulfate 220 MG CAP PO SCH (12:06)
[2021-04-22 13:27] LABS: SARS-CoV-2 PCR by NAA DETECTED (NotDetected)
[2021-04-22] MEDS ORDERED: FLU VACC QS2021-22(65YR UP)/PF 240 MCG/0.7 ML SYRINGE IM ONE (14:00)
[2021-04-22] MEDS: Albuterol 200 PUFF (6.7GM INHALER) INH SCH (19:32)
[2021-04-22] MEDS ORDERED: Non-Formulary Item 1 EACH (Melatonin [Melatonin] 5 MG Capsule) PO SCH (21:00)
[2021-04-22] MEDS: Finasteride 5 MG TAB PO SCH (21:24)
[2021-04-22] MEDS: Melatonin 3 MG TAB PO SCH (21:24)
[2021-04-22] MEDS: traMADol HCl 50 MG TAB PO PRN (21:25)
[2021-04-22] MEDS: Tamsulosin HCl 0.4 MG CAP PO SCH (21:25)
[2021-04-23] MEDS: Albuterol 200 PUFF (6.7GM INHALER) INH SCH ×3 (06:32→18:43)
[2021-04-23 06:43] LABS: Band 6 % (5-11); Lymphocytes 26 % (21-51); MDiff Complete? YES; Mean Corpuscular HGB CONC 32.1 g/dL (32.0-36.0); Mean Corpuscular Hemoglobin 31.4 pg (27.0-31.0); Mean Platelet Volume 7.2 fL (7.4-10.4); Monocytes 7 % (0-10); Neutrophil 61 % (42-75); Platelet Count 179 thou/uL (130-400); RBC Distribution Width 13.4 % (11.5-14.5); Red Blood Cell (RBC) Count 3.81 mill/uL (4.70-6.10); White Blood Cell (WBC) Count 3.8 thou/uL (4.8-10.8)
[2021-04-23 08:42] LABS: ALT (SGPT) Less than 7 U/L (8-55); AST (SGOT) 10 U/L (5-34); Albumin 3.4 g/dL (3.4-4.8); Alkaline Phosphatase 63 U/L (40-110); Anion Gap 13 mmol/L (10-20); BUN (Urea Nitrogen) 21 mg/dL (8.4-25.7); Bilirubin, Total 0.4 mg/dL (0.2-1.2); Calc. Creatinine Clearance 75 mL/min (70-130); Calcium 9.4 mg/dL (7.8-10.44); Carbon Dioxide 26 mmol/L (23-31); Chloride 105 mmol/L (98-107); Globulin 3.2 g/dL (2.4-3.5); Glucose 109 mg/dL (83-110); Potassium 4.8 mmol/L (3.5-5.1); Protein, Total 6.6 g/dL (5.8-8.1); Sodium 139 mmol/L (136-145)
[2021-04-23] MEDS: Enoxaparin Sodium 40 MG/0.4 ML SYRINGE SC SCH ×2 (10:35→21:24)
[2021-04-23] MEDS: Atenolol 25 MG TAB PO SCH ×2 (10:35→21:25)
[2021-04-23] MEDS: Lisinopril 5 MG TAB PO SCH (10:36)
[2021-04-23] MEDS: Cyanocobalamin (Vitamin B-12) 1,000 MCG TAB PO SCH ×2 (10:36→12:20)
[2021-04-23] MEDS: Aspirin 81 mg Enteric Coated Tablet PO SCH (10:36)
[2021-04-23] MEDS: Ascorbic Acid 500 mg Chewable Tablet PO SCH (10:37)
[2021-04-23] MEDS: Amlodipine 10 MG TAB PO SCH (10:37)
[2021-04-23] MEDS: Dexamethasone 4 mg/ml Vial SLOW IVP SCH (10:37)
[2021-04-23] MEDS: Cholecalciferol 1,000 UNITS (25 MCG) TAB PO SCH ×3 (10:37→14:50)
[2021-04-23] MEDS: Zinc Sulfate 220 MG CAP PO SCH (10:37)
[2021-04-23] MEDS: REMDESIVIR 100 MG in Sodium Chloride 0.9% 250 ML 230 ML IV SCH (10:38)
[2021-04-23] MEDS: Lorazepam 1 MG TAB PO PRN (21:24)
[2021-04-23] MEDS: Tamsulosin HCl 0.4 MG CAP PO SCH (21:25)
[2021-04-23] MEDS: Finasteride 5 MG TAB PO SCH (21:25)
[2021-04-23] MEDS: Melatonin 3 MG TAB PO SCH (21:25)
[2021-04-23] MEDS: traMADol HCl 50 MG TAB PO PRN (21:41)
[2021-04-24] MEDS: Lorazepam 2 MG/ML VIAL SLOW IVP PRN ×2 (00:10→21:05)
[2021-04-24 06:44] LABS: Anion Gap 15 mmol/L (10-20); BUN (Urea Nitrogen) 25 mg/dL (8.4-25.7); CRP (Inflammatory) 3.26 mg/dL (= or < 0.5); Calc. Creatinine Clearance 74 mL/min (70-130); Calcium 9.5 mg/dL (7.8-10.44); Carbon Dioxide 22 mmol/L (23-31); Chloride 107 mmol/L (98-107); Glucose 131 mg/dL (83-110); Potassium 4.8 mmol/L (3.5-5.1); Sodium 139 mmol/L (136-145)
[2021-04-24] MEDS: Albuterol 200 PUFF (6.7GM INHALER) INH SCH ×3 (07:11→18:20)
[2021-04-24] MEDS ORDERED: Cyanocobalamin 1000 MCG/ML VIAL IM SCH (09:00)
[2021-04-24] MEDS: Atenolol 25 MG TAB PO SCH ×2 (11:07→22:45)
[2021-04-24] MEDS: Cholecalciferol 1,000 UNITS (25 MCG) TAB PO SCH (11:07)
[2021-04-24] MEDS: Amlodipine 10 MG TAB PO SCH (11:07)
[2021-04-24] MEDS: Aspirin 81 mg Enteric Coated Tablet PO SCH (11:08)
[2021-04-24] MEDS: Lisinopril 5 MG TAB PO SCH (11:08)
[2021-04-24] MEDS: Lorazepam 1 MG TAB PO PRN (11:08)
[2021-04-24] MEDS: Ascorbic Acid 500 mg Chewable Tablet PO SCH (11:08)
[2021-04-24] MEDS: Dexamethasone 4 mg/ml Vial SLOW IVP SCH (11:09)
[2021-04-24] MEDS: Zinc Sulfate 220 MG CAP PO SCH (11:09)
[2021-04-24] MEDS: Enoxaparin Sodium 40 MG/0.4 ML SYRINGE SC SCH ×2 (11:10→22:45)
[2021-04-24] MEDS: REMDESIVIR 100 MG in Sodium Chloride 0.9% 250 ML 230 ML IV SCH (11:10)
[2021-04-24] MEDS ORDERED: hydrALAZINE 25 MG TAB PO PRN (11:35)
[2021-04-24] MEDS: traMADol HCl 50 MG TAB PO PRN ×2 (13:22→22:46)
[2021-04-24] MEDS: Melatonin 3 MG TAB PO SCH (22:45)
[2021-04-24] MEDS ORDERED: Lithium Carbonate 150 MG CAP PO SCH (22:45)
[2021-04-24] MEDS: Finasteride 5 MG TAB PO SCH (22:46)
[2021-04-24] MEDS: Tamsulosin HCl 0.4 MG CAP PO SCH (22:46)
[2021-04-25] MEDS: Lorazepam 2 MG/ML VIAL SLOW IVP PRN ×2 (02:35→09:30)
[2021-04-25] MEDS: Albuterol 200 PUFF (6.7GM INHALER) INH SCH (06:02)
[2021-04-25] MEDS ORDERED: Lithium Carbonate 150 MG CAP PO SCH (09:00)
[2021-04-25 09:15] VITALS: BP 125/66; TEMP 97.5
[2021-04-25] MEDS: REMDESIVIR 100 MG in Sodium Chloride 0.9% 250 ML 230 ML IV SCH (09:15)
[2021-04-25] MEDS: Enoxaparin Sodium 40 MG/0.4 ML SYRINGE SC SCH (09:15)
[2021-04-25] MEDS: Cholecalciferol 1,000 UNITS (25 MCG) TAB PO SCH (09:15)
[2021-04-25] MEDS: Zinc Sulfate 220 MG CAP PO SCH (09:16)
[2021-04-25] MEDS: Ascorbic Acid 500 mg Chewable Tablet PO SCH (09:16)
[2021-04-25] MEDS: Lisinopril 5 MG TAB PO SCH (09:16)
[2021-04-25] MEDS: Atenolol 25 MG TAB PO SCH (09:16)
[2021-04-25] MEDS: Aspirin 81 mg Enteric Coated Tablet PO SCH (09:16)
[2021-04-25] MEDS: Amlodipine 10 MG TAB PO SCH (09:16)
[2021-04-25] MEDS: Dexamethasone 4 mg/ml Vial SLOW IVP SCH (09:17)
[2021-04-25 10:05] LABS: Anion Gap 14 mmol/L (10-20); BUN (Urea Nitrogen) 25 mg/dL (8.4-25.7); CRP (Inflammatory) 1.61 mg/dL (= or < 0.5); Calc. Creatinine Clearance 70 mL/min (70-130); Calcium 10.2 mg/dL (7.8-10.44); Carbon Dioxide 25 mmol/L (23-31); Chloride 108 mmol/L (98-107); Glucose 113 mg/dL (83-110); Potassium 4.7 mmol/L (3.5-5.1); Sodium 142 mmol/L (136-145)
[2021-04-25] MEDS ORDERED: Ziprasidone 20 MG VIAL IM PRN (11:12)
[2021-04-25 11:13] VITALS: BMI 26.9
== END 2021-04-25 13:42 | DRG 177 ==
LOC: ERS 22:28 → ERHOLD 04-22 02:07 → 2SW 04-22 03:12 → T4-A 04-24 20:20
PROVIDERS: ADMIT Student in an Organized Health Care Education/Training Program; ATTEND Internal Medicine
PROC: 8E0ZXY6 Isolation (ICD-10-PCS; principal; 2021-04-22)
PROC: XW033E5 Introduction of Remdesivir Anti-infective into Peripheral Vein, Percutaneous Approach, New Technology Group 5 (ICD-10-PCS; 2021-04-22)
PROC: 3E0333Z Introduction of Anti-inflammatory into Peripheral Vein, Percutaneous Approach (ICD-10-PCS; 2021-04-22)
DX: U07.1 COVID-19 (principal); J12.82 Pneumonia due to coronavirus disease 2019; G93.41 Metabolic encephalopathy; J44.0 Chronic obstructive pulmonary disease with (acute) lower respiratory infection; I10 Essential (primary) hypertension; F31.9 Bipolar disorder, unspecified; I48.0 Paroxysmal atrial fibrillation; M19.90 Unspecified osteoarthritis, unspecified site; N40.1 Benign prostatic hyperplasia with lower urinary tract symptoms; R33.8 Other retention of urine; G30.9 Alzheimer's disease, unspecified; F02.80 Dementia in other diseases classified elsewhere, unspecified severity, without behavioral disturbance, psychotic disturbance, mood disturbance, and anxiety; Z79.51 Long term (current) use of inhaled steroids; Z79.899 Other long term (current) drug therapy
CPT/HCPCS: 36415; 71045; 71275; 80048; 80053; 83880; 84484; 85007; 85025; 85027; 85379; 86140; 87040; 93005; J0248; J0360; J0456; J0696; J1100; J1650; J2060; J3420; J7050; Q9967; U0003; U0005

== ENCOUNTER 2021-04-29 02:02 | Inpatient (IN) | payer MEDICARE ==
[2021-04-29 02:48] LABS: #Lymphocytes 0.8 thou/uL (1.20-3.40); #Monocytes 1.2 thou/uL (0.11-0.59); #Neutrophils 10.3 thou/uL (1.40-6.50); %Eosinophils 0.4 % (0.0-10.0); %Lymphocytes 6.4 % (21.0-51.0); %Monocytes 9.5 % (0.0-10.0); %Neutrophils 83.8 % (42.0-75.0); Mean Corpuscular HGB CONC 31.3 g/dL (32.0-36.0); Mean Corpuscular Hemoglobin 31.5 pg (27.0-31.0); Mean Platelet Volume 7.7 fL (7.4-10.4); Platelet Count 285 thou/uL (130-400); RBC Distribution Width 14.3 % (11.5-14.5); White Blood Cell (WBC) Count 12.3 thou/uL (4.8-10.8)
[2021-04-29] MEDS ORDERED: Haloperidol Lactate 5 MG/ML VIAL ONE ×2 (02:51→05:00)
[2021-04-29 03:12] LABS: ALT (SGPT) 14 U/L (8-55); AST (SGOT) 10 U/L (5-34); Alkaline Phosphatase 64 U/L (40-110); Anion Gap 12 mmol/L (10-20); BUN (Urea Nitrogen) 84 mg/dL (8.4-25.7); Bilirubin, Total 0.7 mg/dL (0.2-1.2); Calc. Creatinine Clearance 0 mL/min (70-130); Calcium 9.1 mg/dL (7.8-10.44); Carbon Dioxide 24 mmol/L (23-31); Chloride 120 mmol/L (98-107); Globulin 2.9 g/dL (2.4-3.5); Glucose 133 mg/dL (83-110); Protein, Total 5.9 g/dL (5.8-8.1); Sodium 152 mmol/L (136-145)
[2021-04-29] MEDS ORDERED: Cefepime 2 GM VIAL ONE (03:29)
[2021-04-29 03:46] LABS: CKMB 2.6 ng/mL (0-6.6)
[2021-04-29] MEDS ORDERED: Acetaminophen 325 MG TAB PO PRN (06:08)
[2021-04-29] MEDS ORDERED: Albuterol Sulfate 2.5 mg/3 ml Neb NEB PRN (06:15)
[2021-04-29] MEDS ORDERED: Pharmacy to Dose VANC AND CEFEPIME IVPB PRN (06:53)
[2021-04-29] MEDS: Dextrose 5 %-0.45 % NaCl 1,000 ML IV SCH ×2 (08:07→15:51)
[2021-04-29 08:08] LABS: Troponin I 0.033 ng/mL (< 0.028)
[2021-04-29] MEDS: Heparin 5,000 UNITS/ML VIAL SC SCH ×2 (08:08→21:28)
[2021-04-29] MEDS: Dexamethasone 10 MG/ML VIAL SLOW IVP SCH ×2 (08:08→21:28)
[2021-04-29] MEDS: Vancomycin 1 GM in Premix Bag 1 BAG IVPB SCH (08:15)
[2021-04-29 08:50] LABS: Bacteria/HPF 3+ HPF (None Seen); Bilirubin Negative (Negative); Blood, Urine Negative (Negative); Clarity Clear (Clear); Glucose, Urine (Dipstick) Normal (Negative); Ketone, Urine Negative (Negative); Leukocyte 500 Leu/uL (Negative); Nitrite Negative (Negative); Protein, Urine (Dipstick) 20 mg/dL (Neg-Trace); RBC/HPF 0-3 HPF (0-3); Specific Gravity, Urine 1.014 (1.002-1.036); Squamous Epithelial 0-3 HPF (0-3); Urobilinogen Normal mg/dL (Less than 2); WBC/HPF 21-50 HPF (0-3); pH, Urine 5.5 (5.0-9.0)
[2021-04-29 08:52] LABS: Urine Culture Reflex Yes Yes
[2021-04-29] MEDS ORDERED: Famotidine 20 MG TAB PO SCH (09:00)
[2021-04-29 09:42] LABS: Troponin I 0.042 ng/mL (< 0.028)
[2021-04-29] MEDS ORDERED: Pantoprazole 40 MG VIAL IVP SCH (10:45)
[2021-04-29] MEDS ORDERED: Lorazepam 2 MG/ML VIAL SLOW IVP SCH (15:30)
[2021-04-29] MEDS ORDERED: Lorazepam 1 MG TAB PO PRN (15:47)
[2021-04-29] MEDS ORDERED: Lorazepam 2 MG/ML VIAL ONE (15:48)
[2021-04-29 22:52] LABS: Anion Gap 16 mmol/L (10-20); BUN (Urea Nitrogen) 62 mg/dL (8.4-25.7); Calc. Creatinine Clearance 42 mL/min (70-130); Calcium 9.1 mg/dL (7.8-10.44); Carbon Dioxide 20 mmol/L (23-31); Glucose 215 mg/dL (83-110); Potassium 4.9 mmol/L (3.5-5.1); Sodium 157 mmol/L (136-145)
[2021-04-29 22:55] LABS: Chloride 126 mmol/L (98-107)
[2021-04-30] MEDS: Dextrose 5% in Water 1,000 ML IV SCH ×4 (03:00→19:24)
[2021-04-30 05:43] LABS: Hemoglobin 12.3 g/dL (14.0-18.0); Lymphocytes 5 % (21-51); MDiff Complete? YES; Mean Corpuscular HGB CONC 30.7 g/dL (32.0-36.0); Mean Corpuscular Hemoglobin 31.1 pg (27.0-31.0); Monocytes 2 % (0-10); Neutrophil 93 % (42-75); Platelet Count 248 thou/uL (130-400); Platelet Morphology Comment Appears Adequate; RBC Distribution Width 14.3 % (11.5-14.5); Red Blood Cell (RBC) Count 3.94 mill/uL (4.70-6.10); White Blood Cell (WBC) Count 9.8 thou/uL (4.8-10.8)
[2021-04-30 05:47] LABS: Anion Gap 13 mmol/L (10-20); BUN (Urea Nitrogen) 58 mg/dL (8.4-25.7); CRP (Inflammatory) 2.62 mg/dL (= or < 0.5); Calc. Creatinine Clearance 46 mL/min (70-130); Calcium 9.2 mg/dL (7.8-10.44); Carbon Dioxide 24 mmol/L (23-31); Chloride 124 mmol/L (98-107); Glucose 207 mg/dL (83-110); Potassium 4.2 mmol/L (3.5-5.1); Sodium 157 mmol/L (136-145)
[2021-04-30] MEDS ORDERED: FLU VACC QS2021-22(65YR UP)/PF 240 MCG/0.7 ML SYRINGE IM ONE (07:00)
[2021-04-30] MEDS: Vancomycin 1 GM in Premix Bag 1 BAG IVPB SCH (08:16)
[2021-04-30] MEDS: Heparin 5,000 UNITS/ML VIAL SC SCH (08:16)
[2021-04-30] MEDS: Dexamethasone 10 MG/ML VIAL SLOW IVP SCH ×2 (08:16→21:43)
[2021-04-30] MEDS: Pantoprazole 40 MG VIAL IVP SCH (08:17)
[2021-04-30] MEDS ORDERED: Famotidine 20 MG TAB PO SCH (09:00)
[2021-04-30] MEDS: Lorazepam 2 MG/ML VIAL SLOW IVP PRN ×2 (13:07→21:43)
[2021-04-30 14:47] LABS: Anion Gap 10 mmol/L (10-20); BUN (Urea Nitrogen) 50 mg/dL (8.4-25.7); Calc. Creatinine Clearance 51 mL/min (70-130); Calcium 9.2 mg/dL (7.8-10.44); Carbon Dioxide 24 mmol/L (23-31); Chloride 123 mmol/L (98-107); Glucose 184 mg/dL (83-110); Potassium 4.2 mmol/L (3.5-5.1); Sodium 153 mmol/L (136-145)
[2021-05-01] MEDS: Lorazepam 2 MG/ML VIAL SLOW IVP PRN ×2 (01:58→06:29)
[2021-05-01] MEDS: Dextrose 5% in Water 1,000 ML IV SCH ×4 (02:14→19:47)
[2021-05-01] MEDS ORDERED: Cefepime 0.5 GM, Admixture Fee 1 EACH in Sodium Chloride 0.9% 100 ML IVPB SCH (04:00)
[2021-05-01 08:31] LABS: Hemoglobin 12.8 g/dL (14.0-18.0); Mean Corpuscular HGB CONC 31.2 g/dL (32.0-36.0); Mean Corpuscular Hemoglobin 31.3 pg (27.0-31.0); Mean Platelet Volume 8.4 fL (7.4-10.4); Platelet Count 185 thou/uL (130-400); RBC Distribution Width 14.1 % (11.5-14.5); Red Blood Cell (RBC) Count 4.09 mill/uL (4.70-6.10); White Blood Cell (WBC) Count 10.7 thou/uL (4.8-10.8)
[2021-05-01 08:53] LABS: Anion Gap 14 mmol/L (10-20); BUN (Urea Nitrogen) 42 mg/dL (8.4-25.7); CRP (Inflammatory) 1.02 mg/dL (= or < 0.5); Calc. Creatinine Clearance 55 mL/min (70-130); Calcium 9.7 mg/dL (7.8-10.44); Carbon Dioxide 20 mmol/L (23-31); Chloride 120 mmol/L (98-107); Glucose 238 mg/dL (83-110); Potassium 4.7 mmol/L (3.5-5.1); Sodium 149 mmol/L (136-145)
[2021-05-01 08:57] LABS: Vancomycin, Trough 7.3 ug/mL
[2021-05-01 09:16] LABS: Band 10 % (5-11); Lymphocytes 4 % (21-51); MDiff Complete? YES; Macrocytosis SLIGHT = 6-15 cells (100X) (0-5/hpf); Monocytes 4 % (0-10); Neutrophil 82 % (42-75); Platelet Morphology Comment Appears Adequate
[2021-05-01] MEDS: Dexamethasone 10 MG/ML VIAL SLOW IVP SCH ×2 (09:33→21:12)
[2021-05-01] MEDS: Enoxaparin Sodium 40 MG/0.4 ML SYRINGE SC SCH (09:36)
[2021-05-01] MEDS: Pantoprazole 40 MG VIAL IVP SCH (09:37)
[2021-05-01] MEDS: Vancomycin 1 GM in Premix Bag 1 BAG IVPB SCH (09:40)
[2021-05-01] MEDS ORDERED: Metoprolol Tartrate 5 MG/5 ML VIAL IVP PRN (15:20)
[2021-05-01] MEDS: Cefepime 2 GM in Sodium Chloride 0.9% 100 ML IVPB SCH (16:40)
[2021-05-01] MEDS ORDERED: Morphine 4 MG/ML VIAL SLOW IVP SCH (20:45)
[2021-05-02] MEDS: Lorazepam 2 MG/ML VIAL SLOW IVP PRN ×3 (04:16→16:00)
[2021-05-02] MEDS: Cefepime 2 GM in Sodium Chloride 0.9% 100 ML IVPB SCH ×2 (04:17→16:01)
[2021-05-02] MEDS: Dextrose 5% in Water 1,000 ML IV SCH (04:22)
[2021-05-02 05:27] LABS: #Lymphocytes 0.5 thou/uL (1.20-3.40); #Monocytes 0.3 thou/uL (0.11-0.59); #Neutrophils 8.7 thou/uL (1.40-6.50); %Eosinophils 0.2 % (0.0-10.0); %Lymphocytes 5.7 % (21.0-51.0); %Neutrophils 91.1 % (42.0-75.0); Hemoglobin 12.7 g/dL (14.0-18.0); Mean Corpuscular HGB CONC 30.7 g/dL (32.0-36.0); Mean Platelet Volume 8.1 fL (7.4-10.4); Platelet Count 237 thou/uL (130-400); RBC Distribution Width 13.8 % (11.5-14.5); Red Blood Cell (RBC) Count 4.24 mill/uL (4.70-6.10); White Blood Cell (WBC) Count 9.5 thou/uL (4.8-10.8)
[2021-05-02 05:38] LABS: Anion Gap 9 mmol/L (10-20); BUN (Urea Nitrogen) 34 mg/dL (8.4-25.7); Calc. Creatinine Clearance 64 mL/min (70-130); Calcium 9.8 mg/dL (7.8-10.44); Carbon Dioxide 27 mmol/L (23-31); Chloride 115 mmol/L (98-107); Glucose 223 mg/dL (83-110); Potassium 4.1 mmol/L (3.5-5.1); Sodium 147 mmol/L (136-145)
[2021-05-02] MEDS: Vancomycin 1 GM in Premix Bag 1 BAG IVPB SCH (08:58)
[2021-05-02] MEDS: Pantoprazole 40 MG VIAL IVP SCH (08:59)
[2021-05-02] MEDS: Enoxaparin Sodium 40 MG/0.4 ML SYRINGE SC SCH (08:59)
[2021-05-02] MEDS: Dexamethasone 10 MG/ML VIAL SLOW IVP SCH (09:00)
[2021-05-02 10:23] LABS: Vancomycin, Trough 36.1 ug/mL
[2021-05-02] MEDS ORDERED: Diltiazem 125 MG in Sodium Chloride 0.9% 100 ML IVPB SCH (14:30)
[2021-05-02] MEDS ORDERED: diphenhydrAMINE 50 MG/ML VIAL ONE (19:20)
[2021-05-02] MEDS ORDERED: Famotidine/PF 20 mg/2ml Vial SLOW IVP SCH (19:45)
[2021-05-02] MEDS ORDERED: methylPREDNISolone Sod Succ/PF 125 MG/2 ML VIAL IVP SCH (19:45)
[2021-05-03] MEDS: Dextrose 5% in Water 1,000 ML IV SCH ×4 (00:45→20:52)
[2021-05-03] MEDS: Cefepime 2 GM in Sodium Chloride 0.9% 100 ML IVPB SCH ×2 (04:27→17:30)
[2021-05-03 05:23] LABS: Anion Gap 9 mmol/L (10-20); BUN (Urea Nitrogen) 37 mg/dL (8.4-25.7); Calc. Creatinine Clearance 58 mL/min (70-130); Calcium 9.6 mg/dL (7.8-10.44); Carbon Dioxide 28 mmol/L (23-31); Chloride 115 mmol/L (98-107); Glucose 261 mg/dL (83-110); Magnesium 2.2 mg/dL (1.6-2.6); Potassium 4.1 mmol/L (3.5-5.1); Sodium 148 mmol/L (136-145)
[2021-05-03] MEDS: Pantoprazole 40 MG VIAL IVP SCH (08:31)
[2021-05-03] MEDS: Enoxaparin Sodium 40 MG/0.4 ML SYRINGE SC SCH (08:31)
[2021-05-03] MEDS: Dexamethasone 10 MG/ML VIAL SLOW IVP SCH ×2 (08:31→20:47)
[2021-05-03 11:27] LABS: Vancomycin, Trough 9.4 ug/mL
[2021-05-03] MEDS: Lorazepam 2 MG/ML VIAL SLOW IVP PRN ×2 (12:41→22:39)
[2021-05-03] MEDS: Vancomycin 1 GM in Premix Bag 1 BAG IVPB SCH ×2 (12:48→13:28)
[2021-05-04] MEDS: Vancomycin 1 GM in Premix Bag 1 BAG IVPB SCH ×2 (01:40→14:14)
[2021-05-04] MEDS: Dextrose 5% in Water 1,000 ML IV SCH ×2 (01:44→15:09)
[2021-05-04] MEDS: Cefepime 2 GM in Sodium Chloride 0.9% 100 ML IVPB SCH ×2 (04:52→16:17)
[2021-05-04 08:52] LABS: #Lymphocytes 0.6 thou/uL (1.20-3.40); #Monocytes 0.7 thou/uL (0.11-0.59); %Basophils 0.2 % (0.0-1.0); %Eosinophils 0.2 % (0.0-10.0); %Lymphocytes 4.9 % (21.0-51.0); %Neutrophils 88.8 % (42.0-75.0); Hemoglobin 12.8 g/dL (14.0-18.0); Mean Corpuscular HGB CONC 31.8 g/dL (32.0-36.0); Mean Corpuscular Hemoglobin 31.3 pg (27.0-31.0); Mean Corpuscular Volume 98.6 fL (78.0-98.0); Mean Platelet Volume 8.3 fL (7.4-10.4); Platelet Count 201 thou/uL (130-400); RBC Distribution Width 13.6 % (11.5-14.5); Red Blood Cell (RBC) Count 4.09 mill/uL (4.70-6.10); White Blood Cell (WBC) Count 12.3 thou/uL (4.8-10.8)
[2021-05-04] MEDS ORDERED: Dextrose 5% in Water 1,000 ML IV PRN (09:06)
[2021-05-04] MEDS ORDERED: Dextrose 50% Abboject 50 ML SYRINGE SLOW IVP PRN (09:06)
[2021-05-04] MEDS ORDERED: HumaLOG 300 UNITS/3 ML VIAL SC PRN (09:06)
[2021-05-04 09:09] LABS: Anion Gap 12 mmol/L (10-20); BUN (Urea Nitrogen) 37 mg/dL (8.4-25.7); Calc. Creatinine Clearance 63 mL/min (70-130); Calcium 9.4 mg/dL (7.8-10.44); Carbon Dioxide 25 mmol/L (23-31); Chloride 112 mmol/L (98-107); Glucose 223 mg/dL (83-110); Potassium 4.3 mmol/L (3.5-5.1); Sodium 145 mmol/L (136-145)
[2021-05-04 09:12] LABS: Actual Bicarbonate (HCO3a) 28.4 mEq/L (22-28); Calcium, Ionized (arterial) 1.29 mmol/L (1.12-1.30); Carboxyhemoglobin (COHb) 0.2 gm% (0.0-3.0); Hemoglobin (Hb) 12.3 g/dL (14.0-18.0); O2 Tension (PaO2), arterial 85.7 mmHg (> 60.0)
[2021-05-04 09:21] LABS: Puncture Site RBA
[2021-05-04] MEDS: Dexamethasone 10 MG/ML VIAL SLOW IVP SCH (09:27)
[2021-05-04] MEDS ORDERED: Esmolol 2,500 MG/250 ML 250 ML IVPB SCH (10:00)
[2021-05-04] MEDS ORDERED: Pharmacy to Dose REMDESIVIR IVPB PRN (10:00)
[2021-05-04] MEDS: Pantoprazole 40 MG VIAL IVP SCH (11:07)
[2021-05-04] MEDS: Enoxaparin Sodium 40 MG/0.4 ML SYRINGE SC SCH (11:07)
[2021-05-04 12:21] LABS: Vancomycin, Trough 16.3 ug/mL
[2021-05-05] MEDS: Vancomycin 1 GM in Premix Bag 1 BAG IVPB SCH ×2 (01:42→13:05)
[2021-05-05] MEDS: Cefepime 2 GM in Sodium Chloride 0.9% 100 ML IVPB SCH (03:57)
[2021-05-05] MEDS: Dextrose 5% in Water 1,000 ML IV SCH (03:57)
[2021-05-05 04:53] LABS: #Lymphocytes 0.9 thou/uL (1.20-3.40); #Neutrophils 9.9 thou/uL (1.40-6.50); %Eosinophils 0.4 % (0.0-10.0); %Lymphocytes 7.7 % (21.0-51.0); %Monocytes 8.1 % (0.0-10.0); %Neutrophils 83.9 % (42.0-75.0); Hemoglobin 12.6 g/dL (14.0-18.0); Mean Corpuscular HGB CONC 33.3 g/dL (32.0-36.0); Mean Corpuscular Hemoglobin 32.1 pg (27.0-31.0); Mean Corpuscular Volume 96.5 fL (78.0-98.0); Mean Platelet Volume 8.6 fL (7.4-10.4); Platelet Count 155 thou/uL (130-400); RBC Distribution Width 13.6 % (11.5-14.5); Red Blood Cell (RBC) Count 3.92 mill/uL (4.70-6.10); White Blood Cell (WBC) Count 11.8 thou/uL (4.8-10.8)
[2021-05-05 05:13] LABS: Anion Gap 10 mmol/L (10-20); BUN (Urea Nitrogen) 31 mg/dL (8.4-25.7); Calc. Creatinine Clearance 0 mL/min (70-130); Carbon Dioxide 26 mmol/L (23-31); Chloride 110 mmol/L (98-107); Glucose 149 mg/dL (83-110); Potassium 3.6 mmol/L (3.5-5.1); Sodium 142 mmol/L (136-145)
[2021-05-05] MEDS: Pantoprazole 40 MG VIAL IVP SCH (08:57)
[2021-05-05] MEDS: Enoxaparin Sodium 40 MG/0.4 ML SYRINGE SC SCH (08:57)
[2021-05-05] MEDS: Dexamethasone 10 MG/ML VIAL SLOW IVP SCH (08:58)
[2021-05-05] MEDS ORDERED: Lactated Ringer's 1,000 ML IV SCH (10:30)
[2021-05-05] MEDS: Lactated Ringer's 1,000 ML IV SCH (13:05)
[2021-05-05] MEDS: cefTRIAXone\\ROCEPHIN 1 GM in Sodium Chloride 0.9% 100 ML IVPB SCH (16:06)
[2021-05-06] MEDS: Lactated Ringer's 1,000 ML IV SCH ×3 (00:23→17:28)
[2021-05-06] MEDS: Vancomycin 1 GM in Premix Bag 1 BAG IVPB SCH ×2 (00:23→14:40)
[2021-05-06 05:01] LABS: #Lymphocytes 0.7 thou/uL (1.20-3.40); #Monocytes 0.8 thou/uL (0.11-0.59); %Basophils 0.1 % (0.0-1.0); %Eosinophils 0.3 % (0.0-10.0); %Lymphocytes 6.3 % (21.0-51.0); %Monocytes 7.2 % (0.0-10.0); %Neutrophils 86.1 % (42.0-75.0); Hemoglobin 11.3 g/dL (14.0-18.0); Mean Corpuscular HGB CONC 32.3 g/dL (32.0-36.0); Mean Corpuscular Hemoglobin 31.8 pg (27.0-31.0); Mean Corpuscular Volume 98.3 fL (78.0-98.0); Platelet Count 131 thou/uL (130-400); RBC Distribution Width 13.7 % (11.5-14.5); Red Blood Cell (RBC) Count 3.54 mill/uL (4.70-6.10); White Blood Cell (WBC) Count 10.5 thou/uL (4.8-10.8)
[2021-05-06 05:21] LABS: Anion Gap 10 mmol/L (10-20); BUN (Urea Nitrogen) 32 mg/dL (8.4-25.7); Calc. Creatinine Clearance 74 mL/min (70-130); Calcium 8.7 mg/dL (7.8-10.44); Carbon Dioxide 26 mmol/L (23-31); Chloride 111 mmol/L (98-107); Glucose 110 mg/dL (83-110); Potassium 3.7 mmol/L (3.5-5.1); Sodium 143 mmol/L (136-145)
[2021-05-06] MEDS: Enoxaparin Sodium 40 MG/0.4 ML SYRINGE SC SCH (08:28)
[2021-05-06] MEDS: Pantoprazole 40 MG VIAL IVP SCH (08:28)
[2021-05-06] MEDS: Dexamethasone 10 MG/ML VIAL SLOW IVP SCH (08:28)
[2021-05-06] MEDS ORDERED: PHENYLEPHRINE-NS 100 MCG/ML 10 ML SYRINGE ONE (11:43)
[2021-05-06] MEDS ORDERED: PROPOFOL 200 MG/20 ML VIAL ONE (11:43)
[2021-05-06] MEDS ORDERED: Lidocaine 1% PF 5 ML VIAL ONE (11:43)
[2021-05-06] MEDS: Lorazepam 2 MG/ML VIAL SLOW IVP PRN (14:39)
[2021-05-06] MEDS ORDERED: Lactated Ringer's 500 ML IV SCH ×3 (16:00)
[2021-05-06] MEDS: cefTRIAXone\\ROCEPHIN 1 GM in Sodium Chloride 0.9% 100 ML IVPB SCH (17:27)
[2021-05-06 18:16] LABS: Hemoglobin 11.2 g/dL (14.0-18.0)
[2021-05-06] MEDS ORDERED: Divalproex Sodium 125 mg Sprinkle Capsule PER TUBE SCH (21:00)
[2021-05-06] MEDS: Atenolol 25 MG TAB PER TUBE SCH (22:29)
[2021-05-06] MEDS: Divalproex Sodium 125 mg Sprinkle Capsule PER TUBE SCH (22:30)
[2021-05-06] MEDS: Finasteride 5 MG TAB PO SCH (22:30)
[2021-05-06] MEDS: Tamsulosin HCl 0.4 MG CAP PO SCH (22:31)
[2021-05-07] MEDS: Vancomycin 1 GM in Premix Bag 1 BAG IVPB SCH ×2 (02:32→13:59)
[2021-05-07] MEDS: Lactated Ringer's 1,000 ML IV SCH (02:34)
[2021-05-07 05:29] LABS: Anion Gap 12 mmol/L (10-20); BUN (Urea Nitrogen) 33 mg/dL (8.4-25.7); Calc. Creatinine Clearance 74 mL/min (70-130); Calcium 9.1 mg/dL (7.8-10.44); Carbon Dioxide 26 mmol/L (23-31); Chloride 110 mmol/L (98-107); Glucose 105 mg/dL (83-110); Potassium 4.1 mmol/L (3.5-5.1); Sodium 144 mmol/L (136-145)
[2021-05-07 06:49] LABS: Hemoglobin 11.9 g/dL (14.0-18.0); Mean Corpuscular HGB CONC 32.6 g/dL (32.0-36.0); Mean Corpuscular Hemoglobin 31.6 pg (27.0-31.0); Mean Corpuscular Volume 96.9 fL (78.0-98.0); Mean Platelet Volume 10.1 fL (7.4-10.4); Platelet Count 100 thou/uL (130-400); RBC Distribution Width 13.7 % (11.5-14.5); Red Blood Cell (RBC) Count 3.77 mill/uL (4.70-6.10); White Blood Cell (WBC) Count 13.5 thou/uL (4.8-10.8)
[2021-05-07 06:50] LABS: Band 4 % (5-11); Lymphocytes 8 % (21-51); MDiff Complete? YES; Monocytes 6 % (0-10); Neutrophil 82 % (42-75); Platelet Morphology Comment Appears Decreased
[2021-05-07] MEDS ORDERED: Lisinopril 5 MG TAB PER TUBE SCH (09:00)
[2021-05-07] MEDS: Divalproex Sodium 125 mg Sprinkle Capsule PER TUBE SCH ×2 (09:26→21:39)
[2021-05-07] MEDS: Atenolol 25 MG TAB PER TUBE SCH ×2 (09:27→21:39)
[2021-05-07] MEDS: Amlodipine 10 MG TAB PER TUBE SCH (09:27)
[2021-05-07] MEDS: Dexamethasone 10 MG/ML VIAL SLOW IVP SCH (09:27)
[2021-05-07] MEDS: Pantoprazole 40 MG VIAL IVP SCH (09:28)
[2021-05-07 15:41] LABS: Vancomycin, Trough 42.4 ug/mL
[2021-05-07] MEDS: cefTRIAXone\\ROCEPHIN 1 GM in Sodium Chloride 0.9% 100 ML IVPB SCH (16:47)
[2021-05-07] MEDS: Tamsulosin HCl 0.4 MG CAP PO SCH (21:39)
[2021-05-07] MEDS: Finasteride 5 MG TAB PO SCH (21:39)
[2021-05-07] MEDS: Polyethylene Glycol 3350 17 GM Packet PER TUBE SCH (21:40)
[2021-05-08] MEDS: Vancomycin 1 GM in Premix Bag 1 BAG IVPB SCH (00:28)
[2021-05-08 01:18] LABS: Vancomycin, Trough 25.2 ug/mL
[2021-05-08 09:24] LABS: #Eosinphils 0.1 thou/uL (0.0-0.7); #Lymphocytes 0.8 thou/uL (1.20-3.40); #Neutrophils 10.4 thou/uL (1.40-6.50); %Basophils 0.3 % (0.0-1.0); %Eosinophils 0.6 % (0.0-10.0); %Lymphocytes 6.5 % (21.0-51.0); %Monocytes 7.7 % (0.0-10.0); %Neutrophils 84.9 % (42.0-75.0); Hemoglobin 11.6 g/dL (14.0-18.0); Mean Corpuscular HGB CONC 31.5 g/dL (32.0-36.0); Mean Corpuscular Hemoglobin 30.8 pg (27.0-31.0); Mean Corpuscular Volume 97.6 fL (78.0-98.0); Mean Platelet Volume 9.7 fL (7.4-10.4); Platelet Count 125 thou/uL (130-400); RBC Distribution Width 13.9 % (11.5-14.5); Red Blood Cell (RBC) Count 3.76 mill/uL (4.70-6.10); White Blood Cell (WBC) Count 12.3 thou/uL (4.8-10.8)
[2021-05-08] MEDS: Divalproex Sodium 125 mg Sprinkle Capsule PER TUBE SCH ×2 (09:37→20:45)
[2021-05-08] MEDS: Polyethylene Glycol 3350 17 GM Packet PER TUBE SCH ×2 (09:37→20:46)
[2021-05-08] MEDS: Dexamethasone 10 MG/ML VIAL SLOW IVP SCH (09:37)
[2021-05-08] MEDS: Pantoprazole 40 MG VIAL IVP SCH (09:37)
[2021-05-08] MEDS: Enoxaparin Sodium 40 MG/0.4 ML SYRINGE SC SCH (09:37)
[2021-05-08] MEDS: Amlodipine 10 MG TAB PER TUBE SCH (09:38)
[2021-05-08] MEDS: Atenolol 25 MG TAB PER TUBE SCH ×2 (09:38→20:45)
[2021-05-08] MEDS: Lisinopril 5 MG TAB PER TUBE SCH (09:38)
[2021-05-08 09:48] LABS: Anion Gap 11 mmol/L (10-20); BUN (Urea Nitrogen) 28 mg/dL (8.4-25.7); Calc. Creatinine Clearance 79 mL/min (70-130); Calcium 8.7 mg/dL (7.8-10.44); Carbon Dioxide 29 mmol/L (23-31); Chloride 108 mmol/L (98-107); Glucose 217 mg/dL (83-110); Potassium 3.9 mmol/L (3.5-5.1); Sodium 144 mmol/L (136-145)
[2021-05-08] MEDS: HumaLOG 300 UNITS/3 ML VIAL SC PRN ×2 (11:14→18:01)
[2021-05-08 12:43] LABS: Vancomycin, Trough 22.8 ug/mL
[2021-05-08] MEDS: cefTRIAXone\\ROCEPHIN 1 GM in Sodium Chloride 0.9% 100 ML IVPB SCH (15:08)
[2021-05-08] MEDS: Tamsulosin HCl 0.4 MG CAP PO SCH (20:45)
[2021-05-08] MEDS: Finasteride 5 MG TAB PO SCH (20:46)
[2021-05-09 05:49] LABS: #Lymphocytes 0.8 thou/uL (1.20-3.40); #Monocytes 0.8 thou/uL (0.11-0.59); #Neutrophils 9.4 thou/uL (1.40-6.50); %Eosinophils 0.3 % (0.0-10.0); %Monocytes 7.4 % (0.0-10.0); %Neutrophils 85.3 % (42.0-75.0); Hemoglobin 11.6 g/dL (14.0-18.0); Mean Corpuscular HGB CONC 32.9 g/dL (32.0-36.0); Mean Corpuscular Hemoglobin 32.7 pg (27.0-31.0); Mean Corpuscular Volume 99.5 fL (78.0-98.0); Mean Platelet Volume 9.8 fL (7.4-10.4); Platelet Count 111 thou/uL (130-400); RBC Distribution Width 14.2 % (11.5-14.5); Red Blood Cell (RBC) Count 3.54 mill/uL (4.70-6.10)
[2021-05-09 06:01] LABS: Anion Gap 11 mmol/L (10-20); BUN (Urea Nitrogen) 40 mg/dL (8.4-25.7); Calc. Creatinine Clearance 74 mL/min (70-130); Calcium 8.5 mg/dL (7.8-10.44); Carbon Dioxide 32 mmol/L (23-31); Chloride 106 mmol/L (98-107); Glucose 207 mg/dL (83-110); Sodium 145 mmol/L (136-145)
[2021-05-09] MEDS: HumaLOG 300 UNITS/3 ML VIAL SC PRN (06:13)
[2021-05-09 08:28] VITALS: TEMP 97.4
[2021-05-09] MEDS: Divalproex Sodium 125 mg Sprinkle Capsule PER TUBE SCH (09:34)
[2021-05-09] MEDS: Dexamethasone 10 MG/ML VIAL SLOW IVP SCH (09:34)
[2021-05-09] MEDS: Polyethylene Glycol 3350 17 GM Packet PER TUBE SCH (09:34)
[2021-05-09] MEDS: Pantoprazole 40 MG VIAL IVP SCH (09:35)
[2021-05-09] MEDS: Atenolol 25 MG TAB PER TUBE SCH (09:35)
[2021-05-09] MEDS: Lisinopril 5 MG TAB PER TUBE SCH (09:35)
[2021-05-09] MEDS: Enoxaparin Sodium 40 MG/0.4 ML SYRINGE SC SCH (09:35)
[2021-05-09] MEDS: Amlodipine 10 MG TAB PER TUBE SCH (09:35)
[2021-05-09 11:56] VITALS: BP 142/71
[2021-05-09 12:23] VITALS: BMI 24.2
== END 2021-05-09 14:20 | DRG 177 ==
LOC: ERS 02:02 → IMCU/EMU 04:47 → 2SW 04-30 18:08 → 2NO 05-03 13:05
PROVIDERS: ADMIT Internal Medicine; ATTEND Hospitalist
PROC: 8E0ZXY6 Isolation (ICD-10-PCS; principal; 2021-04-29)
PROC: 0D758ZZ Dilation of Esophagus, Via Natural or Artificial Opening Endoscopic (ICD-10-PCS; 2021-05-06)
PROC: 0DB78ZX Excision of Stomach, Pylorus, Via Natural or Artificial Opening Endoscopic, Diagnostic (ICD-10-PCS; 2021-05-06)
PROC: 0DH63UZ Insertion of Feeding Device into Stomach, Percutaneous Approach (ICD-10-PCS; 2021-05-06)
DX: U07.1 COVID-19 (principal); J96.21 Acute and chronic respiratory failure with hypoxia; G93.41 Metabolic encephalopathy; J12.82 Pneumonia due to coronavirus disease 2019; J69.0 Pneumonitis due to inhalation of food and vomit; J15.9 Unspecified bacterial pneumonia; N17.9 Acute kidney failure, unspecified; E87.0 Hyperosmolality and hypernatremia; J44.0 Chronic obstructive pulmonary disease with (acute) lower respiratory infection; N18.4 Chronic kidney disease, stage 4 (severe); E87.2 Acidosis; N30.00 Acute cystitis without hematuria; Z51.5 Encounter for palliative care; N40.0 Benign prostatic hyperplasia without lower urinary tract symptoms; I12.9 Hypertensive chronic kidney disease with stage 1 through stage 4 chronic kidney disease, or unspecified chronic kidney disease; I48.0 Paroxysmal atrial fibrillation; F31.9 Bipolar disorder, unspecified; G30.9 Alzheimer's disease, unspecified; E86.0 Dehydration; D63.1 Anemia in chronic kidney disease; F02.80 Dementia in other diseases classified elsewhere, unspecified severity, without behavioral disturbance, psychotic disturbance, mood disturbance, and anxiety; R13.12 Dysphagia, oropharyngeal phase; Z79.51 Long term (current) use of inhaled steroids; Z79.899 Other long term (current) drug therapy
CPT/HCPCS: 36415; 36416; 36600; 70450; 71045; 72125; 76770; 80048; 80053; 80178; 80202; 81001; 82553; 82805; 83605; 83735; 83880; 84484; 85025; 85379; 86140; 87040; 87086; 88305; 88312; 93005; 96374; 96375; 96376; B4087; C9113; J0692; J0696; J1100; J1630; J1644; J1650; J1815; J2060; J2270; J2704; J2930; J3370; J3490; J7042; J7070; J7120; S0028